=== PATIENT | female | born 1965 | race Caucasian/White ===

== ENCOUNTER 2019-08-25 13:45 | Outpatient (CLI) | payer MEDICARE, SELFPAY ==
[2019-08-25 13:56] LABS: Basophils Absolute Auto 0.1 K/mm3 (0.0-0.1); Basophils Percent Auto 1.3 % (0.2-1.2); Eosinophils Absolute Auto 0.2 K/mm3 (0-0.3); Eosinophils Percent Auto 3.9 % (0-4.4); Hematocrit 40.5 % (37.0-47.0); Hemoglobin 13.4 g/dL (12.0-15.0); Immature Granulocyte Absolute 0.01 K/mm3 (0.00-0.031); Immature Granulocyte Percent A 0.3 % (0-0.5); Lymphocytes Absolute Auto 1.09 K/mm3 (0.9-3.2); Lymphocytes Percent Auto 28.5 % (18.3-44.2); Mean Corpuscular HGB Conc 33.1 g/dl (32-36); Mean Corpuscular Hemoglobin 30.7 pg (26-34); Mean Corpuscular Volume 92.7 fl (80-100); Mean Platelet Volume 10.5 fl (7.4-10.4); Monocytes Absolute Auto 0.3 K/mm3 (0.1-0.6); Monocytes Percent Auto 8.1 % (2.6-8.5); Neutrophils Absolute Auto 2.2 K/mm3 (1.3-6.7); Neutrophils Percent Auto 57.9 % (45.5-73.1); Platelet Count Result 221 k/mm3 (150-375); Red Blood Count 4.37 M/mm3 (4.2-5.4); Red Cell Distribution Width 12.5 % (11.5-14.5); White Blood Count 3.8 K/mm3 (4.5-10.0)
[2019-08-25 14:06] LABS: Cholesterol 166 mg/dL (0-200); HDL Direct 70 mg/dL; Triglycerides 103 mg/dL (<150)
[2019-08-25 14:11] LABS: CRP < 0.5 mg/dL (<1.0)
[2019-08-25 14:17] LABS: LDL Cholesterol Direct 73 mg/dL
[2019-08-25 14:19] LABS: Erythrocyte Sedimentation Rate 7 mm/hr (0-20)
[2019-08-25 14:35] LABS: Free T4 Free Thyroxine 0.97 ng/mL (0.78-2.19)
[2019-08-28 01:59] LABS: Homocysteine 13.7 umol/L (<10.4)
[2019-08-30 15:55] LABS: Vitamin D 1,25 (OH)2 Total 49 pg/mL (18-72); Vitamin D2 1,25 (OH)2 38 pg/mL; Vitamin D3 1,25 (OH)2 11 pg/mL
== END 2019-08-25 13:46 | disposition home or self-care (01) ==
PROVIDERS: PCP Internal Medicine; Visit Provider Internal Medicine
DX: E78.2 Mixed hyperlipidemia (principal); Z79.899 Other long term (current) drug therapy; I10 Essential (primary) hypertension; E55.9 Vitamin D deficiency, unspecified; R79.89 Other specified abnormal findings of blood chemistry; H57.12 Ocular pain, left eye; R51 Headache
CPT/HCPCS: 36415; 80061; 82652; 83090; 84439; 84443; 85025; 85652; 86140

== ENCOUNTER 2019-10-10 14:19 | Outpatient (CLI) | payer MEDICARE, SELFPAY ==
--- NOTE | ~2019-10-10 | XR_ITS ---
EXAMINATION: XR chest 2V DATE: 10/10/2019 14:49 INDICATION: Cough, shortness of breath, fever TECHNIQUE: Frontal and lateral views of the chest are obtained COMPARISON: 06/18/2017 FINDINGS: The lungs are free of acute opacities. There is no pleural effusion or pneumothorax. The ca rdiomediastinal silhouette is normal. There is mild thoracic spondylosis. IMPRESSION: 1. No acute cardiopulmonary abnormality. Reviewed, dictated and finalized at location B.
[2019-10-10 15:05] LABS: Influenza Control Positive
== END 2019-10-10 14:20 | disposition home or self-care (01) ==
PROVIDERS: PCP Internal Medicine; Visit Provider Internal Medicine
DX: R05 Cough (principal); R09.89 Other specified symptoms and signs involving the circulatory and respiratory systems
CPT/HCPCS: 71046; 87804

== ENCOUNTER 2019-12-23 15:05 | Outpatient (CLI) | payer MEDICARE, SELFPAY ==
--- NOTE | ~2019-12-23 | MM_ITS ---
EXAMINATION: MM screening biju BI w lisandro HISTORY: Screening mammogram TECHNIQUE: Craniocaudal and mediolateral oblique 3-D tomosynthesis images were obtained and synthetic 2-D images were generated. CAD analysis was submitted and interpreted. COMPARISON: 08/07/2018, 07/01/2017, 01/08/2016 bilateral digital mammogram examinations 01/08/2016 complete right breast ultrasound BREAST PARENCHYMAL COMPOSITION: The breasts are heterogeneously dense, which may obscure small masses . FINDINGS: There is no evidence of suspicious mass, calcification, or architectural distortion to sugg est malignancy in either breast. There has been no suspicious interval change. IMPRESSION: 1. No mammographic evidence of malignancy. 2. Recommend routine screening mammography in one year. BI-RADS Category 1: Negative Reviewed, dictated and finalized at location A.
== END 2019-12-23 15:06 | disposition home or self-care (01) ==
PROVIDERS: PCP Internal Medicine; Visit Provider Obstetrics & Gynecology
DX: Z12.31 Encounter for screening mammogram for malignant neoplasm of breast (principal)
CPT/HCPCS: 77063; 77067

== ENCOUNTER 2020-06-05 10:05 | Outpatient (CLI) | payer MEDICARE, SELFPAY ==
[2020-06-05 11:24] LABS: Basophils Percent Auto 0.9 % (0.2-1.2); Eosinophils Absolute Auto 0.1 K/mm3 (0-0.3); Eosinophils Percent Auto 1.1 % (0-4.4); Hemoglobin 14.2 g/dL (12.0-15.0); Immature Granulocyte Absolute 0.02 K/mm3 (0.00-0.031); Immature Granulocyte Percent A 0.4 % (0-0.5); Lymphocytes Absolute Auto 0.88 K/mm3 (0.9-3.2); Lymphocytes Percent Auto 19.1 % (18.3-44.2); Mean Corpuscular Hemoglobin 31.2 pg (26-34); Mean Corpuscular Volume 94.5 fl (80-100); Mean Platelet Volume 9.3 fl (7.4-10.4); Monocytes Absolute Auto 0.4 K/mm3 (0.1-0.6); Monocytes Percent Auto 8.5 % (2.6-8.5); Neutrophils Absolute Auto 3.2 K/mm3 (1.3-6.7); Platelet Count Result 277 k/mm3 (150-375); Red Blood Count 4.55 M/mm3 (4.2-5.4); Red Cell Distribution Width 12.2 % (11.5-14.5); White Blood Count 4.6 K/mm3 (4.5-10.0)
[2020-06-05 11:39] LABS: Alanine Aminotransferase 13 U/L (4-35); Albumin Level 4.9 g/dL (3.5-5.1); Alkaline Phosphatase 108 U/L (38-126); Anion Gap 12 mmol/L (8-16); Aspartate Amino Transferase 22 U/L (14-36); Bilirubin,Total 0.3 mg/dL (0.2-1.3); Blood Urea Nitrogen 12 mg/dL (7-17); Calcium 9.2 mg/dL (8.4-10.2); Carbon Dioxide 24 mmol/L (22-30); Chloride 100 mmol/L (98-107); Cholesterol 193 mg/dL (0-200); Estimated Glomerular Filt Rate > 60; Glucose 103 mg/dL (65-105); HDL Direct 98 mg/dL; Magnesium 1.9 mg/dL (1.6-2.3); Potassium 4.6 mmol/L (3.4-5.0); Sodium 136 mmol/L (137-145); Triglycerides 129 mg/dL (<150)
[2020-06-05 11:50] LABS: LDL Cholesterol Direct 61 mg/dL
[2020-06-05 12:24] LABS: Free T4 Free Thyroxine 0.71 ng/mL (0.78-2.19)
[2020-06-05 12:46] LABS: Folic Acid > 20.0 ng/mL (2.76->20); Vitamin B12 > 1000.0 pg/mL (239-931)
--- NOTE | 2020-06-11 12:47 | WPDHOLTEREM ---
Holter/Event Monitor Holter/Event Monitor Date of procedure: 06/05/20 Procedure Type: 48 hour holter monitor Indications: Tachycardia Conclusion: 1. 48 hour holter monitor on 06/05/20. 2. Underlying rhythm is sinus rhythm. HR range 53-132 bpm; average HR 78 bpm. 3. There are 17 premature supraventricular complexes and 1 supraventricular couplet. No supraventricular tachycardia. 4. There are 342 premature ventricular complexes. No ventricular tachycardia. 5. No sinoatrial or atrioventricular blocks. No significant pauses greater than 2 seconds. 6. Patient reports symptoms of throbbing head pain, lightheadedeness, overbeating, chest throbbing which demonstrate sinus rhythm, HR range 59-120 bpm.
== END 2020-06-05 10:06 | disposition home or self-care (01) ==
PROVIDERS: PCP Internal Medicine; Visit Provider Internal Medicine
DX: R00.0 Tachycardia, unspecified (principal); K21.9 Gastro-esophageal reflux disease without esophagitis; Z79.899 Other long term (current) drug therapy; E78.2 Mixed hyperlipidemia; I10 Essential (primary) hypertension; M35.2 Behcet's disease
CPT/HCPCS: 36415; 80053; 80061; 82607; 82746; 83735; 84439; 84443; 85025; 93225; 93226

== ENCOUNTER 2020-06-11 09:58 | Outpatient (CLI) | payer MEDICARE, SELFPAY ==
--- NOTE | ~2020-06-11 | CT_ITS ---
EXAMINATION: CTA chest DATE: 06/11/2020 10:47 INDICATION: Subclavian steal syndrome. TECHNIQUE: Computed tomographic angiography (CTA) of the chest was performed with 100 mL Omnipaque-35 0 intravenous contrast. Automated exposure control and iterative reconstruction technique were employ ed. The dose-length product was 236.18 mGy-cm. Maximum intensity projection 3D-reconstructions of the aorta and other arteries were constructed by the technologist on a separate workstation. COMPARISON: Chest CT 06/09/2011, 05/08/2016 FINDINGS: The lungs demonstrate mild atelectasis. There is a 3 mm nodule in left lower lobe, likely b enign. A calcified left lung nodule and calcified left hilar and mediastinal lymph nodes are consiste nt with old granulomatous disease. No pleural effusion. The heart size is normal. There are coronary artery calcifications. No pericardial effusion. The heart size is normal. No pericardial effusion. Th ere is mild stenosis of proximal left subclavian artery. Left vertebral artery is dominant. Calcifica tions in the spleen are consistent with old granulomatous disease. There is mild thoracic spondylosis . IMPRESSION: 1. Mild stenosis of proximal left subclavian artery, likely not hemodynamically significant. Reviewed, dictated and finalized at location A. 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
== END 2020-06-11 09:59 | disposition home or self-care (01) ==
PROVIDERS: PCP Internal Medicine; Visit Provider Internal Medicine
DX: G45.8 Other transient cerebral ischemic attacks and related syndromes (principal); R00.0 Tachycardia, unspecified; I70.8 Atherosclerosis of other arteries
CPT/HCPCS: 71275; Q9967

== ENCOUNTER 2020-06-15 07:48 | Outpatient (CLI) | payer MEDICARE, SELFPAY ==
--- NOTE | 2020-06-15 07:58 | ECHO_ITS ---
Patient Info Name: Ruth Aguayo Age: 54 years : 1965 Gender: Female Ht: 67 in Wt: 150 lbs BSA: 1.80 m2 HR: 69 bpm BP: 132 / 81 mmHg Exam Date: 06/15/2020 8:15 AM Exam Location: [facility] Patient Status: Outpatient Admit Date: 06/15/2020 Staff Ordering Physician: Jacky Lee MD Auto Customize Painter: Chapin Bocanegra RDCS, RT Attending Provider: Jacky Lee MD Referring Physician: Rosa MONZON; Exam Type: CA echo doppler color flow Study Info Indications I10 - Essential (primary) hypertension Complete two-dimensional, color flow and Doppler transthoracic echocardiogram is performed. Strain analysis performed. Summary 1. Complete two-dimensional, color flow and Doppler transthoracic echocardiogram is performed. 2. Left ventricular chamber dimension is normal. 3. Left ventricular systolic function is normal, estimated at 60-65%. 4. The left ventricular diastolic function is normal. 5. E/e' 7 is not elevated. 6. Global longitudinal strain is normal at -20.1%. 7. No pulmonary hypertension, estimated pulmonary arterial systolic pressure is 28 mmHg. 8. Dilated inferior vena cava with >50% collapse upon inspiration consistent with elevated right atrial pressure, 10 mmHg. Left Ventricle E/e' 7 is not elevated. Global longitudinal strain is normal at -20.1%. Left ventricular chamber dimension is normal. Left ventricular systolic function is normal, estimated at 60-65%. The left ventricular diastolic function is normal. Right Ventricle Right ventricular chamber dimension is normal. Right ventricular systolic function is normal. Left Atria Left atrial chamber dimension is normal. Right Atria Right atrial chamber dimension is normal. Aortic Valve The aortic valve is trileaflet. There is no aortic valve stenosis. There is no aortic valve regurgitation. Pulmonic Valve There is no pulmonic regurgitation. Mitral Valve There is no mitral valve stenosis. There is no mitral valve regurgitation. Tricuspid Valve There is no tricuspid valve regurgitation. No pulmonary hypertension, estimated pulmonary arterial systolic pressure is 28 mmHg. Pericardium/Pleural There is no pericardial effusion. Inferior Vena Cava Dilated inferior vena cava with >50% collapse upon inspiration consistent with elevated right atrial pressure, 10 mmHg. Aorta The aortic root size at the sinus of Valsalva is normal. Left Ventricular Outflow Tract Name Value Normal LVOT 2D LVOT Diameter 2.0 cm LVOT Doppler LVOT Peak Gradient 4 mmHg LVOT Mean Gradient 2 mmHg LVOT VTI 18 cm LVOT VTI/AV VTI Ratio 0.6 LVOT Stroke Volume 54 ml LVOT CO 3.6 l/min LVOT CI 2.0 l/min/m2 Mitral Valve Name Value Normal
== END 2020-06-15 07:49 | disposition home or self-care (01) ==
PROVIDERS: PCP Internal Medicine; Visit Provider Internal Medicine
DX: I10 Essential (primary) hypertension (principal)
CPT/HCPCS: 93306

== ENCOUNTER 2020-10-09 10:02 | Outpatient (CLI) | payer MEDICARE, SELFPAY ==
--- NOTE | ~2020-10-09 | DEXA_ITS ---
Bone Density Report Name: Ruth Aguayo Age: 54 Sex: Female Ethnicity: White Date of : 1965 Indication: postmenopausal; parental hip fracture; height loss; inflammatory bowel disease; prior fracture; seizure disorder; hysterectomy; Referring Provider: VAMSI IRAHETA Study: Bone densitometry was performed. Exam Date: October 09, 2020 Accession number: [id number] Bone Density: Region BMD T-score Z-score Classification AP Spine (L1-L4) 0.937 -1.0 0.2 Normal Femoral Neck (Left) 0.704 -1.3 -0.2 Osteopenia Total Hip (Left) 0.800 -1.2 -0.4 Osteopenia Total Hip Bilateral Avg 0.799 -1.2 -0.4 Osteopenia Femoral Neck (Right) 0.700 -1.3 -0.2 Osteopenia Total Hip (Right) 0.796 -1.2 -0.4 Osteopenia World Health Organization criteria for BMD impression classify patients as: Normal (T-score at or above -1.0), Osteopenia (T-score between -1.0 and -2.5), or Osteoporosis (T-score at or below -2.5). 10-year Fracture Risk(1): Major Osteoporotic Fracture 23% Hip Fracture 0.9% Reported Risk Factors: [place] (), Neck BMD=0.700, BMI=24.0, previous fracture, parental fracture (1) FRAX(R) Version 3.08. Fracture probability calculated for an untreated patient. Fracture probability may be lower if the patient has received treatment. Previous Exams: Region Exam Age BMD T-score BMD Change BMD Change Date g/cm2 vs Baseline vs Previous AP Spine(L1-L4) 10/09/2020 54 0.937 -1.0 -0.251(-21.1%) -0.112(-10.7%) 01/14/2011 45 1.049 0.0 -0.138(-11.6%) -0.006(-0.5%) 12/14/2007 42 1.055 0.1 -0.133(-11.2%) -0.133(-11.2%) 11/19/2005 40 1.187 1.3 Total Hip(Left) 10/09/2020 54 0.800 -1.2 -0.258(-24.4%) -0.048(-5.7%)* 09/30/2018 52 0.848 -0.8 -0.210(-19.8%) -0.068(-7.4%)# 01/14/2011 45 0.916 -0.2 -0.142(-13.4%) -0.089(-8.8%)* 12/14/2007 42 1.005 0.5 -0.053(-5.0%)* -0.053(-5.0%)* 11/19/2005 40 1.058 1.0 Total Hip(Right) 10/09/2020 54 0.796 -1.2 -0.253(-24.1%) -0.044(-5.2%)* 09/30/2018 52 0.840 -0.8 -0.210(-20.0%) -0.046(-5.2%)# 01/14/2011 45 0.885 -0.5 -0.164(-15.6%) -0.114(-11.4%) 12/14/2007 42 0.999 0.5 -0.050(-4.8%)* -0.050(-4.8%)* 11/19/2005 40 1.049 0.9 *Denotes significance at 95% confidence level, LSC for AP Spine = 0.022 g/cm2, LSC for Total Hip = 0.027 g/cm2 Clinical Information Provided by Patient: Has had a low trauma fracture Parent has had a hip fracture Has used the following medications: Vitamin D, Calcium Has the follow
== END 2020-10-09 10:03 | disposition home or self-care (01) ==
LOC: ANHIMG 10:09
PROVIDERS: PCP Internal Medicine; Visit Provider Internal Medicine
DX: Z78.0 Asymptomatic menopausal state (principal); M85.852 Other specified disorders of bone density and structure, left thigh; M85.851 Other specified disorders of bone density and structure, right thigh
CPT/HCPCS: 77080

== ENCOUNTER → 2020-11-05 01:56 | Outpatient (CLI) | payer MEDICARE, SELFPAY ==
[2020-11-05 19:04] LABS: SARS-CoV-2 RNA PCR Negative
== END ==
PROVIDERS: PCP Internal Medicine; Visit Provider Internal Medicine Gastroenterology
DX: Z01.812 Encounter for preprocedural laboratory examination (principal); Z20.822 Contact with and (suspected) exposure to COVID-19
CPT/HCPCS: C9803; U0003; U0005

== ENCOUNTER 2020-11-08 01:53 | Day surgery (SDC) | payer MEDICARE, SELFPAY ==
[2020-11-02 13:10] VITALS: BMI 23.4
[2020-11-08 07:33] VITALS: BP 135/79; PULSE 90; RESP 16; TEMP 36.4; O2SAT 98; BMI 23.2
--- NOTE | 2020-11-08 07:45 | WPDANESEPPF ---
Anes - Initial Pre Proc Eval Procedure: Operation Date: 11/08/20 08:30 Proposed Procedures p Esophagogastroduodenoscopy & Screening Colonoscopy - Trevor Younger MD Date/Time: 11/08/20 07:45 Surgeon: Trevor Younger MD Pre Op Diagnosis: odynophagia, family hx of colon ca Patient Data Age: 55 Gender: F Height: 5 ft 7 in Weight: 67.2 kg Last Vital Signs Temp 36.4 C 11/08/20 07:33 Pulse 90 11/08/20 07:33 Resp 16 11/08/20 07:33 BP 135/79 11/08/20 07:33 Pulse Ox 98 11/08/20 07:33 Allergies Allergy/AdvReac Type Severity Reaction Status Date / Time sulfamethoxazole Allergy Intermediate Hives / Verified 11/08/20 07:31 Red Face trimethoprim Allergy Intermediate Hives / Verified 11/08/20 07:31 Red Face butorphanol Allergy Mild Other Verified 11/08/20 07:31 meperidine Allergy Mild Other Verified 11/08/20 07:31 adhesive tape Allergy Unknown Rash Verified 11/08/20 07:31 certolizumab pegol Allergy Unknown Other Verified 11/08/20 07:31 gentamicin Allergy Unknown RASH Verified 11/08/20 07:31 infliximab Allergy Unknown Other Verified 11/08/20 07:31 methocarbamol Allergy Unknown Other Verified 11/08/20 07:31 prochlorperazine Allergy Unknown DYSTONIA, Verified 11/08/20 07:31 UNCONTROLLABLE ACTIONS promethazine Allergy Unknown DYSTONIA, Verified 11/08/20 07:31 UNCONTROLLABLE ACTIONS Quinolones Allergy Unknown SEVERE Verified 11/08/20 07:31 VOMITING BUTORPHANOL TARTRATE Allergy Unknown Other Uncoded 11/08/20 07:31 MOXIFLOXACIN HCL Allergy Unknown Nausea and Uncoded 11/08/20 07:31 Vomiting PROCHLORPERAZINE EDISYLATE Allergy Unknown dystonia Uncoded 11/08/20 07:31 PROCHLORPERAZINE MALEATE Allergy Unknown dystonia Uncoded 11/08/20 07:31 SOLIFENACIN SUCCINATE Allergy Unknown Itching Uncoded 11/08/20 07:31 Tegaderm Allergy Rash Uncoded 11/08/20 07:31 Home Medications Medication Instructions Recorded Confirmed Type apremilast 30 mg tablet 30 mg PO BID 06/02/19 11/08/20 History aspirin 81 mg tablet,delayed 81 mg PO DAILY 06/02/19 11/08/20 History release colchicine 0.6 mg capsule 0.6 mg PO BID 06/02/19 11/08/20 History docusate sodium 100 mg capsule 200 mg PO DAILY cap 06/02/19 11/08/20 History meloxicam 15 mg tablet 15 mg PO DAILY 06/02/19 11/08/20 History topiramate 200 mg tablet 200 mg PO TID PRN 06/02/19 11/08/20 History magnesium chloride 71.5 mg 71.5 mg PO DAILY #90 tablet 01/23/20 11/08/20 Rx (magnesium chloride) tablet,delayed release omeprazole 40 mg capsule,delayed 40 mg PO BID #180 cap 02/28/20 11/08/20 Rx release pravastatin 80 mg tablet 80 mg PO DAILY #90 tablet 06/19/20 11/08/20 Rx Naltrexone 3 mg PO DAILY 07/18/20 11/08/20 History cyanocobalamin (vitamin B-12) 1,000 mcg PO DAILY tablet 07/18/20 11/08/20 History 1,000 mcg tablet sennosides 17.2 mg tablet 17.2 mg PO DAILY #1 tablet 07/24/20 11/08/20 Rx diltiazem HCl 360 mg 360 mg PO DAILY #180 cap 08/14/20 11/08/20 Rx capsule,extended release 24 hr folic acid 1 mg tablet 1 mg PO DAILY #90 tablet 08/22/20 11/08/20 Rx hydroxyzine HCl 25 mg tablet See Rx Instructions .ROUTE 09/17/20 11/08/20 Rx .COMPLEX #180 tablet alendronate 70 mg tablet 70 mg PO WEEKLY #12 tablet 10/10/20 11/08/20 Rx rizatriptan 10 mg disintegrating See Rx Instructions .ROUTE 10/16/20 11/08/20 Rx tablet .COMPLEX #30 tablet Docusate/Senokot 3 tablet PO DAILY 11/02/20 11/08/20 History carbamazepine 200 mg PO TID PRN 11/02/20 11/08/20 History dicyclomine 10 mg PO QID PRN 11/02/20 11/08/20 History ondansetron HCl See Rx Instructions .ROUTE 11/02/20 11/08/20 History .COMPLEX PRN tizanidine 2 mg PO QID PRN 11/02/20 11/08/20 History Patient hx anesthesia problems: none Family hx anesthesia problems: none PMFSH Past Medical History Medical History Anxiety Behcet's disease Benign essential hypertension BMI 24.0-24.9, adult Bronchopneumonia Chronic low back pain
[2020-11-08] MEDS: LACTATED RINGERS 1,000 ML 150 ML IV CONT (07:49)
--- NOTE | 2020-11-08 08:07 | PM.HPGS ---
History of Present Illness History of Present Illness Consent: Risks, benefits, and alternatives have been discussed and questions answered. Patient agrees to proceed with procedure. 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 She also has a family history of colon cancer and has had a polyp removed herself Review of Systems Review of Systems: All systems reviewed & are unremarkable except as noted in HPI and below PMFSH Past Medical History Medical History Anxiety Behcet's disease Benign essential hypertension BMI 24.0-24.9, adult Bronchopneumonia Chronic low back pain Chronic pain Colon cancer screening Cough Depression Diverticulitis Diverticulitis Dystonia Elevated homocysteine Encounter for preventive health examination Fibromyalgia Fibromyalgia affecting multiple sites Flu-like symptoms Follow up GERD (gastroesophageal reflux disease) Hyperlipidemia Interstitial cystitis Migraine headache On fdc drug therapy Palpitations Pancolitis Peripheral neuropathy Post menopausal syndrome Postmenopausal RLQ abdominal pain Seizures Shortness of breath Stenosis of left subclavian artery Tachycardia Vitamin D deficiency Family History Family History Mother Hypertension Family history of lupus erythematosus Grandparent Carcinoma of colon Family history of coronary artery disease Family history of rheumatoid arthritis Family history of primary malignant neoplasm of liver Other Family history of cardiovascular disease Family history of gastrointestinal disorder Social History Social History Smoking packs per day: 1 Smoking cigarettes per day: 20.0 Years smoked: 20 Smoking pack-years: 20.00 Smoking status: Former smoker Second hand tobacco smoke exposure: No Smoking end date: 07/20/11 Alcohol intake: current Living arrangements: alone Gender identity (if verbalized by the patient): Female Spiritual care concerns: No Meds Home Medications and Allergies Home Medications Medication Instructions Recorded Confirmed Type apremilast 30 mg tablet 30 mg PO BID 06/02/19 11/08/20 History aspirin 81 mg tablet,delayed 81 mg PO DAILY 06/02/19 11/08/20 History release colchicine 0.6 mg capsule 0.6 mg PO BID 06/02/19 11/08/20 History docusate sodium 100 mg capsule 200 mg PO DAILY cap 06/02/19 11/08/20 History meloxicam 15 mg tablet 15 mg PO DAILY 06/02/19 11/08/20 History topiramate 200 mg tablet 200 mg PO TID PRN 06/02/19 11/08/20 History magnesium chloride 71.5 mg 71.5 mg PO DAILY #90 tablet 01/23/20 11/08/20 Rx (magnesium chloride) tablet,delayed release omeprazole 40 mg capsule,delayed 40 mg PO BID #180 cap 02/28/20 11/08/20 Rx release pravastatin 80 mg tablet 80 mg PO DAILY #90 tablet 06/19/20 11/08/20 Rx Naltrexone 3 mg PO DAILY 07/18/20 11/08/20 History cyanocobalamin (vitamin B-12) 1,000 mcg PO DAILY tablet 07/18/20 11/08/20 History 1,000 mcg tablet sennosides 17.2 mg tablet 17.2 mg PO DAILY #1 tablet 07/24/20 11/08/20 Rx diltiazem HCl 360 mg 360 mg PO DAILY #180 cap 08/14/20 11/08/20 Rx capsule,extended release 24 hr folic acid 1 mg tablet 1 mg PO DAILY #90 tablet 08/22/20 11/08/20 Rx hydroxyzine HCl 25 mg tablet See Rx Instructions .ROUTE 09/17/20 11/08/20 Rx .COMPLEX #180 tablet alendronate 70 mg tablet 70 mg PO WEEKLY #12 tablet 10/10/20 11/08/20 Rx rizatriptan 10 mg disintegrating See Rx Instructions .ROUTE 10/16/20 11/08/20 Rx tablet .COMPLEX #30 tablet Docusate/Senokot 3 tablet PO DAILY 11/02/20 11/08/20 History carbamazepine 200 mg PO TID PRN 11/02/20 11/08/20 History dicyclomine 10 mg PO QID PRN 11/02/20 11/08/20 History ondansetron HCl See
--- NOTE | 2020-11-08 08:25 | SUR.OPER ---
08 EGD COMPLETED, 829 COLONOSCOPY STARTED
[2020-11-08 08:56] VITALS: BP 120/97; PULSE 76; RESP 14; O2SAT 99
[2020-11-08 09:06] VITALS: BP 134/87; PULSE 74; RESP 20; O2SAT 100
[2020-11-08 09:16] VITALS: BP 130/91; PULSE 78; RESP 18; O2SAT 100
== END 2020-11-08 09:32 | disposition home or self-care (01) ==
PROVIDERS: PCP Internal Medicine; Visit Provider Internal Medicine Gastroenterology
PROC: 0DJ08ZZ Inspection of Upper Intestinal Tract, Via Natural or Artificial Opening Endoscopic (ICD-10-PCS; CPT 43235; principal; 2020-11-08 08:30)
DX: Z12.11 Encounter for screening for malignant neoplasm of colon (principal); D12.2 Benign neoplasm of ascending colon; K22.70 Barrett's esophagus without dysplasia; K21.9 Gastro-esophageal reflux disease without esophagitis; Z80.0 Family history of malignant neoplasm of digestive organs; M35.2 Behcet's disease; E78.5 Hyperlipidemia, unspecified; E55.9 Vitamin D deficiency, unspecified; F41.8 Other specified anxiety disorders; I10 Essential (primary) hypertension; M79.7 Fibromyalgia; G24.9 Dystonia, unspecified; G62.9 Polyneuropathy, unspecified; G40.909 Epilepsy, unspecified, not intractable, without status epilepticus; Z79.82 Long term (current) use of aspirin; Z87.891 Personal history of nicotine dependence
CPT/HCPCS: 45381; 45388; 43239; 88305; 88313; J2704; J7120

== ENCOUNTER 2020-11-22 12:46 | Outpatient (CLI) | payer MEDICARE, SELFPAY ==
--- NOTE | ~2020-11-22 | US_ITS ---
EXAMINATION: US carotid duplex BI DATE: 11/22/2020 13:31 INDICATION: Carotid atherosclerosis presenting with other specified symptoms and signs involving the cervicothoracic/respiratory system. TECHNIQUE: Grayscale, color Doppler, and pulsed Doppler images of the cervical carotid arteries were obtained. The degree of vessel stenosis is placed in one of the following categories: normal, <50%, 5 0-69%, >=70% but less than near-occlusion, near-occlusion, or total occlusion. Note that percent sten osis relative to normal distal artery lumen diameter is indirectly measured from velocity measurement s as described by Bartolo, et al. Radiology 2003; 229:340-346. COMPARISON: None. FINDINGS: RIGHT: The right common carotid artery (CCA) peak systolic velocity (PSV) is 92 cm/s. The right internal car otid artery (ICA) PSV is 57 cm/s. The right ICA end-diastolic velocity (EDV) is 22 cm/s. The right IC A/CCA PSV ratio is 0.6. Grayscale and color Doppler images yield an estimate of <50% diameter reducti on from plaque in the ICA. The external carotid artery (ECA) PSV is 73 cm/s. There is antegrade flow in the right vertebral artery. LEFT: The left CCA PSV is 75 cm/s. The left ICA PSV is 87 cm/s. The left ICA EDV is 35 cm/s. The left ICA/C CA PSV ratio is 1.2. Grayscale and color Doppler images yield an estimate of <50% diameter reduction from plaque in the ICA. The ECA PSV is 77 cm/s. There is antegrade flow in the left vertebral artery. IMPRESSION: 1. <50% stenosis from minimal plaque in the right internal carotid artery. 2. <50% stenosis from minimal plaque in the left internal carotid artery. Reviewed, dictated and finalized at location A.
== END 2020-11-22 12:47 | disposition home or self-care (01) ==
PROVIDERS: PCP Internal Medicine; Visit Provider Internal Medicine Cardiovascular Disease
DX: I65.23 Occlusion and stenosis of bilateral carotid arteries (principal)
CPT/HCPCS: 93880

== ENCOUNTER 2020-12-06 15:55 | Outpatient (CLI) | payer MEDICARE, SELFPAY ==
--- NOTE | ~2020-12-06 | XR_ITS ---
XR knee RT min 4V DATE: 12/06/2020 16:26 INDICATION: Right knee pain, burning. No known injury. TECHNIQUE: 4 views COMPARISON: None FINDINGS: No fracture or dislocation or joint effusion. No periosteal reaction or bone destruction. N o radiopaque intra-articular loose body or chondrocalcinosis. There is mild loss of height of medial compartment joint space. IMPRESSION: Mild loss of height at medial compartment joint space Reviewed, dictated and finalized at location B.
== END 2020-12-06 15:56 | disposition home or self-care (01) ==
LOC: ANHIMG 16:02
PROVIDERS: PCP Internal Medicine; Visit Provider Internal Medicine
DX: M25.561 Pain in right knee (principal)
CPT/HCPCS: 73564

== ENCOUNTER 2021-02-25 15:43 | Outpatient (CLI) | payer MEDICARE, SELFPAY ==
--- NOTE | ~2021-02-25 | MM_ITS ---
EXAMINATION: MM screening biju BI w lisandro HISTORY: Screening TECHNIQUE: Craniocaudal and mediolateral oblique 3-D tomosynthesis images were obtained and synthetic 2-D images were generated. CAD analysis was submitted and interpreted. COMPARISON: Comparison to multiple prior studies sequentially, with oldest reviewed study dated 01/06. BREAST PARENCHYMAL COMPOSITION: The breasts are extremely dense, which lowers the sensitivity of mamm ography FINDINGS: There is no evidence of suspicious mass, calcification, or architectural distortion to sugg est malignancy in either breast. There has been no suspicious interval change. IMPRESSION: 1. No mammographic evidence of malignancy. 2. Recommend routine screening mammography in one year. BI-RADS Category 1: Negative Reviewed, dictated and finalized at location A.
== END 2021-02-25 15:44 | disposition home or self-care (01) ==
LOC: ANHIMG 15:46
PROVIDERS: PCP Internal Medicine; Visit Provider Obstetrics & Gynecology
DX: Z12.31 Encounter for screening mammogram for malignant neoplasm of breast (principal)
CPT/HCPCS: 77063; 77067

== ENCOUNTER 2021-06-24 16:09 | Outpatient (CLI) | payer MEDICARE, SELFPAY ==
[2021-06-24 16:40] LABS: Alanine Aminotransferase 16 U/L (4-35); Alkaline Phosphatase 113 U/L (38-126); Anion Gap 10 mmol/L (8-16); Aspartate Amino Transferase 24 U/L (14-36); Bilirubin,Total 0.4 mg/dL (0.2-1.3); Blood Urea Nitrogen 9 mg/dL (7-17); Calcium 9.6 mg/dL (8.4-10.2); Carbon Dioxide 21 mmol/L (22-30); Chloride 101 mmol/L (98-107); Cholesterol 186 mg/dL (0-200); Estimated Glomerular Filt Rate 57; Glucose 99 mg/dL (65-110); HDL Direct 109 mg/dL; Potassium 4.2 mmol/L (3.4-5.0); Sodium 132 mmol/L (137-145); Triglycerides 137 mg/dL (<150)
[2021-06-24 16:51] LABS: LDL Cholesterol Direct 51 mg/dL
[2021-06-24 17:41] LABS: Hemoglobin A1C 5.2 % (<5.7)
[2021-06-24 19:03] LABS: Vitamin D 25 Hydroxy 41.8 ng/mL
== END 2021-06-24 16:10 | disposition home or self-care (01) ==
PROVIDERS: PCP Internal Medicine; Visit Provider Internal Medicine
DX: Z79.899 Other long term (current) drug therapy (principal); I10 Essential (primary) hypertension; E78.2 Mixed hyperlipidemia; E55.9 Vitamin D deficiency, unspecified
CPT/HCPCS: 36415; 80053; 80061; 82306; 83036; 84439; 84443

== ENCOUNTER 2021-06-28 14:30 | Outpatient (CLI) | payer MEDICARE, BC, SELFPAY ==
--- NOTE | ~2021-06-28 | CT_ITS ---
EXAMINATION: CTA brain carotid DATE: 06/28/2021 15:09 INDICATION: Bruit of left carotid artery. TECHNIQUE: Computed tomographic angiography (CTA) of the head was performed without and with 100 mL O mnipaque-350 intravenous contrast. CTA of the neck was performed with intravenous contrast. Automated exposure control and iterative reconstruction technique were employed. The dose-length product was 1 728.29 mGy-cm. Maximum intensity projection and volume rendered 3D-reconstructions were created by ranjit jarrett technologist on a separate workstation. COMPARISON: Head CT 8 12/12/2015, brain MRI 02/10/2017 FINDINGS: HEAD CTA: There is no intracranial hemorrhage, acute infarction, or abnormal intracranial mass lesion . There is an old lacunar infarct in the right lentiform nucleus. The ventricles are normal in size. The paranasal sinuses are clear. The mastoid air cells are normal. The orbits are normal. Left verteb ral artery is dominant. There is no significant stenosis of basilar artery or the posterior cerebral arteries. The posterior communicating arteries are normal. There is no significant stenosis of the in tracranial internal carotid arteries or anterior or middle cerebral arteries. Anterior communicating artery is normal. There is no aneurysm. NECK CTA: There is mild scarring at the lung apices. There is no significant stenosis of the vertebra l arteries. There is minimal plaque in the proximal internal carotid arteries. There is 0% stenosis o f the proximal right internal carotid artery relative to normal distal artery lumen diameter (NASCET criteria). There is 0% stenosis of the proximal left internal carotid artery relative to normal dista l artery lumen diameter. There are nodules in the thyroid measuring up to 4 mm, likely not clinically significant. There is moderate cervical spondylosis. IMPRESSION: 1. Old lacunar infarct in the right lentiform nucleus. 2. No aneurysm or significant intracranial arterial stenosis. 3. 0% stenosis of the proximal internal carotid arteries relative to normal distal artery lumen diame ters (NASCET criteria). Reviewed, dictated and finalized at location A. 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 Old lacunar infarct in the right lentiform nucleus. 2. No aneurysm or significant intracranial arterial stenosis. 3. 0% stenosis of the proximal internal carotid arteries relative to normal dis madeleine artery lumen diameters (NASCET criteria).
== END 2021-06-28 14:31 | disposition home or self-care (01) ==
LOC: ANHIMG 14:32
PROVIDERS: PCP Internal Medicine; Visit Provider Internal Medicine Cardiovascular Disease
DX: Z86.73 Personal history of transient ischemic attack (TIA), and cerebral infarction without residual deficits (principal); R09.89 Other specified symptoms and signs involving the circulatory and respiratory systems
CPT/HCPCS: 70496; 70498; Q9967

== ENCOUNTER 2022-02-17 11:50 | Outpatient (CLI) | payer MEDICARE, SELFPAY ==
[2022-02-17 12:31] LABS: Add Urine Microscopic? NO; Appearance Urine Clear (Clear); Bilirubin Urine Negative (Negative); Blood Urine Negative (Negative); Color Urine Yellow (Yellow); Glucose Urine UA Negative (Negative); Ketones Urine Negative (Negative); Leukocyte Esterase Ur Negative LEU/UL (Negative); Nitrate Urine Negative (Negative); Protein Urine Negative (Negative); Urobilinogen Urine 0.2 mg/dL (<2.0)
== END 2022-02-17 11:51 | disposition home or self-care (01) ==
PROVIDERS: PCP Internal Medicine; Visit Provider Internal Medicine
DX: R39.9 Unspecified symptoms and signs involving the genitourinary system (principal)
CPT/HCPCS: 81003

== ENCOUNTER 2022-02-21 11:37 | Outpatient (CLI) | payer MEDICARE, SELFPAY ==
--- NOTE | ~2022-02-21 | XR_ITS ---
XR thoracic spine 3V DATE: 02/21/2022 12:08 INDICATION: Upper back pain. No trauma. TECHNIQUE: AP, lateral, swimmer views COMPARISON: None FINDINGS: Osteopenia. There is degenerative disc disease of the lower cervical spine. There is mild levoscoliosis of the thoracic spine. No fracture or dislocation or bone destruction is detected. The thoracic pedicles are intact. There is mild degenerative spurring of the thoracic spine . No paraspinal soft tissue thickening. IMPRESSION: Osteopenia. Mild levoscoliosis Mild degenerative spurring of the thoracic spine Degenerative disc disease of the lower cervical spine Reviewed, dictated and finalized at location B.
--- NOTE | ~2022-02-21 | XR_ITS ---
XR_CERV2-3V_CR DATE: 02/21/2022 12:08 INDICATION: Neck pain TECHNIQUE: AP, open-mouth, lateral views COMPARISON: None FINDINGS: C1 and C2 are normally aligned and the odontoid process is intact. No fracture or dislocati on or locked facet or prevertebral soft tissue swelling. There is moderate loss of height at the C4-5 interspace with mild posterior spurring. There is mild loss of height at C5-6 interspace.. Moderate degenerative disc disease at C6-7. IMPRESSION: Mild cervical spondylosis Reviewed, dictated and finalized at Location A. Reviewed, dictated and finalized at location B. IMPRESSION: Mild cervical spondylosis
--- NOTE | ~2022-02-21 | XR_ITS ---
EXAMINATION: XR shoulder LT min 2V DATE: 02/21/2022 12:08 INDICATION: Left scapula pain. Dorsalgia. TECHNIQUE: 4 views of left shoulder were obtained. COMPARISON: Left shoulder radiographs 02/12/2008 FINDINGS: Bone alignment is normal. No fracture. There is mild osteoarthritis of glenohumeral joint a nd severe osteoarthritis of acromioclavicular joint. IMPRESSION: 1. Polyarticular osteoarthritis. Reviewed, dictated and finalized at location A.
== END 2022-02-21 11:38 | disposition home or self-care (01) ==
PROVIDERS: PCP Internal Medicine; Visit Provider Internal Medicine
DX: M25.519 Pain in unspecified shoulder (principal); M54.9 Dorsalgia, unspecified; M85.88 Other specified disorders of bone density and structure, other site; M41.84 Other forms of scoliosis, thoracic region; M50.30 Other cervical disc degeneration, unspecified cervical region; M47.812 Spondylosis without myelopathy or radiculopathy, cervical region; M19.012 Primary osteoarthritis, left shoulder
CPT/HCPCS: 72040; 72072; 73030

== ENCOUNTER 2022-03-18 11:51 | Outpatient (CLI) | payer MEDICARE, SELFPAY ==
--- NOTE | ~2022-03-18 | XR_ITS ---
EXAMINATION: XR chest 2V DATE: 03/18/2022 12:57 INDICATION: Cough, unspecified. TECHNIQUE: Frontal and lateral views of the chest were obtained. COMPARISON: Chest 2 views 10/10/2019 FINDINGS: There is no pneumonia, pleural effusion, or pneumothorax. A calcified left lung nodule and calcified mediastinal lymph nodes are consistent with old granulomas disc disease. The heart size is normal. IMPRESSION: 1. No acute cardiopulmonary disease. Reviewed, dictated and finalized at location A.
[2022-03-18 13:28] LABS: Anion Gap 16 mmol/L (8-16); Blood Urea Nitrogen 11 mg/dL (7-17); Calcium 9.5 mg/dL (8.4-10.2); Carbon Dioxide 20 mmol/L (22-30); Chloride 105 mmol/L (98-107); Estimated Glomerular Filt Rate > 60; Glucose 99 mg/dL (65-110); Potassium 4.4 mmol/L (3.4-5.0); Sodium 141 mmol/L (137-145)
== END 2022-03-18 11:52 | disposition home or self-care (01) ==
PROVIDERS: PCP Internal Medicine; Visit Provider Internal Medicine
DX: R06.89 Other abnormalities of breathing (principal); R05.9 Cough, unspecified
CPT/HCPCS: 36415; 71046; 80048

== ENCOUNTER 2022-03-27 08:54 | Outpatient (CLI) | payer MEDICARE, SELFPAY ==
--- NOTE | ~2022-03-27 | MM_ITS ---
EXAMINATION: MM screening biju BI w lisandro HISTORY: Screening mammogram TECHNIQUE: Craniocaudal and mediolateral oblique 3-D tomosynthesis images were obtained and synthetic 2-D images were generated. CAD analysis was submitted and interpreted. COMPARISON: 03/07/2021, 12/23/2019, 08/07/2018, 07/01/2017 bilateral screening mammogram examinations BREAST PARENCHYMAL COMPOSITION: The breasts are heterogeneously dense, which may obscure small masses . FINDINGS: There is suggestion of asymmetry/architectural distortion anteriorly in the lower inner lef t breast; diagnostic left mammogram and left breast ultrasound examination are recommended. Otherwise there is no evidence of suspicious mass, calcification, or architectural distortion to sugg est malignancy in either breast. There has been no other suspicious interval change. IMPRESSION: 1. Suggestion of asymmetry/architectural distortion in the lower anterior inner left breast 2. Diagnostic left mammogram and left breast ultrasound examination are recommended BI-RADS Category 0: Incomplete: Needs additional imaging evaluation. Reviewed, dictated and finalized at location A. IMPRESSION: 1. Suggestion of asymmetry/architectural distortion in the lower anterior inner left breast 2. Diagnostic left mammogram and left breast ultrasound examination are recomme nded BI-RADS Category 0: Incomplete: Needs additional imaging evaluation.
== END 2022-03-27 08:55 | disposition home or self-care (01) ==
PROVIDERS: PCP Internal Medicine; Visit Provider Obstetrics & Gynecology
DX: Z12.31 Encounter for screening mammogram for malignant neoplasm of breast (principal); R92.8 Other abnormal and inconclusive findings on diagnostic imaging of breast
CPT/HCPCS: 77063; 77067

== ENCOUNTER 2022-04-02 11:25 | Outpatient (CLI) | payer MEDICARE, SELFPAY ==
[2022-04-02 12:05] LABS: Appearance Urine Clear (Clear); Bilirubin Urine Negative (Negative); Color Urine Yellow (Yellow); Glucose Urine UA Negative (Negative); Ketones Urine Negative (Negative); Leukocyte Esterase Ur Trace LEU/UL (Negative); Nitrate Urine Negative (Negative); Protein Urine Negative (Negative); Specific Grav Ur 1.015 (1.001-1.035); Urobilinogen Urine 0.2 mg/dL (<2.0); pH Urine 6.5 (5.0-9.0)
[2022-04-02 12:14] LABS: Mucus Urine Rare /lpf; RBC Urine 0-2 /hpf (0-2); WBC Urine 0-3 /hpf
[2022-04-02 12:15] LABS: Alanine Aminotransferase 16 U/L (6-35); Albumin Level 4.3 g/dL (3.5-5.1); Alkaline Phosphatase 110 U/L (38-126); Anion Gap 11 mmol/L (8-16); Aspartate Amino Transferase 17 U/L (14-36); Bilirubin,Total 0.4 mg/dL (0.2-1.3); Blood Urea Nitrogen 13 mg/dL (7-17); Carbon Dioxide 22 mmol/L (22-30); Chloride 105 mmol/L (98-107); Cholesterol 155 mg/dL (0-200); Estimated Glomerular Filt Rate 57; Glucose 105 mg/dL (65-110); HDL Direct 78 mg/dL; Potassium 4.3 mmol/L (3.4-5.0); Sodium 138 mmol/L (137-145); Triglycerides 81 mg/dL (<150)
[2022-04-02 12:26] LABS: LDL Cholesterol Direct 49 mg/dL
[2022-04-02 12:33] LABS: Add Urine Microscopic? YES; Blood Urine Trace-Intact (Negative)
[2022-04-02 12:54] LABS: Vitamin D 25 Hydroxy 43.5 ng/mL
[2022-04-02 13:03] LABS: Bacteria Urine Trace /hpf
[2022-04-02 13:28] LABS: Folic Acid > 20.0 ng/mL (2.76->20); Vitamin B12 > 1000.0 pg/mL (239-931)
== END 2022-04-02 11:26 | disposition home or self-care (01) ==
LOC: ANHLAB 11:28
PROVIDERS: PCP Internal Medicine; Visit Provider Internal Medicine
DX: E78.2 Mixed hyperlipidemia (principal); E55.9 Vitamin D deficiency, unspecified; I10 Essential (primary) hypertension; Z51.81 Encounter for therapeutic drug level monitoring; Z79.899 Other long term (current) drug therapy
CPT/HCPCS: 36415; 80053; 80061; 81001; 82306; 82607; 82746

== ENCOUNTER 2022-04-11 11:04 | Outpatient (CLI) | payer MEDICARE, SELFPAY ==
--- NOTE | ~2022-04-11 | MMUS_ITS ---
EXAMINATION: MM diagnostic biju LT w lisandro, US breast LT limited HISTORY: Left breast asymmetry on screening mammogram TECHNIQUE: Additional 3-D tomosynthesis images of the left breast were performed and synthetic 2-D im ages were generated. CAD analysis was submitted and interpreted. High resolution limited left breast ultrasound was performed. COMPARISON: 03/27/2022, 02/25/2021, 12/23/2019, 07/28/2018 FINDINGS: MAMMOGRAPHIC FINDINGS: There is a return to baseline fibroglandular appearance with spot compression of the left breast in t he area questioned on screening mammogram. ULTRASOUND: There is no evidence of focal abnormal solid or cystic mass in the vicinity of the mammographic findi ng in question. IMPRESSION: 1. No mammographic or sonographic evidence of malignancy. 2. Recommend routine screening mammography in one year. BI-RADS Category 1: Negative Reviewed, dictated and finalized at location A. IMPRESSION: 1. No mammographic or sonographic evidence of malignancy. 2. Recommend routine screening mammography in one year. BI-RADS Category 1: Negative
== END 2022-04-11 11:05 | disposition home or self-care (01) ==
LOC: ANHIMG 11:05
PROVIDERS: PCP Internal Medicine; Visit Provider Obstetrics & Gynecology
DX: R92.8 Other abnormal and inconclusive findings on diagnostic imaging of breast (principal)
CPT/HCPCS: 76642; 77061; 77065; G0279

== ENCOUNTER 2022-08-12 07:39 | Outpatient (CLI) | payer MEDICARE, SELFPAY ==
--- NOTE | ~2022-08-12 | XR_ITS ---
EXAMINATION: XR sinus min 3V DATE: 08/12/2022 08:07 INDICATION: Runny nose and congestion. Vertigo. TECHNIQUE: 5 views of the paranasal sinuses were obtained. COMPARISON: Head CT 06/28/2021 FINDINGS: Bone alignment is normal. No fracture. There is mild mucosal thickening in right maxillary sinus. IMPRESSION: 1. Mild mucosal thickening in right maxillary sinus. Reviewed, dictated and finalized at location A. 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
== END 2022-08-12 07:40 | disposition home or self-care (01) ==
LOC: ANHIMG 07:43
PROVIDERS: PCP Internal Medicine; Visit Provider Internal Medicine
DX: J34.89 Other specified disorders of nose and nasal sinuses (principal); R51.9 Headache, unspecified
CPT/HCPCS: 70220

== ENCOUNTER 2022-09-10 14:15 | Outpatient (CLI) | payer MEDICARE, SELFPAY ==
[2022-09-10 15:12] LABS: Basophils Percent Auto 0.7 % (0.2-1.2); Eosinophils Percent Auto 0.7 % (0-4.4); Hematocrit 41.8 % (37.0-47.0); Hemoglobin 13.5 g/dL (12.0-15.0); Immature Granulocyte Absolute 0.01 K/mm3 (0.00-0.031); Immature Granulocyte Percent A 0.2 % (0-0.5); Lymphocytes Absolute Auto 0.98 K/mm3 (0.9-3.2); Mean Corpuscular HGB Conc 32.3 g/dl (32-36); Mean Corpuscular Hemoglobin 29.6 pg (26-34); Mean Corpuscular Volume 91.7 fl (80-100); Monocytes Absolute Auto 0.4 K/mm3 (0.1-0.6); Monocytes Percent Auto 8.6 % (2.6-8.5); Neutrophils Absolute Auto 2.7 K/mm3 (1.3-6.7); Neutrophils Percent Auto 65.8 % (45.5-73.1); Platelet Count Result 241 k/mm3 (150-375); Red Blood Count 4.56 M/mm3 (4.2-5.4); Red Cell Distribution Width 13.3 % (11.5-14.5); White Blood Count 4.1 K/mm3 (4.5-10.0)
[2022-09-10 15:27] LABS: Alanine Aminotransferase 18 U/L (6-35); Alkaline Phosphatase 86 U/L (38-126); Anion Gap 7 mmol/L (8-16); Aspartate Amino Transferase 22 U/L (14-36); Bilirubin,Total 0.5 mg/dL (0.2-1.3); Blood Urea Nitrogen 13 mg/dL (7-17); Calcium 8.8 mg/dL (8.4-10.2); Carbon Dioxide 22 mmol/L (22-30); Chloride 104 mmol/L (98-107); Cholesterol 189 mg/dL (0-200); Estimated Glomerular Filt Rate > 60; Glucose 88 mg/dL (65-110); HDL Direct 108 mg/dL; Potassium 4.5 mmol/L (3.4-5.0); Sodium 133 mmol/L (137-145); Triglycerides 122 mg/dL (<150)
[2022-09-10 15:38] LABS: LDL Cholesterol Direct 46 mg/dL
[2022-09-10 16:21] LABS: Hemoglobin A1C 5.3 % (<5.7)
[2022-09-10 16:32] LABS: Free T4 Free Thyroxine 0.77 ng/mL (0.78-2.19)
[2022-09-14 15:00] LABS: Triiodothyronine T3 Free 2.2 pg/mL (2.3-4.2)
== END 2022-09-10 14:16 | disposition home or self-care (01) ==
LOC: ANHLAB 14:17
PROVIDERS: PCP Internal Medicine; Visit Provider Internal Medicine
DX: E78.2 Mixed hyperlipidemia (principal); Z13.29 Encounter for screening for other suspected endocrine disorder; Z79.899 Other long term (current) drug therapy; Z13.1 Encounter for screening for diabetes mellitus; I10 Essential (primary) hypertension; R79.89 Other specified abnormal findings of blood chemistry
CPT/HCPCS: 36415; 80053; 80061; 83036; 84439; 84443; 84481; 85025

== ENCOUNTER 2023-01-26 13:09 | Outpatient (CLI) | payer MEDICARE, SELFPAY ==
[2023-01-26 13:25] LABS: Eosinophils Absolute Auto 0.1 K/mm3 (0-0.3); Eosinophils Percent Auto 1.9 % (0-4.4); Hematocrit 40.3 % (37.0-47.0); Hemoglobin 12.5 g/dL (12.0-15.0); Immature Granulocyte Absolute 0.01 K/mm3 (0.00-0.031); Immature Granulocyte Percent A 0.2 % (0-0.5); Lymphocytes Absolute Auto 1.05 K/mm3 (0.9-3.2); Lymphocytes Percent Auto 25.1 % (18.3-44.2); Mean Corpuscular Hemoglobin 28.5 pg (26-34); Mean Corpuscular Volume 91.8 fl (80-100); Mean Platelet Volume 9.7 fl (7.4-10.4); Monocytes Absolute Auto 0.4 K/mm3 (0.1-0.6); Monocytes Percent Auto 9.6 % (2.6-8.5); Neutrophils Absolute Auto 2.6 K/mm3 (1.3-6.7); Neutrophils Percent Auto 62.2 % (45.5-73.1); Platelet Count Result 245 k/mm3 (150-375); Red Blood Count 4.39 M/mm3 (4.2-5.4); Red Cell Distribution Width 13.4 % (11.5-14.5); White Blood Count 4.2 K/mm3 (4.5-10.0)
[2023-01-26 13:36] LABS: Alanine Aminotransferase 19 U/L (6-35); Albumin Level 4.4 g/dL (3.5-5.1); Alkaline Phosphatase 93 U/L (38-126); Anion Gap 4 mmol/L (8-16); Aspartate Amino Transferase 22 U/L (14-36); Bilirubin,Total 0.4 mg/dL (0.2-1.3); Blood Urea Nitrogen 11 mg/dL (7-17); Calcium 8.7 mg/dL (8.4-10.2); Carbon Dioxide 25 mmol/L (22-30); Chloride 102 mmol/L (98-107); Cholesterol 159 mg/dL (0-200); Estimated Glomerular Filt Rate 57; Glucose 97 mg/dL (65-110); HDL Direct 93 mg/dL; Potassium 4.2 mmol/L (3.4-5.0); Sodium 131 mmol/L (137-145); Triglycerides 87 mg/dL (<150)
[2023-01-26 13:41] LABS: Hemoglobin A1C 5.5 % (<5.7)
[2023-01-26 13:47] LABS: LDL Cholesterol Direct 38 mg/dL
[2023-01-26 14:53] LABS: Vitamin D 25 Hydroxy 53.7 ng/mL
[2023-01-29 05:29] LABS: Triiodothyronine T3 Free 2.6 pg/mL (2.3-4.2)
== END 2023-01-26 13:10 | disposition home or self-care (01) ==
PROVIDERS: PCP Internal Medicine; Visit Provider Internal Medicine
DX: I10 Essential (primary) hypertension (principal); R79.89 Other specified abnormal findings of blood chemistry; Z79.899 Other long term (current) drug therapy; E55.9 Vitamin D deficiency, unspecified; E78.2 Mixed hyperlipidemia
CPT/HCPCS: 36415; 80053; 80061; 82306; 83036; 84439; 84443; 84481; 85025

== ENCOUNTER 2023-03-04 13:02 | Outpatient (CLI) | payer MEDICARE, SELFPAY ==
--- NOTE | ~2023-03-04 | CT_ITS ---
EXAMINATION: CT lung screening DATE: 03/04/2023 13:25 INDICATION: Z87.891 - Personal history of nicotine dependence TECHNIQUE: Computed tomography (CT) of the chest was performed without intravenous contrast. Addition al 3D reconstructions utilizing coronal maximum intensity projection (MIP) were performed. Automated exposure control and iterative reconstruction technique were employed. The dose-length product was 57 .66 mGy-cm. COMPARISON: Chest CT dated 06/11/2020 FINDINGS: Calcified left lower lobe nodule along with calcite left hilar and mediastinal lymph nodes and a few hepatic and splenic calcifications, all consistent with old granulomatous disease. A few unchanged ti ny pulmonary nodules, the largest measuring 3 mm in the left upper lobe which given the elapsed inter rubina is also most consistent with old granulomatous disease. No new or enlarging pulmonary nodules. Th ere is a new 2-3 mm endobronchial lesion within a subsegmental bronchus in subsegmental proximal of t he posterior segment of the right upper lobe. No pneumonia, pulmonary edema, pleural effusion or pneu mothorax. Heart size is normal. Atherosclerotic coronary artery calcific location. No pericardial eff usion. Thoracic aorta is normal in caliber. Mild thoracic levocurvature with moderate spondylosis. IMPRESSION: 1. Lung-RADS category 2: Benign appearance or behavior. Continue annual screening with noncontrast lo w-dose chest CT in 12 months. Reviewed, dictated and finalized at location A. IMPRESSION: 1. Lung-RADS category 2: Benign appearance or behavior. Continue annual screeni ng with noncontrast low-dose chest CT in 12 months.
== END 2023-03-04 13:03 | disposition home or self-care (01) ==
PROVIDERS: PCP Internal Medicine; Visit Provider Internal Medicine
DX: Z12.2 Encounter for screening for malignant neoplasm of respiratory organs (principal); R91.8 Other nonspecific abnormal finding of lung field; Z87.891 Personal history of nicotine dependence; Z80.1 Family history of malignant neoplasm of trachea, bronchus and lung
CPT/HCPCS: 71271

== ENCOUNTER 2023-03-25 15:43 | Outpatient (CLI) | payer MEDICARE, SELFPAY ==
--- NOTE | ~2023-03-25 | US_ITS ---
EXAMINATION: US carotid duplex BI DATE: 03/25/2023 16:48 INDICATION: Transient ischemic attack TECHNIQUE: Grayscale, color Doppler, and pulsed Doppler images of the cervical carotid arteries were obtained. The degree of vessel stenosis is placed in one of the following categories: normal, <50%, 5 0-69%, >=70% but less than near-occlusion, near-occlusion, or total occlusion. Note that percent sten osis relative to normal distal artery lumen diameter is indirectly measured from velocity measurement s as described by Bartolo, et al. Radiology 2003; 229:340-346. COMPARISON: 11/22/2020 FINDINGS: RIGHT: The right common carotid artery (CCA) peak systolic velocity (PSV) is 116 cm/s. The right internal ca rotid artery (ICA) PSV is 67 cm/s. The right ICA end-diastolic velocity (EDV) is 20 cm/s. The right I CA/CCA PSV ratio is 0.6. Grayscale and color Doppler images yield an estimate of <50% diameter reduct ion from plaque in the ICA. The external carotid artery (ECA) PSV is 100 cm/s. There is antegrade reginaldo w in the right vertebral artery. LEFT: The left CCA PSV is 103 cm/s. The left ICA PSV is 64 cm/s. The left ICA EDV is 20 cm/s. The left ICA/ CCA PSV ratio is 0.6. Grayscale and color Doppler images yield an estimate of <50% diameter reduction from plaque in the ICA. The ECA PSV is 66 cm/s. There is antegrade flow in the left vertebral artery . IMPRESSION: 1. <50% stenosis in the right internal carotid artery. 2. <50% stenosis in the left internal carotid artery. Reviewed, dictated and finalized at location A.
== END 2023-03-25 15:44 | disposition home or self-care (01) ==
LOC: ANHIMG 15:44
PROVIDERS: PCP Internal Medicine; Visit Provider Internal Medicine
DX: I65.23 Occlusion and stenosis of bilateral carotid arteries (principal); Z86.73 Personal history of transient ischemic attack (TIA), and cerebral infarction without residual deficits
CPT/HCPCS: 93880

== ENCOUNTER 2023-04-17 00:40 | Day surgery (SDC) | payer MEDICARE, SELFPAY ==
[2023-04-10 14:17] VITALS: BMI 21.4
--- NOTE | 2023-04-16 12:23 | PM.HPGS ---
History of Present Illness History of Present Illness Consent: Risks, benefits, and alternatives have been discussed and questions answered. Patient agrees to proceed with procedure. Chief complaint: Dysphagia, unspecified Narrative: Ruth Lee is a 57 year old female Who was been having difficulty with swallowing. 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 Review of Systems Review of Systems: All systems reviewed & are unremarkable except as noted in HPI and below PMFSH Past Medical History Medical History Anxiety Behcet's disease Benign essential hypertension BMI 21.0-21.9, adult BMI 22.0-22.9, adult BMI 23.0-23.9, adult BMI 24.0-24.9, adult BPPV (benign paroxysmal positional vertigo) Breast cancer screening Breast pain Broken foot Bronchopneumonia Bruit Cervicalgia Chondromalacia Chronic low back pain Chronic pain Colon cancer screening Cough Depression Diverticulitis Diverticulitis DJD (degenerative joint disease) of knee CALDERON (dyspnea on exertion) Dystonia Elevated homocysteine Encounter for preventive health examination Encounter for routine adult health examination with abnormal findings Encounter for routine adult health examination without abnormal findings Fibromyalgia Fibromyalgia affecting multiple sites Flu-like symptoms Follow up GERD (gastroesophageal reflux disease) History of lacunar cerebrovascular accident Hyperlipidemia Insomnia Interstitial cystitis Macular degeneration Mental confusion Migraine headache Non-intractable vomiting On jail drug therapy Oral ulceration Osteopenia Osteoporosis Palpitations Pancolitis Peripheral neuropathy Postmenopausal Prepatellar bursitis Right knee pain RLQ abdominal pain Screening for osteoporosis Seizures Shortness of breath Sinus drainage Skin lesions Stenosis of left subclavian artery Stomach pain Tachycardia UTI symptoms Vaginal discharge Vaginal itching Vertigo Vitamin D deficiency Vulvar pain Surgical History Surgical History H/O laparoscopy x2 H/O left knee surgery H/O: hysterectomy History of carpal tunnel surgery History of dilatation and curettage History of endometrial ablation History of rectal surgery History of tonsillectomy Hx of cone biopsy of cervix S/P shoulder surgery Family History Family History Mother Hypertension Family history of lupus erythematosus Grandparent Carcinoma of colon Family history of coronary artery disease Family history of rheumatoid arthritis Family history of primary malignant neoplasm of liver Other Family history of cardiovascular disease Family history of gastrointestinal disorder Social History Social History Smoking packs per day: 1 Smoking cigarettes per day: 20.0 Years smoked: 20 Smoking pack-years: 20.00 Smoking status: Former smoker Tobacco type: cigarettes Second hand tobacco smoke exposure: No Smoking end date: 07/20/11 Alcohol intake: never Substance use type: does not use Lack of Transportation: No Lack of Food: Never True Current Housing: I Have Housing Concerned About Future Housing: No Difficulty Paying Gas/Electric Bills: No Difficulty Paying for Meds: No Currently Unemployed: No Education: Bachelor's Degree Difficulty w/ Childcare or Family Care: No Living arrangements: with family Additional occupation/education comments: disabled Gender identity (if verbalized by the patient): Female Spiritual care concerns: No Meds Home Medications and Allergies Home Medications Medication Instructions Recorded Confirmed Type apremilast 30 mg tablet (Otezla) 30 mg PO BID 06/02/19 04/17/23 History aspirin 81 mg tablet,delayed 81 mg PO DAILY 06/02/19 04/17/23 H
[2023-04-17 09:12] VITALS: BP 132/87; PULSE 91; RESP 18; TEMP 36.2; O2SAT 100; BMI 21.4
[2023-04-17] MEDS: LACTATED RINGERS 1,000 ML 150 ML IV CONT (09:53)
--- NOTE | 2023-04-17 10:08 | WPDANESEPPF ---
Anes - Initial Pre Proc Eval Procedure: Operation Date: 04/17/23 10:30 Proposed Procedures p Esophagogastroduodenoscopy - Trevor Younger MD Date/Time: 04/17/23 10:08 Surgeon: Trevor Younger MD Pre Op Diagnosis: Dysphagia, unspecified Patient Data Age: 57 Gender: F Height: 1.7 m Weight: 62.2 kg Last Vital Signs Temp 97.1 F L 04/17/23 09:12 Pulse 91 04/17/23 09:12 Resp 18 04/17/23 09:12 BP 132/87 04/17/23 09:12 Pulse Ox 100 04/17/23 09:12 O2 Del Method Room Air 04/17/23 09:12 Allergies Allergy/AdvReac Type Severity Reaction Status Date / Time moxifloxacin Allergy Severe Nausea and Verified 04/17/23 09:21 Vomiting silver Allergy Severe itching Verified 04/17/23 09:21 [From Tegaderm AG Mesh] solifenacin Allergy Intermediate itching Verified 04/17/23 09:21 sulfamethoxazole Allergy Intermediate Hives / Verified 04/17/23 09:21 Red Face trimethoprim Allergy Intermediate Hives / Verified 04/17/23 09:21 Red Face butorphanol Allergy Mild Other Verified 04/17/23 09:21 meperidine Allergy Mild Other Verified 04/17/23 09:21 adhesive tape Allergy Unknown Rash Verified 04/17/23 09:21 certolizumab pegol Allergy Unknown Other Verified 04/17/23 09:21 gentamicin Allergy Unknown RASH Verified 04/17/23 09:21 infliximab Allergy Unknown Other Verified 04/17/23 09:21 methocarbamol Allergy Unknown Other Verified 04/17/23 09:21 prochlorperazine Allergy Unknown DYSTONIA, Verified 04/17/23 09:21 UNCONTROLLABLE ACTIONS promethazine Allergy Unknown DYSTONIA, Verified 04/17/23 09:21 UNCONTROLLABLE ACTIONS Quinolones Allergy Unknown SEVERE Verified 04/17/23 09:21 VOMITING fesoterodine [From Toviaz] Allergy Unknown Verified 04/17/23 09:21 nitrofurantoin Allergy Unknown Verified 04/17/23 09:21 [From Macrobid] alendronate sodium AdvReac Intermediate Nausea and Verified 04/17/23 09:21 [From Fosamax] Vomiting antiemtics Allergy Severe Other Uncoded 04/17/23 09:21 Home Medications Medication Instructions Recorded Confirmed Type apremilast 30 mg tablet (Otezla) 30 mg PO BID 06/02/19 04/17/23 History aspirin 81 mg tablet,delayed 81 mg PO DAILY 06/02/19 04/17/23 History release (Adult Low Dose Aspirin) colchicine (gout) 0.6 mg capsule 0.6 mg PO BID 06/02/19 04/17/23 History meloxicam 15 mg tablet 15 mg PO DAILY 06/02/19 04/17/23 History cyanocobalamin (vitamin B-12) 1,000 mcg PO DAILY 12/06/20 04/17/23 History 1,000 mcg tablet (Vitamin B-12) topiramate 200 mg tablet 200 mg PO BID Seizures #120 tabs 02/12/22 04/17/23 Rx carbamazepine 200 mg tablet 200 mg PO BID 04/30/22 04/17/23 History cholecalciferol (vitamin D3) 50 50 mcg PO DAILY 04/30/22 04/17/23 History mcg (2,000 unit) capsule diphenhydramine HCl 25 mg capsule 50 mg PO QHS PRN Itching 11/11/22 04/17/23 History (Benadryl) tizanidine 4 mg capsule 4 mg PO TID PRN Pain 11/11/22 04/17/23 History diltiazem HCl 360 mg See Rx Instructions .Route 02/02/23 04/17/23 Rx capsule,extended release 24 hr .COMPLEX #180 caps folic acid 1 mg tablet See Rx Instructions .Route 02/27/23 04/17/23 Rx .COMPLEX #90 tabs omeprazole 40 mg capsule,delayed See Rx Instructions .Route 03/02/23 04/17/23 Rx release .COMPLEX #180 caps pravastatin 80 mg tablet See Rx Instructions .Route 04/02/23 04/17/23 Rx .COMPLEX #90 tabs rizatriptan 10 mg disintegrating See Rx Instructions .Route 04/02/23 04/17/23 Rx tablet .COMPLEX #30 tabs dicyclomine 10 mg capsule See Rx Instructions .Route 04/10/23 04/17/23 History .COMPLEX PRN Irritable Bowel docusate sodium 100 mg capsule 100 mg PO DAILY 04/10/23 04/17/23 History magnesium chloride 71.5 mg 71.5 mg PO DAILY 04/10/23 04/17/23 History (magnesium chloride) tablet,delayed release (Nu-Mag) naltrexone 1.5 mg capsule 3 mg PO DAILY 04/10/23 04/17/23 History sennosides 8.6 mg tablet (senna) 8.6 mg PO DAILY 04/10/23 04/17/23 History ondansetron HCl 8 mg tablet See Rx Instr
[2023-04-17 10:30] VITALS: BP 137/72; PULSE 77; RESP 20; O2SAT 100
[2023-04-17 10:40] VITALS: BP 124/76; PULSE 75; RESP 20; O2SAT 100
[2023-04-17 10:50] VITALS: BP 142/87; PULSE 75; RESP 20; O2SAT 100
== END 2023-04-17 10:59 | disposition home or self-care (01) ==
PROVIDERS: PCP Internal Medicine; Visit Provider Internal Medicine Gastroenterology
PROC: 0DJ08ZZ Inspection of Upper Intestinal Tract, Via Natural or Artificial Opening Endoscopic (ICD-10-PCS; CPT 43235; principal; 2023-04-17 10:30)
DX: K21.9 Gastro-esophageal reflux disease without esophagitis (principal); R13.19 Other dysphagia; F41.9 Anxiety disorder, unspecified; F32.A Depression, unspecified; M35.2 Behcet's disease; I10 Essential (primary) hypertension; E55.9 Vitamin D deficiency, unspecified; M81.0 Age-related osteoporosis without current pathological fracture; E78.5 Hyperlipidemia, unspecified; G47.00 Insomnia, unspecified; G62.9 Polyneuropathy, unspecified; M85.80 Other specified disorders of bone density and structure, unspecified site; Z86.73 Personal history of transient ischemic attack (TIA), and cerebral infarction without residual deficits; Z87.891 Personal history of nicotine dependence; Z79.82 Long term (current) use of aspirin; Z79.69 Long term (current) use of other immunomodulators and immunosuppressants
CPT/HCPCS: 43239; 88305; J2704; J7120

== ENCOUNTER 2023-04-20 09:49 | Outpatient (CLI) | payer MEDICARE, SELFPAY ==
--- NOTE | ~2023-04-20 | DEXA_ITS ---
Bone Density Report Name: BELKYS FRANKLIN Age: 57 Sex: Female Ethnicity: White Date of : 1965 Indication: postmenopausal; screening for osteoporosis; height loss; seizure disorder; hysterectomy; Referring Provider: RASHEL MALAVE Study: Bone densitometry was performed. Exam Date: April 20, 2023 Accession number: [id number] Bone Density: Region BMD T-score Z-score Classification AP Spine(L1-L4) 0.857 -1.7 -0.4 Osteopenia Femoral Neck (Left) 0.679 -1.5 -0.3 Osteopenia Total Hip (Left) 0.762 -1.5 -0.6 Osteopenia Femoral Neck (Right) 0.634 -1.9 -0.7 Osteopenia Total Hip (Right) 0.721 -1.8 -0.9 Osteopenia Total Hip Mean 0.741 -1.7 -0.8 Osteopenia World Health Organization criteria for BMD impression classify patients as: Normal (T-score at or above -1.0), Osteopenia (T-score between -1.0 and -2.5), or Osteoporosis (T-score at or below -2.5). 10-year Fracture Risk(1): Major Osteoporotic Fracture 8.6% Hip Fracture 1.1% Reported Risk Factors: [place] (), Neck BMD=0.634, BMI=22.3 (1) FRAX(R) Version 3.08. Fracture probability calculated for an untreated patient. Fracture probability may be lower if the patient has received treatment. Clinical Information Provided by Patient: Has used the following medications: Vitamin D, Calcium Has the following medical conditions: Any Seizure Disorders, Hysterectomy Patient maximum height was 67 No regular weight bearing exercise Does not regularly consume dairy products Drinks caffeinated beverages Onset of menses at age 13 Number of children 0 Impression: The patient has low bone mass, based on the Right Femoral Neck T-score. The patient has an estimated ten-year risk of hip fracture of 1.1% and an estimated ten-year risk of major fracture of 8.6%, based on the WHO FRAX algorithm. Discussion: BONE DENSITY IS LOW AT ONE OR MORE SKELETAL SITES. This patient's lowest T-score is low at one or more skeletal sites. It meets the World Health Organization's (WHO) criteria for ?low bone mass? (T-score between -1.0 and -2.5). The patient's 10-year risk of fracture as calculated by FRAX is less than the threshold where pharmacological therapy is recommended by the National Osteoporosis Foundation (NOF). However, all treatment decisions require clinical judgment and consideration of individual patient factors, including patient preferences, comorbidities, previous drug use, risk factors not captured in the FRAX model (e.g., frailty, falls, vitamin D deficiency, increased bone turnover, interval significant decline in bone density) and possible under or overestimation of fracture risk by FRAX. The patient should follow a healthful lifestyle (good nutrition with adequate calcium and vitamin D, and appropriate weight-bearing exercise). Follow-
== END 2023-04-20 09:50 | disposition home or self-care (01) ==
LOC: ANHIMG 09:51
PROVIDERS: PCP Internal Medicine; Visit Provider Obstetrics & Gynecology
DX: Z78.0 Asymptomatic menopausal state (principal); M85.89 Other specified disorders of bone density and structure, multiple sites; Z79.899 Other long term (current) drug therapy
CPT/HCPCS: 77080

== ENCOUNTER 2023-06-30 13:50 | Outpatient (CLI) | payer MEDICARE, SELFPAY ==
[2023-06-30 15:34] LABS: Anion Gap 8 mmol/L (8-16); Blood Urea Nitrogen 11 mg/dL (7-17); Calcium 8.9 mg/dL (8.4-10.2); Carbon Dioxide 22 mmol/L (22-30); Chloride 100 mmol/L (98-107); Cholesterol 169 mg/dL (0-200); Estimated Glomerular Filt Rate > 60; Glucose 91 mg/dL (65-110); HDL Direct 110 mg/dL; Potassium 4.5 mmol/L (3.4-5.0); Sodium 130 mmol/L (137-145); Triglycerides 120 mg/dL (<150)
[2023-06-30 15:44] LABS: LDL Cholesterol Direct 45 mg/dL
[2023-06-30 16:03] LABS: Thyroid Stimulating Hormone 0.997 uIU/mL (0.465-4.680)
[2023-06-30 16:19] LABS: Free T4 Free Thyroxine 0.99 ng/mL (0.78-2.19)
[2023-07-05 16:52] LABS: Triiodothyronine T3 Free 2.6 pg/mL (2.3-4.2)
== END 2023-06-30 13:51 | disposition home or self-care (01) ==
LOC: ANHLAB 13:54
PROVIDERS: PCP Internal Medicine; Visit Provider Internal Medicine
DX: E78.2 Mixed hyperlipidemia (principal); I10 Essential (primary) hypertension; R79.89 Other specified abnormal findings of blood chemistry; Z79.899 Other long term (current) drug therapy
CPT/HCPCS: 36415; 80048; 80061; 84439; 84443; 84481

== ENCOUNTER 2023-07-24 12:02 | Outpatient (CLI) | payer MEDICARE, SELFPAY ==
--- NOTE | ~2023-07-24 | XR_ITS ---
Right Knee Technique: AP, lateral, and sunrise views were obtained. Clinical History: Pain Findings: No fracture or dislocation is seen. Osseous alignment is anatomic. There is mild medial com partment narrowing on standing views. Soft tissues are unremarkable. No joint effusion is seen. Impression: Medial compartment narrowing on standing views. Reviewed, dictated and finalized at [facility]. LEDGE MANAGEMENT ADVISOR Impression: Medial compartment narrowing on standing views.
== END 2023-07-24 12:03 | disposition home or self-care (01) ==
PROVIDERS: PCP Internal Medicine; Visit Provider Internal Medicine
DX: M25.861 Other specified joint disorders, right knee (principal)
CPT/HCPCS: 73564

== ENCOUNTER 2023-07-28 15:20 | Outpatient (CLI) | payer MEDICARE, SELFPAY ==
--- NOTE | ~2023-07-28 | MM_ITS ---
EXAMINATION: MM screening biju BI w lisandro HISTORY: Screening mammogram TECHNIQUE: Craniocaudal and mediolateral oblique 3-D tomosynthesis images were obtained and synthetic 2-D images were generated. CAD analysis was submitted and interpreted. COMPARISON: 04/11/2022, 03/27/2022, 02/25/2021, 12/23/2019 BREAST PARENCHYMAL COMPOSITION:Dense: The breasts are extremely dense, which lowers the sensitivity o f mammography. FINDINGS: There is more conspicuous asymmetry in the central left breast on CC view only, lesion tim ed on the tomographic images, along the posterior margin of the fibroglandular tissue. No parenchymal abnormality the right breast seen. No suspicious metabolic calcification either breast. IMPRESSION: More conspicuous asymmetry in the central left breast on CC view, as detailed above. Spot compression views, and possibly ultrasound, recommended for further evaluation. BI-RADS Category 0: Incomplete: Needs additional imaging evaluation. Reviewed, dictated and finalized at location . EY OPERATOR SLAG IMPRESSION: More conspicuous asymmetry in the central left breast on CC view, as detailed a ming. Spot compression views, and possibly ultrasound, recommended for further evaluation. BI-RADS Category 0: Incomplete: Needs additional imaging evaluation.
== END 2023-07-28 15:21 | disposition home or self-care (01) ==
PROVIDERS: PCP Internal Medicine; Visit Provider Obstetrics & Gynecology
DX: Z12.31 Encounter for screening mammogram for malignant neoplasm of breast (principal); R92.8 Other abnormal and inconclusive findings on diagnostic imaging of breast
CPT/HCPCS: 77063; 77067

== ENCOUNTER 2023-08-06 12:50 | Outpatient (CLI) | payer MEDICARE, SELFPAY ==
--- NOTE | ~2023-08-06 | MMUS_ITS ---
EXAMINATION: MM diagnostic biju LT w lisandro, US breast LT complete HISTORY: Follow-up left breast asymmetry TECHNIQUE: Additional 3-D tomosynthesis images of the left breast were performed and synthetic 2-D im ages were generated. CAD analysis was submitted and interpreted. High resolution complete left breast ultrasound was performed. COMPARISON: 07/28/2023 BREAST PARENCHYMAL COMPOSITION: The breasts are extremely dense, which lowers the sensitivity of mamm ography FINDINGS: MAMMOGRAPHIC FINDINGS: There are no suspicious masses, calcifications or architectural distortion in the left breast to sugg est malignancy. ULTRASOUND: Complete US of all 4 quadrants of the left breast and retroareolar region was reviewed. Normal hetero geneous echotexture without focal solid or cystic mass. IMPRESSION: 1. No evidence for malignancy in the left breast. 2. Routine yearly screening mammogram and regular clinical breast examination are recommended. BI-RADS Category 1: Negative Reviewed, dictated and finalized at location A. MAKING MACHINE OPERATOR IMPRESSION: 1. No evidence for malignancy in the left breast. 2. Routine yearly screening mammogram and regular clinical breast examination a re recommended. BI-RADS Category 1: Negative
== END 2023-08-06 12:51 | disposition home or self-care (01) ==
PROVIDERS: PCP Internal Medicine; Visit Provider Obstetrics & Gynecology
DX: R92.8 Other abnormal and inconclusive findings on diagnostic imaging of breast (principal)
CPT/HCPCS: 76641; 77061; 77065; G0279

== ENCOUNTER 2023-08-31 00:10 | Day surgery (SDC) | payer MEDICARE, SELFPAY ==
[2023-08-25 09:29] VITALS: BMI 20.7
--- NOTE | 2023-08-28 10:23 | SUR.PREOP ---
Patient called regarding upcoming procedure. Reviewed preop instructions, appointment times, and procedure prep.
--- NOTE | 2023-08-28 13:57 | PM.HPGS ---
History of Present Illness History of Present Illness Consent: Risks, benefits, and alternatives have been discussed and questions answered. Patient agrees to proceed with procedure. Chief complaint: fam hx of malignant neoplasm of digestive organs Narrative: Ruth Lee is a 57 year old female Referred for colon cancer screening. Three years ago she had piecemeal removal of a flat tubular adenoma. Review of Systems Review of Systems: All systems reviewed & are unremarkable except as noted in HPI and below PMFSH Past Medical History Medical History Anxiety Behcet's disease Benign essential hypertension Bilateral knee pain BMI 20.0-20.9, adult BMI 21.0-21.9, adult BMI 22.0-22.9, adult BMI 23.0-23.9, adult BMI 24.0-24.9, adult BPPV (benign paroxysmal positional vertigo) Breast cancer screening Breast pain Broken foot Bronchopneumonia Bruit Cervicalgia Chondromalacia Chronic low back pain Chronic pain Colon cancer screening Cough Depression Diverticulitis Diverticulitis DJD (degenerative joint disease) of knee CALDERON (dyspnea on exertion) Dystonia Dysuria Elevated homocysteine Encounter for preventive health examination Encounter for routine adult health examination with abnormal findings Encounter for routine adult health examination without abnormal findings Fibromyalgia Fibromyalgia affecting multiple sites Flu-like symptoms Follow up GERD (gastroesophageal reflux disease) Hematuria History of lacunar cerebrovascular accident Hyperlipidemia Idiopathic neuropathy Insomnia Interstitial cystitis Macular degeneration Mental confusion Migraine headache Non-intractable vomiting On intermediate drug therapy Oral ulceration Osteopenia Osteoporosis Palpitations Pancolitis Peripheral neuropathy Postmenopausal Prepatellar bursitis Raynauds disease Right knee pain RLQ abdominal pain Screening for osteoporosis Seizures Shortness of breath Sinus drainage Skin lesions Stenosis of left subclavian artery Stomach pain Tachycardia UTI symptoms Vaginal discharge Vaginal itching Vertigo Vitamin D deficiency Vulvar pain Surgical History Surgical History H/O laparoscopy x2 H/O left knee surgery H/O: hysterectomy History of carpal tunnel surgery History of dilatation and curettage History of endometrial ablation History of rectal surgery History of tonsillectomy Hx of cone biopsy of cervix S/P shoulder surgery Family History Family History Mother Hypertension Family history of lupus erythematosus Grandparent Carcinoma of colon Family history of coronary artery disease Family history of rheumatoid arthritis Family history of primary malignant neoplasm of liver Other Family history of cardiovascular disease Family history of gastrointestinal disorder Social History Social History Smoking packs per day: 1 Smoking cigarettes per day: 20.0 Years smoked: 20 Smoking pack-years: 20.00 Smoking status: Former smoker Tobacco type: cigarettes Second hand tobacco smoke exposure: No Smoking end date: 07/20/11 Alcohol intake: never Substance use type: does not use Lack of Transportation: No Lack of Food: Never True Current Housing: I Have Housing Concerned About Future Housing: No Difficulty Paying Gas/Electric Bills: No Difficulty Paying for Meds: No Currently Unemployed: No Education: Bachelor's Degree Difficulty w/ Childcare or Family Care: No Living arrangements: with family Additional occupation/education comments: disabled Gender identity (if verbalized by the patient): Female Spiritual care concerns: No Meds Home Medications and Allergies Home Medications Medication Instructions Recorded Confirmed Type apremilast 30 mg ta
[2023-08-31 08:22] VITALS: BP 134/83; PULSE 86; RESP 18; TEMP 36.7; O2SAT 100
[2023-08-31] MEDS: LACTATED RINGERS 1,000 ML 150 ML IV CONT (08:40)
--- NOTE | 2023-08-31 09:04 | WPDANESEPPF ---
Anes - Initial Pre Proc Eval Procedure: Operation Date: 08/31/23 09:30 Proposed Procedures p Colonoscopy - Trevor Younger MD Date/Time: 08/31/23 09:04 Surgeon: Trevor Younger MD Pre Op Diagnosis: fam hx of malignant neoplasm of digestive organs Patient Data Age: 57 Gender: F Height: 1.7 m Weight: 60.2 kg Last Vital Signs Temp 98.1 F 08/31/23 08:22 Pulse 86 08/31/23 08:22 Resp 18 08/31/23 08:22 BP 134/83 08/31/23 08:22 Pulse Ox 100 08/31/23 08:22 O2 Del Method Room Air 08/31/23 08:22 Allergies Allergy/AdvReac Type Severity Reaction Status Date / Time moxifloxacin Allergy Severe Nausea and Verified 07/21/23 14:53 Vomiting silver Allergy Severe itching Verified 07/21/23 14:53 [From Tegaderm AG Mesh] solifenacin Allergy Intermediate itching Verified 07/21/23 14:53 sulfamethoxazole Allergy Intermediate Hives / Verified 07/21/23 14:53 Red Face trimethoprim Allergy Intermediate Hives / Verified 07/21/23 14:53 Red Face butorphanol Allergy Mild Other Verified 07/21/23 14:53 meperidine Allergy Mild Other Verified 07/21/23 14:53 adhesive tape Allergy Unknown Rash Verified 07/21/23 14:53 certolizumab pegol Allergy Unknown Other Verified 07/21/23 14:53 gentamicin Allergy Unknown RASH Verified 07/21/23 14:53 infliximab Allergy Unknown Other Verified 07/21/23 14:53 methocarbamol Allergy Unknown Other Verified 07/21/23 14:53 prochlorperazine Allergy Unknown DYSTONIA, Verified 07/21/23 14:53 UNCONTROLLABLE ACTIONS promethazine Allergy Unknown DYSTONIA, Verified 07/21/23 14:53 UNCONTROLLABLE ACTIONS Quinolones Allergy Unknown SEVERE Verified 07/21/23 14:53 VOMITING fesoterodine [From Toviaz] Allergy Unknown Verified 07/21/23 14:53 nitrofurantoin Allergy Unknown Verified 07/21/23 14:53 [From Macrobid] alendronate sodium AdvReac Intermediate Nausea and Verified 07/21/23 14:53 [From Fosamax] Vomiting antiemtics Allergy Severe Other Uncoded 07/21/23 14:53 Home Medications Medication Instructions Recorded Confirmed Type apremilast 30 mg tablet (Otezla) 30 mg PO BID 06/02/19 08/25/23 History aspirin 81 mg tablet,delayed 81 mg PO DAILY 06/02/19 08/25/23 History release (Adult Low Dose Aspirin) colchicine 0.6 mg capsule 0.6 mg PO BID 06/02/19 08/25/23 History meloxicam 15 mg tablet 15 mg PO DAILY 06/02/19 08/25/23 History cyanocobalamin (vitamin B-12) 1,000 mcg PO DAILY 12/06/20 08/25/23 History 1,000 mcg tablet (Vitamin B-12) topiramate 200 mg tablet 200 mg PO BID Seizures #120 tabs 02/12/22 08/25/23 Rx carbamazepine 200 mg tablet 200 mg PO BID 04/30/22 08/25/23 History cholecalciferol (vitamin D3) 50 50 mcg PO DAILY 04/30/22 08/25/23 History mcg (2,000 unit) capsule diphenhydramine HCl 25 mg capsule 50 mg PO QHS PRN Itching 11/11/22 08/25/23 History (Benadryl) tizanidine 4 mg capsule 4 mg PO TID PRN Pain 11/11/22 08/25/23 History docusate sodium 100 mg capsule 300 mg PO HS 04/10/23 08/25/23 History naltrexone 1.5 mg capsule 3 mg PO DAILY 04/10/23 08/25/23 History sennosides 8.6 mg tablet (senna) 17.2 mg PO DAILY 04/10/23 08/25/23 History pravastatin 80 mg tablet See Rx Instructions .Route 06/24/23 08/25/23 Rx .COMPLEX #90 tabs folic acid 1 mg tablet See Rx Instructions .Route 07/14/23 08/25/23 Rx .COMPLEX #90 tabs diltiazem HCl 360 mg See Rx Instructions .Route 07/28/23 08/25/23 Rx capsule,extended release 24 hr .COMPLEX #180 caps ondansetron HCl 8 mg tablet See Rx Instructions .Route 07/28/23 08/25/23 Rx .COMPLEX #90 tabs dicyclomine 10 mg capsule See Rx Instructions .Route 08/24/23 08/25/23 Rx .COMPLEX #360 caps magnesium chloride 71.5 mg 71.5 mg PO DAILY #30 tabs 08/24/23 08/25/23 Rx (magnesium chloride) tablet,delayed release (Nu-Mag) omeprazole 40 mg capsule,delayed See Rx Instructions .Route 08/24/23 08/25/23 Rx release .COMPLEX #180 caps rizatriptan 10 mg disintegrating See Rx Instructions .Route 0
[2023-08-31 09:35] VITALS: BP 119/66; PULSE 74; RESP 22; O2SAT 100
[2023-08-31 09:45] VITALS: BP 126/72; PULSE 74; RESP 20; O2SAT 100
[2023-08-31 09:55] VITALS: BP 138/89; PULSE 75; RESP 20; O2SAT 100
== END 2023-08-31 10:04 | disposition home or self-care (01) ==
PROVIDERS: PCP Internal Medicine; Visit Provider Internal Medicine Gastroenterology
PROC: 0DJD8ZZ Inspection of Lower Intestinal Tract, Via Natural or Artificial Opening Endoscopic (ICD-10-PCS; CPT 45378; principal; 2023-08-31 09:30)
DX: Z12.11 Encounter for screening for malignant neoplasm of colon (principal); I10 Essential (primary) hypertension; E78.5 Hyperlipidemia, unspecified; E55.9 Vitamin D deficiency, unspecified; F41.9 Anxiety disorder, unspecified; F32.A Depression, unspecified; K21.9 Gastro-esophageal reflux disease without esophagitis; G89.29 Other chronic pain; M54.50 Low back pain, unspecified; K57.32 Diverticulitis of large intestine without perforation or abscess without bleeding; G47.00 Insomnia, unspecified; H35.30 Unspecified macular degeneration; M81.0 Age-related osteoporosis without current pathological fracture; I73.00 Raynaud's syndrome without gangrene; M35.2 Behcet's disease; F44.89 Other dissociative and conversion disorders; M85.80 Other specified disorders of bone density and structure, unspecified site; Z79.82 Long term (current) use of aspirin; Z98.890 Other specified postprocedural states; Z87.891 Personal history of nicotine dependence; Z86.010 Personal history of colon polyps; Z86.79 Personal history of other diseases of the circulatory system; Z80.0 Family history of malignant neoplasm of digestive organs; Z82.49 Family history of ischemic heart disease and other diseases of the circulatory system
CPT/HCPCS: G0105; J2001; J2704; J7120

== ENCOUNTER 2023-10-28 13:39 | Outpatient (CLI) | payer MEDICARE, SELFPAY ==
--- NOTE | ~2023-10-28 | MR_ITS ---
EXAMINATION: MR brain/brain stem wo/w con DATE: 10/28/2023 14:43 INDICATION: Dystonia, unspecified. TECHNIQUE: Magnetic resonance imaging (MRI) of the brain and brainstem was performed without and with 12 mL MultiHance intravenous contrast. COMPARISON: None. FINDINGS: There are scattered areas of nonspecific increased T2-weighted signal intensity in the cere bral white matter, which is within normal limits for the patient's age. There is no intracranial hemo rrhage, acute infarction, or abnormal intracranial mass lesion. The ventricles are normal in size. Th e paranasal sinuses are clear. The mastoid air cells are normal. The orbits are normal. IMPRESSION: 1. Normal aging brain. Reviewed, dictated and finalized at location A. IMPRESSION: 1. Normal aging brain.
--- NOTE | ~2023-10-28 | MR_ITS ---
EXAMINATION: MR cervical spine wo/w con DATE: 10/28/2023 14:43 INDICATION: Dystonia, unspecified. Left arm weakness and shaking. TECHNIQUE: Magnetic resonance imaging (MRI) of the cervical spine was performed without and with 12 m L MultiHance intravenous contrast. COMPARISON: None FINDINGS: Bone alignment is normal. Vertebral body heights are normal. There is moderately decreased disc height at C4-C5 and C5-C6 and mildly decreased disc height at C6-C7. The spinal cord signal inte nsity is normal. The following disc levels are specifically discussed: C2-C3: The disc does not extend beyond the endplate margin. There is no uncovertebral joint osteoarth ritis. There is moderate right and severe left facet joint osteoarthritis. There is no neural foramin al stenosis. There is no central canal stenosis. C3-C4: There is a central protrusion. There is mild bilateral uncovertebral joint osteoarthritis. The re is severe bilateral facet joint osteoarthritis. There is no neural foraminal stenosis. There is no central canal stenosis. C4-C5: The disc is bulging. There is severe bilateral uncovertebral joint osteoarthritis. There is mi ld bilateral facet joint osteoarthritis. There is mild bilateral neural foraminal stenosis. There is mild central canal stenosis. C5-C6: The disc is bulging. There is severe bilateral uncovertebral joint osteoarthritis. There is mo derate bilateral facet joint osteoarthritis. There is mild bilateral neural foraminal stenosis. There is mild central canal stenosis. C6-C7: There is a central extrusion. There is moderate bilateral uncovertebral joint osteoarthritis. There is moderate right and mild left facet joint osteoarthritis. There is mild right neural foramina l stenosis. There is mild central canal stenosis. C7-T1: The disc does not extend beyond the endplate margin. There is no uncovertebral joint osteoarth ritis. There is mild right and severe left facet joint osteoarthritis. There is mild left neural fora lan stenosis. There is no central canal stenosis. IMPRESSION: 1. Severe cervical spondylosis. Reviewed, dictated and finalized at location A.
== END 2023-10-28 13:40 | disposition home or self-care (01) ==
LOC: ANHIMG 13:39
PROVIDERS: PCP Internal Medicine; Visit Provider Internal Medicine
DX: M43.02 Spondylolysis, cervical region (principal); R25.1 Tremor, unspecified; R56.9 Unspecified convulsions
CPT/HCPCS: 70553; 72156; A9577

== ENCOUNTER 2023-11-19 08:35 | Outpatient (CLI) | payer MEDICARE, SELFPAY ==
--- NOTE | 2023-11-24 11:15 | WPDNEUROLOGY ---
Neurology EEG Report General Information Date of Study: 11/19/23 TEST eeg DIAGNOSIS epilepsy, Nonepileptic. CONDITION OF RECORDING awake and drowsy EEG NUMBER 97 - 69 CLINICAL HISTORY patient reports she was diagnosed with nonepileptic seizure disorder years ago. Now having episodes of not being able to lift her left arm up over the shoulder. The arm will fall back down and start shaking. EEG DESCRIPTION Whole record consist of medium voltage 5 to 7 hertz per 2nd theta activity admixed with intermittent low-voltage 15 to 18 hertz per 2nd beta activity and superimposed by multiple muscle artifacts ,hyperventilation not done. Photic stimulation produced normal and symmetrical drive. Non paroxysmal. Nonfocal. Nonlateralizing. IMPRESSION No abnormalities noted in this tracing which is mainly done during drowsiness and without any abnormalities with the photic drive as well. Clinical correlation recommended this particular tracing neither confirms or rule rule out the possibility of seizures.
== END 2023-11-19 08:36 | disposition home or self-care (01) ==
LOC: ANHNEURO 08:36
PROVIDERS: PCP Internal Medicine; Visit Provider Internal Medicine
DX: R51.9 Headache, unspecified (principal); G89.29 Other chronic pain; G40.909 Epilepsy, unspecified, not intractable, without status epilepticus; Z86.73 Personal history of transient ischemic attack (TIA), and cerebral infarction without residual deficits
CPT/HCPCS: 95816

== ENCOUNTER 2024-01-05 12:26 | Outpatient (CLI) | payer MEDICARE, SELFPAY ==
[2024-01-05 13:18] LABS: Basophils Percent Auto 1.1 % (0.2-1.2); Eosinophils Absolute Auto 0.1 K/mm3 (0-0.3); Eosinophils Percent Auto 1.9 % (0-4.4); Hematocrit 38.2 % (37.0-47.0); Hemoglobin 11.7 g/dL (12.0-15.0); Immature Granulocyte Absolute 0.01 K/mm3 (0.00-0.031); Immature Granulocyte Percent A 0.3 % (0-0.5); Lymphocytes Percent Auto 24.5 % (18.3-44.2); Mean Corpuscular HGB Conc 30.6 g/dl (32-36); Mean Corpuscular Hemoglobin 27.6 pg (26-34); Mean Corpuscular Volume 90.1 fl (80-100); Mean Platelet Volume 10.2 fl (7.4-10.4); Monocytes Absolute Auto 0.4 K/mm3 (0.1-0.6); Monocytes Percent Auto 9.8 % (2.6-8.5); Neutrophils Absolute Auto 2.3 K/mm3 (1.3-6.7); Neutrophils Percent Auto 62.4 % (45.5-73.1); Platelet Count Result 238 k/mm3 (150-375); Red Blood Count 4.24 M/mm3 (4.2-5.4); Red Cell Distribution Width 13.9 % (11.5-14.5); White Blood Count 3.7 K/mm3 (4.5-10.0)
[2024-01-05 13:26] LABS: Appearance Urine Cloudy (Clear); Bacteria Urine None Seen /hpf; Bilirubin Urine Negative (Negative); Blood Urine Negative (Negative); Color Urine Yellow (Yellow); Glucose Urine UA Negative (Negative); Ketones Urine Negative (Negative); Leukocyte Esterase Ur Negative LEU/UL (Negative); Nitrate Urine Negative (Negative); Non Pathogenic Casts 0-2; Protein Urine Negative (Negative); RBC Urine 0-2 /hpf (0-2); Specific Grav Ur 1.015 (1.001-1.035); Squamous Epithelial Cell Urine None Seen /hpf (Few); Urobilinogen Urine 0.2 mg/dL (<2.0); WBC Urine 0-5 /hpf (0-3)
[2024-01-05 13:28] LABS: Alanine Aminotransferase 16 U/L (6-35); Albumin Level 4.7 g/dL (3.5-5.1); Alkaline Phosphatase 125 U/L (38-126); Anion Gap 11 mmol/L (4-12); Aspartate Amino Transferase 21 U/L (14-36); Bilirubin,Total 0.4 mg/dL (0.2-1.3); Blood Urea Nitrogen 12 mg/dL (7-17); Calcium 8.6 mg/dL (8.4-10.2); Carbon Dioxide 21 mmol/L (22-30); Chloride 104 mmol/L (98-107); Cholesterol 162 mg/dL (0-200); Estimated Glomerular Filt Rate > 60; Glucose 94 mg/dL (65-110); HDL Direct 109 mg/dL; Potassium 3.9 mmol/L (3.4-5.0); Sodium 136 mmol/L (137-145); Triglycerides 88 mg/dL (<150)
[2024-01-05 13:42] LABS: LDL Cholesterol Direct 48 mg/dL
[2024-01-05 13:43] LABS: Add Urine Microscopic? YES
[2024-01-05 14:00] LABS: Free T4 Free Thyroxine 0.69 ng/mL (0.78-2.19); Vitamin D 25 Hydroxy 51.8 ng/mL
[2024-01-05 19:33] LABS: Hemoglobin A1C 5.4 % (<5.7)
== END 2024-01-05 12:27 | disposition home or self-care (01) ==
PROVIDERS: PCP Internal Medicine; Visit Provider Internal Medicine
DX: E78.2 Mixed hyperlipidemia (principal); E55.9 Vitamin D deficiency, unspecified; I10 Essential (primary) hypertension; R79.89 Other specified abnormal findings of blood chemistry; Z79.899 Other long term (current) drug therapy; Z13.1 Encounter for screening for diabetes mellitus
CPT/HCPCS: 36415; 80053; 80061; 81001; 82306; 83036; 84439; 84443; 85025

== ENCOUNTER 2024-03-29 14:03 | Outpatient (CLI) | payer MEDICARE, SELFPAY ==
--- NOTE | ~2024-03-29 | CT_ITS ---
EXAMINATION: CT lung screening DATE: 03/29/2024 14:29 INDICATION: Z87.891 - Personal history of nicotine dependence TECHNIQUE: Computed tomography (CT) of the chest was performed without intravenous contrast. Addition al 3D reconstructions utilizing coronal maximum intensity projection (MIP) were performed. Automated exposure control and iterative reconstruction technique were employed. The dose-length product was 52 .87 mGy-cm. COMPARISON: 03/04/2023 FINDINGS: Calcified nodule left lung base along with calcified left hilar and mediastinal lymph nodes and scatt ered hepatic and splenic calcifications, all consistent with old granulomatous disease. Unchanged 3 m m nodule at the superior segment of the left lower lobe. There are multiple <3 mm scattered pulmonary nodules a few of which appear to represent filling defects within subsegmental bronchi. Mild atelect asis at the lingula. No pneumonia, pulmonary edema or pleural effusion. Heart size is normal. Small a mount of atherosclerotic coronary artery calcification. No pericardial effusion. No pathologically en larged thoracic lymphadenopathy. Moderate thoracic spondylosis. IMPRESSION: 1. Lung-RADS category 2: Benign appearance or behavior. Continue annual screening with noncontrast lo w-dose chest CT in 12 months. Reviewed, dictated and finalized at location B. IMPRESSION: 1. Lung-RADS category 2: Benign appearance or behavior. Continue annual screeni ng with noncontrast low-dose chest CT in 12 months.
== END 2024-03-29 14:04 | disposition home or self-care (01) ==
LOC: ANHIMG 14:09
PROVIDERS: PCP Internal Medicine; Visit Provider Internal Medicine
DX: Z12.2 Encounter for screening for malignant neoplasm of respiratory organs (principal); Z87.891 Personal history of nicotine dependence
CPT/HCPCS: 71271

== ENCOUNTER 2024-05-03 11:13 | Outpatient (CLI) | payer MEDICARE, SELFPAY ==
[2024-05-03 11:43] LABS: Basophils Percent Auto 1.1 % (0.2-1.2); Eosinophils Absolute Auto 0.1 K/mm3 (0-0.3); Eosinophils Percent Auto 3.2 % (0-4.4); Hematocrit 38.1 % (37.0-47.0); Hemoglobin 12.3 g/dL (12.0-15.0); Immature Granulocyte Absolute 0.01 K/mm3 (0.00-0.031); Immature Granulocyte Percent A 0.3 % (0-0.5); Lymphocytes Absolute Auto 0.78 K/mm3 (0.9-3.2); Lymphocytes Percent Auto 20.6 % (18.3-44.2); Mean Corpuscular HGB Conc 32.3 g/dl (32-36); Mean Corpuscular Hemoglobin 28.3 pg (26-34); Mean Corpuscular Volume 87.8 fl (80-100); Mean Platelet Volume 9.7 fl (7.4-10.4); Monocytes Absolute Auto 0.4 K/mm3 (0.1-0.6); Monocytes Percent Auto 10.6 % (2.6-8.5); Neutrophils Absolute Auto 2.4 K/mm3 (1.3-6.7); Neutrophils Percent Auto 64.2 % (45.5-73.1); Platelet Count Result 229 k/mm3 (150-375); Red Blood Count 4.34 M/mm3 (4.2-5.4); Red Cell Distribution Width 14.5 % (11.5-14.5); White Blood Count 3.8 K/mm3 (4.5-10.0)
[2024-05-03 12:03] LABS: LDL Cholesterol Direct 40 mg/dL
[2024-05-03 12:06] LABS: Alanine Aminotransferase 16 U/L (6-35); Albumin Level 4.7 g/dL (3.5-5.1); Alkaline Phosphatase 91 U/L (38-126); Anion Gap 9 mmol/L (4-12); Aspartate Amino Transferase 25 U/L (14-36); Bilirubin,Total 0.4 mg/dL (0.2-1.3); Blood Urea Nitrogen 14 mg/dL (7-17); Calcium 9.2 mg/dL (8.4-10.2); Carbon Dioxide 23 mmol/L (22-30); Chloride 103 mmol/L (98-107); Cholesterol 178 mg/dL (0-200); Estimated Glomerular Filt Rate 57; Glucose 98 mg/dL (65-110); Potassium 4.5 mmol/L (3.4-5.0); Sodium 135 mmol/L (137-145); Triglycerides 59 mg/dL (<150)
[2024-05-03 12:07] LABS: HDL Direct 114 mg/dL
[2024-05-03 12:46] LABS: Free T4 Free Thyroxine 0.82 ng/mL (0.78-2.19)
[2024-05-03 13:39] LABS: Hemoglobin A1C 5.7 % (<5.7)
== END 2024-05-03 11:14 | disposition home or self-care (01) ==
LOC: ANHLAB 11:18
PROVIDERS: PCP Internal Medicine; Visit Provider Internal Medicine
DX: E78.5 Hyperlipidemia, unspecified (principal); I10 Essential (primary) hypertension; Z13.29 Encounter for screening for other suspected endocrine disorder; Z13.1 Encounter for screening for diabetes mellitus; Z79.899 Other long term (current) drug therapy
CPT/HCPCS: 36415; 80053; 80061; 83036; 84439; 84443; 85025

== ENCOUNTER 2024-07-07 16:00 | Outpatient (CLI) | payer MEDICARE, SELFPAY ==
--- NOTE | ~2024-07-07 | CT_ITS ---
EXAMINATION: CT sinus wo con DATE: 07/07/2024 16:25 INDICATION: Chronic sinusitis, unspecified. TECHNIQUE: Computed tomography (CT) of the paranasal sinuses was performed without intravenous contra st. Iterative reconstruction technique was employed. The dose-length product was 320.10 mGy-cm. COMPARISON: Head CT 06/28/2021 FINDINGS: The frontal, ethmoid, and sphenoid sinuses are clear. There is mild mucosal thickening in t he maxillary sinuses. The ostiomeatal units are patent. There is leftward deviation of the nasal sept um. IMPRESSION: 1. Mild mucosal thickening in the maxillary sinuses. 2. Leftward deviation of the nasal septum. Reviewed, dictated and finalized at location A. EL [employer]DINARY SEAMAN
== END 2024-07-07 16:01 | disposition home or self-care (01) ==
LOC: ANHIMG 16:03
PROVIDERS: PCP Internal Medicine; Visit Provider Internal Medicine
DX: J32.0 Chronic maxillary sinusitis (principal); J34.2 Deviated nasal septum; H92.09 Otalgia, unspecified ear
CPT/HCPCS: 70486

== ENCOUNTER 2024-09-19 13:43 | Outpatient (CLI) | payer MEDICARE, SELFPAY | END 2024-09-19 13:44 | disposition home or self-care (01) | LOC: GOSHIMG 13:45 | PROVIDERS: PCP Internal Medicine; Visit Provider Internal Medicine | DX: R91.1 Solitary pulmonary nodule (principal) | CPT/HCPCS: 71250 ==

== ENCOUNTER 2024-10-11 11:35 | Outpatient (CLI) | payer MEDICARE, SELFPAY ==
[2024-10-11 12:23] LABS: Eosinophils Absolute Auto 0.1 K/mm3 (0-0.3); Eosinophils Percent Auto 4.2 % (0-4.4); Hematocrit 37.3 % (37.0-47.0); Hemoglobin 11.6 g/dL (12.0-15.0); Immature Granulocyte Absolute 0.01 K/mm3 (0.00-0.031); Immature Granulocyte Percent A 0.3 % (0-0.5); Lymphocytes Absolute Auto 0.81 K/mm3 (0.9-3.2); Lymphocytes Percent Auto 28.3 % (18.3-44.2); Mean Corpuscular HGB Conc 31.1 g/dl (32-36); Mean Corpuscular Hemoglobin 27.6 pg (26-34); Mean Corpuscular Volume 88.6 fl (80-100); Mean Platelet Volume 9.8 fl (7.4-10.4); Monocytes Absolute Auto 0.4 K/mm3 (0.1-0.6); Monocytes Percent Auto 12.6 % (2.6-8.5); Neutrophils Absolute Auto 1.5 K/mm3 (1.3-6.7); Neutrophils Percent Auto 53.6 % (45.5-73.1); Platelet Count Result 250 k/mm3 (150-375); Red Blood Count 4.21 M/mm3 (4.2-5.4); Red Cell Distribution Width 14.2 % (11.5-14.5); White Blood Count 2.9 K/mm3 (4.5-10.0)
[2024-10-11 12:30] LABS: Add Urine Microscopic? YES; Appearance Urine Turbid (Clear); Bacteria Urine 4+ /hpf; Bilirubin Urine Negative (Negative); Blood Urine Negative (Negative); Color Urine Yellow (Yellow); Glucose Urine UA Negative (Negative); Ketones Urine Negative (Negative); Leukocyte Esterase Ur 1+ LEU/UL (Negative); Nitrate Urine Negative (Negative); Non Pathogenic Casts 0-2; Protein Urine Negative (Negative); RBC Urine 0-2 /hpf (0-2); Specific Grav Ur 1.018 (1.001-1.035); Squamous Epithelial Cell Urine None Seen /hpf (Few); Urobilinogen Urine 0.2 mg/dL (<2.0)
[2024-10-11 12:34] LABS: Alanine Aminotransferase 17 U/L (6-35); Albumin Level 4.8 g/dL (3.5-5.1); Alkaline Phosphatase 94 U/L (38-126); Anion Gap 9 mmol/L (4-12); Aspartate Amino Transferase 20 U/L (14-36); Bilirubin,Total 0.4 mg/dL (0.2-1.3); Blood Urea Nitrogen 17 mg/dL (7-17); Carbon Dioxide 22 mmol/L (22-30); Chloride 104 mmol/L (98-107); Cholesterol 167 mg/dL (0-200); Estimated Glomerular Filt Rate 55; Glucose 88 mg/dL (65-110); Potassium 4.3 mmol/L (3.4-5.0); Sodium 135 mmol/L (137-145); Triglycerides 47 mg/dL (<150)
[2024-10-11 12:37] LABS: CRP < 0.5 mg/dL (<1.0)
[2024-10-11 12:58] LABS: HDL Direct 118 mg/dL
[2024-10-11 13:17] LABS: Free T4 Free Thyroxine 0.73 ng/dL (0.78-2.19)
[2024-10-11 13:22] LABS: LDL Cholesterol Direct 32 mg/dL
[2024-10-11 13:33] LABS: Hepatitis B Surface Antigen Negative (Negative)
[2024-10-11 13:44] LABS: Hemoglobin A1C 5.5 % (<5.7)
[2024-10-11 13:50] LABS: Hepatitis C Virus Antibody Negative (Negative)
--- OUTSIDE RECORDS SUMMARY | 2024-10-11 13:53 | XMS_ITS | Clinical Summary ---
Author Organization [facility] Address [address] [place] [address] Care Team Providers Care Human Resource Adviser Name Role Phone Jacky Lee MD Primary Care Provider [phone] Allergies Active Allergy Reactions Criticality Noted Date Comments Adhesive Rash Medium 07/31/2010 Butorphanol Anaphylaxis High Certolizumab Pegol Urticaria Medium 08/23/2015 Gentamicin Infliximab Fever Medium Nitrofurantoin Monohyd/M-Cryst Urticaria Medium 02/15/2021 Meperidine Nausea & Vomiting Low Methocarbamol Urticaria,Nausea & Vomiting Medium Moxifloxacin Vomiting Low Nitrofurantoin Other (See comments),Urticaria Medium 10/11/2018 Welts Other Dystonia High 02/15/2021 Antiemetics Penicillins Promethazine Dystonia High 02/15/2021 Prochlorperazine Dystonia High Solifenacin Other (See comments),Palpitation s Low 02/19/2011 Palpations Palpations Palpations Also reacted to Toviaz Sulfamethoxazole-Trimetho prim Urticaria Medium 10/11/2018 Fesoterodine Palpitations Low 02/15/2021 Triamcinolone Medications tiZANidine (ZANAFLEX) 2 mg tablet TK 1 T PO QID PRN 06/19/20 20 Active pravastatin (PRAVACHOL) 80 mg tablet Take 1 tablet (80 mg total) by mouth daily 06/25/20 20 Active ondansetron (ZOFRAN) 8 mg tablet 07/02/20 20 Active omeprazole (PriLOSEC) 40 mg capsule TK 1 C PO BID 05/22/20 20 Active meloxicam (MOBIC) 15 mg tablet TK 1 T PO QD 05/24/20 20 Active folic acid (FOLVITE) 1 mg tablet TK 1 T PO DAILY 05/24/20 20 Active ergocalciferol (VITAMIN D) 50,000 unit capsule TK 1 C PO WEEKLY 05/24/20 20 Active dicyclomine (BENTYL) 10 mg capsule TK ONE C PO QID 05/21/20 20 Active colchicine (COLCRYS) 0.6 mg tablet TK 1 T PO BID 06/19/20 20 Active apremilast 30 mg tablet Take 1 tablet (30 mg total) by mouth 2 (two) times a day 04/04/20 20 Active diltiaZEM CD (CARDIZEM CD) 360 mg 24 hr capsule Take 1 capsule (360 mg total) by mouth daily 02/08/20 21 Active docusate sodium 100 mg/5 mL enema Ac tive Slow-Mag 71.5 mg tablet,delayed release (DR/EC) Take 1 tablet by mouth daily 12/14/19 21 Active senna-docusate (PERICOLACE) 8.6-50 mg Active aspirin 81 mg enteric coated tablet Take 1 tablet (81 mg total) by mouth daily Active diphenhydrAMINE (BENADRYL) 25 mg capsule Take 1 tablet/capsule (25 mg total) by mouth every 6 (six) hours as needed for itching Active naltrexone HCl (NALTREXONE ORAL) Take by mouth Active cyanocobalamin, vitamin B-12, (VITAMIN B-12 ORAL) Take by mouth Active tiZANidine (ZANAFLEX) 4 mg tablet 09/21/19 24 Active azelastine (ASTELIN) 137 mcg (0.1 %) nasal spray INHALE 1 SPRAY INTRANASALLY TO BOTH NOSTRILS EVERY 12 HOURS 10/20/19 24 Active rizatriptan FORKLIFT OPERATOR (MAXALT-FORKLIFT OPERATOR) 10 mg disintegrating tabletIndications: Migraine without aura and without status migrainosus, not intractable Take 1 tablet (10 mg total) by mouth as needed for migraine May repeat in 2 hours if unresolved. Do not exceed 30 mg in 24 hours. 9 tablet 11 11/16/19 24 025 Active carBAMazepine (TEGretol) 200 mg tabletIndications: Partial symptomatic epilepsy with complex partial seizures, intractable, without status epilepticus (HCC) TAKE 1 TABLET(200 MG) BY MOUTH TWICE DAILY 180 tablet 07/01/20 24 Active topiramate (TOPAMAX) 200 mg tabletIndications: Migraine without aura and without status migrainosus, not intractable TAKE 1 TABLET(200 MG) BY MOUTH TWICE DAILY 180 tablet 3 08/11/19 25 Active cholecalciferol, vitamin D3, 1,000 unit tablet,chewable Take by mouth Active Active Problems Problem Noted Date Diagnosed Date Sensation of fullness in both ears 08/22/2024 Assessment & Plan (08/22/2024 7:22 PM SULFONATOR OPERATOR): Both ears have a normal exam. She also has a normal hearing test. I talked with her about this. I would like to get her off of the decongestant nasal spray before doing any further assessment. 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 She is edentulous posteriorly and this seems to be partially due to her dry mouth an autoimmune disorder. She could consider seeing her dentist about getting a partial and that might help. She understands. Tinnitus of left ear 08/22/2024 Assessment & Plan (08/22/2024 7:23 PM SULFONATOR OPERATOR): She does have normal hearing test and I reviewed that with her. The tinnitus could be secondary to TMJ disorder and I explained that also. She also has a significant history of cervical spondylitis and that can cause some of the symptoms. If she continues with symptoms would consider further evaluation or possibly an otology referral. Nasal congestion 08/22/2024 Assessment & Plan (08/22/2024 7:24 PM SULFONATOR OPERATOR): She has been using Afrin nasal spray pretty regularly. I recommended that she discontinue that as it is likely causing a lot of nasal congestion. I discussed possibly taking a steroid pack which can help with the weaning process but she really did not want to pursue that. She will discontinue the Afrin spray. It is also possible that her deviated nasal septum could be causing some of the symptoms. If she continues to have issues with this I have asked her to follow up with me. Partial symptomatic epilepsy with complex partial seizures, intractable, without status epilepticus 02/15/2021 Migraine without aura and wi thout status migrainosus, not intractable 02/15/2021 Assessment & Plan (08/22/2024 7:33 PM SULFONATOR OPERATOR): This could be responsible for the periods of tinnitus vertigo that she suffers. I am recommending observation from my standpoint. Assessment & Plan (02/15/2021 2:59 PM CDT): Patient's history of migraine without aura treated with topiramate for migraine prophylaxis and rizatriptan for abortive breakthrough. This regimen seems to work well and is well tolerated. She is not in need of renewal of rizatriptan but is in need of per topiramate renewal. I have renewed her topiramate 200 mg b.i.d.. She will follow-up in neurology clinic in a year. Psychogenic nonepileptic seizure 02/15/2021 Assessment & Plan (02/15/2021 2:57 PM CDT): Patient's former patient of Dr. Bull. Patient reports a history of nonepileptic seizures. Prior medical records from Dr. Bull have been requested for review. Subclavian artery stenosis 07/05/2020 Assessment & Plan (07/05/2020 10:02 AM SULFONATOR OPERATOR): Patient has very mild non flow-limiting stenosis left subclavian artery. Noninvasive arterial studies and CT a are essentially normal. Her symptoms do not correlate with left subclavian stenosis and or subclavian steal. From my standpoint no need for further vascular workup. Follow-up with me on a p.r.n. basis. Tachycardia 07/05/2020 Assessment & Plan (07/05/2020 10:04 AM SULFONATOR OPERATOR): Patient has intermittent tachycardia. Recent Holter monitor and echocardiogram per patient were normal. I feel comfortable that her mild asymptomatic stenosis of the left subclavian artery is not related. 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 Arthralgia of shoulder 01/09/2012 Dystonia Assessment & Plan (02/15/2021 2:58 PM CDT): Patient has self-reported history of dystonia of the limbs occurring episodically. Apparently there is a family history of dystonia as well. She has been using carbamazepine to control the dystonia successfully at 200 mg t.i.d.. Her carbamazepine has been renewed in addition to obtaining carbamazepine level, CBC, and electrolytes for screening of medication level, and surveillance of potential neutropenia and hyponatremia associated with continued carbamazepine dosing. Patient will follow-up in neurology clinic in a year. Encounters Date Type Department Care Team Description 08/17/2024 3:30 PM SULFONATOR OPERATOR Office Visit [facility] Otolaryngology [address] [place] [address] [phone] Juancarlos White MD Sensation of fullness in both ears (Primary Dx); Tinnitus of left ear; Nasal congestion; Migraine without aura and without status migrainosus, not intractable 08/17/2024 3:00 PM SULFONATOR OPERATOR Procedure visit [facility] Otolaryngology [address] [place] [address] [phone] Silva Keenan Tinnitus of left ear (Primary Dx); Dysfunction of both eustachian tubes from Last 3 Months Immunizations Immunization Administration Dates Next Due Flucelvax Influenza Quad 05/06/2020,05/06/2018 Influenza, Quadrivalent, Split, Intramuscular Influenza, Unspecified 08/05/2013,04/05/2012 Pneumococcal, Unspecified 04/05/2012 Surgical History Surgery Date Site/Laterality Comments KNEE SURGERY Knee surgery HYSTERECTOMY Hysterectomy TONSILLECTOMY CARPAL TUNNEL RELEASE ENDOMETRIAL ABLATION SHOULDER SURGERY CERVICAL CONE BIOPSY Medical History Medical History Date Comments Hx Other Medical Behcet Syndrome Hx Other Medical paroxysmal dysk inesia Hx Other Medical Headache, migra ine Hx Other Medical recurrent UTI Hx Other Medical iritis Hx Other Medical uveitis Hx Other Medical frequent UTI Hx Other Medical multiple nerve entrapments in left arm Hx Other Medical GI tract ulcers Hx Other Medical concussion HTN (hypertension) Depression Diverticulitis GERD (gastroesophageal reflux disease) Hyperlipidemia Pancolitis (HCC) Seizures (HCC) Vitamin D deficiency Peripheral neuropathy TIA (transient ischemic attack) Tachycardia Dystonia Autoimmune disease Stroke (HCC) Ear problems Sinusitis Family History Medical History Relation Name Comments Gout Brother COPD Father Heart failure Father Other Father restless leg sy ndrome; Parkinsonism Father Rheum arthritis Father Heart disease Maternal Grandfather Cancer Mother Hypertension Mother Kidney disease Mother Lung cancer Mother Heart disease Paternal Grandfather Cancer Paternal Grandmother Relation Name Status Comments Brother Alive Father Alive Maternal Grandfather Mother Paternal Grandfather Paternal Grandmother Social History Tobacco Use Types Packs/Day Years Used Date Smoking Tobacco: Former Cigarettes Smokeless Tobacco: Never Tobacco Cessation:Counseling Given: Not Answered Comments Unknown Sex and Gender Information Value Date Recorded Sex Assigned at Not on file Legal Sex Female 2:46 PM SULFONATOR OPERATOR Gender Identity Not on file Sexual Orientation Not on file Obstetrics History Last Filed Vital Signs Vital Sign Reading Time Taken Comments Blood Pressure 140/62 09/24/2023 1:13 PM SULFONATOR OPERATOR Pulse 85 09/24/2023 1:13 PM SULFONATOR OPERATOR Temperature 36 C (96.8 F) 10/17/2022 1:19 PM CDT Respiratory Rate 18 08/17/2024 3:45 PM SULFONATOR OPERATOR Oxygen Saturation 99% 10/17/2022 1:19 PM CDT Inhaled Oxygen Concentration - - Weight 63.5 kg (140 lb) 08/17/2024 3:45 PM SULFONATOR OPERATOR Height 170.2 cm (5' 7 ) 08/17/2024 3:45 PM SULFONATOR OPERATOR Body Mass Index 21.93 08/17/2024 3:45 PM SULFONATOR OPERATOR Plan of Treatment Health Maintenance Due Date Last Done Comments Breast Cancer Screening-Mammogram 1965 Colon Cancer Screening-Colonoscopy 1965 Depression Screening 1965 Hepatitis C Screening 1965 DTaP/Tdap/Td Vaccine (1 - Tdap) 10/24/1974 Hepatitis B Screening 10/24/1981 Regular Well Visit/Exam 18-64 10/24/1981 Zoster Vaccine (1 of 2) 10/24/2013 Influenza Vaccine (#1) 2024 0, 04/12/2019, 05/06/2018, Additional history exists Pneumococcal vaccine <65 Aged Out 04/05/2012 No longer eligible based on patient's age to complete this topic Insurance MEDICARE [facility] MEDICARE [facility]ICARE [facility] Care Teams Human Resource Adviser Relationship Specialty Start Date End Date Jacky Lee MD [address] [place] [address] PCP - General 06/20/13
--- OUTSIDE RECORDS SUMMARY | 2024-10-11 13:53 | XMS_ITS | Encounter Summary ---
Author Organization [facility] Address [address] [facility] [place] [address] Care Team Providers Care Curtain Stretcher Name Role Phone Jacky Lee MD Primary Care Provider [phone] Reason for Visit * Reason Comments Follow-up BECHETS Encounter Details Date Type Department Care Team (Late st Contact Info) Description 10/10/2024 1:20 PM CDT Office Visit [facility] - Rheumatology [address] [place] [address], [facility] [place] [address] Ahsan Hdz MD [address] [place] [address] [place] [address] Behcet's disease (Primary Dx); Encounter for long-term (current) use of medications; Need for hepatitis B screening test Social History Tobacco Use Types Packs/Day Years Used Date Smoking Tobacco: Former Cigarettes 0.3 20 Smokeless Tobacco: Never Tobacco Cessation:Counseling Given: Not Answered Alcohol Use Standard Drinks/Week Comments No 0 (1 standard drink = 0.6 oz pur e alcohol) PHQ-2 Answer Date Recorded PHQ2 TOTAL SCORE 0 10/15/2021 Sex and Gender Information Value Date Recorded Sex Assigned at Not on file Gender Identity Not on file Sexual Orientation Not on file documented as of this encounter Last Filed Vital Signs Vital Sign Reading Time Taken Comments Blood Pressure 116/68 10/10/2024 1:08 PM CDT Pulse 69 10/10/2024 1:08 PM CDT Temperature 36 C (96.8 F) 10/10/2024 1:08 PM CDT Respiratory Rate - - Oxygen Saturation - - Inhaled Oxygen Concentration - - Weight 64.5 kg (142 lb 4.8 oz) 10/10/2024 1:08 P M CDT Height 170.2 cm (5' 7 ) 10/10/2024 1:08 PM CDT Body Mass Index 22.29 10/10/2024 1:08 PM CDT documented in this encounter Progress Notes * Ahsan Hdz MD - 10/10/2024 1:40 PM CDT (Prob #1) Behcet's (HLAB51 +/HLAB27 -) (Prob #2) OAhands/Knees/Feet (Prob #3) Migraine HAs/Post 2 CVAs/Multiple Comorbidities (Labs) Recent Labs Component Name 09/28/23 1607 10/31/22 1041 06/02/22 1329 09/23/21 1434 11/26/20 1530 05/17/20 1229 11/03/18 1448 03/23/18 1551 11/25/17 1310 06/22/17 1424 WBC 4.9 3.6* 5.5 4.8 4.5 4.5 - 4.3 - 3.3* RBC 4.38 4.37 4.66 4.64 4.29 4.38 - 4.41 - 4.61 HGB 12.4 12.9 13.7 13.5 12.4 13.8 - 14.2 - 14.8 HCT 38.7 39.1 41.8 40.9 39.3 41.0 - 41.1 - 42.9 MCV 88.4 89.5 89.7 88.1 91.6 93.6 - 93.2 - 93.1 MCHC 32.0 33.0 32.8 33.0 31.6* 33.7 - 34.5 - 34.5 PLTCOUNT 270 244 271 261 281 314 - 243 - - NEUTPCT - - - - 65.2 - - 63.5 - 53.9 LYMPHPCT - 25.8 - 26.5 - 29.2 - - - - EOSINPCT - 2.0 - 1.5 - 2.0 - - - - BASOPHILPCT - 1.1 - 0.8 - 1.1 - - - - NEUTABS - - - - 2.9 - - 2.8 - 1,779 - = values in this interval not displayed. ESR 1; CRP <0.5 UA WNL; Recent Labs Component Name 09/28/23 1607 10/31/22 1041 06/02/22 1329 09/23/21 1434 11/26/20 1530 05/17/20 1229 06/23/19 1543 11/03/18 1448 03/23/18 1551 SODIUM - 136 134* 135 - 133* 136 - - NA 137 - - - 138 - - - 135* POTASSIUM 4.9* 4.3 4.0 4.9 4.2 4.4 4.3 - 4.0 CHLORIDE - 105 103 103 - 101 105 - - CO2 24 21 22 27 20* 25 23 - 23 BUN 13 15 12 11 14 10 13 - 13 CREATININE 0.80 0.97 0.86 0.92 0.9 0.80 0.95 - 1.0 GLUCOSE 98 85 83 93 90 96 87 - 89 CALCIUM 9.3 9.3 9.1 9.1 8.5 9.2 9.3 - 9.3 ALT 12 13 13 13 15 9 10 - 13 ALKPHOS 128 93 115 102 115 97 96 - 111 AST 14 14 15 15 17 12 15 - 16 TBIL - 0.4 0.4 0.3 - 0.3 0.4 - - TPROT - 6.5 6.6 6.8 - 6.6 6.6 - - EGFR 85* - - 69 >60 82 67 - 58* EGFRAFR - - - 80 - 96 78 - - ALBUMIN - 4.6 4.8 4.8 - 4.6 4.7 - - - = values in this interval not displayed. CK 72/Aldolase 2.6 ANCAS negative (Subj) Patient has not been seen for over one year. Cancelled last 2 appointments. Patient remains on 30 mg Apremilast bid, 0.6 mg Colchicine/15 mg Meloxicam/d+ other meds. One oral ulcer large in nature, but resolved. No nasal/vaginal ulcers. Mild bladder irritation.Will FU with Urology. Labs sam cleaning for Dr. Lee. Had temps in July. Occasional red patches on face, but resolved. No systemiccomplaints except pain in abdomen and LE after urinate. Some LBP. Will FU with ENT/Neurologist. Some tinnitus and ear fullness. No nose bleeds. Some treatment for congestion not working. Sinus scan showed deviated septum. Ophthalmology monitoring for macular and retinal problems with Dr. Peters. Neuology following HAS and seizures. Past/Social/Family History reviewed, (Obj) BP 116/68 (BP Location: Left arm, Patient Position: Sitting, BP Cuff Size: Adult) Pulse 69 Temp 96.8 ??F (36 ??C) (Skin) Ht 1.702 m (5' 7 ) Wt 64.5 kg (142 lb 4.8 oz) (Skin) No rashes or eruptions (HEENT) No mucosal ulcers today. No friable mucosa. Moist membranes. No sinus tenderness. Mild tenderness ears/ (Nec/Back) No tracheal tenderness. No adenopathy/thyromegaly (Chest) NBS with no r.r,w, or etoa changes. (Heart) RR with no m,r, or g; (Extrem) HNs DIPs/BNs PIps/CARE HOME prominence. No taurus synovitis. T1 ankles. MS= bilat (Assess) Behcet's clinically stable (Plan) Continue same meds with labs now and q 6 months and yearly TB/Hep screening. Close FU wuith Dr. Lee/Ophthalmology/ENT/Neurology. Discussed with patient. RTO in 6 months. Ahsan Hdz MD, FACP, FAAP, MACR Metal Products Fabricator Assembler and Pediatric Rheumatology Professor of Internal Medicine,Pediatrics, and Molecular Immunology [facility] documented in this encounter Plan of Treatment Upcoming Encounters Date Type Department Care Team (Late st Contact Info) Description 10/17/2024 1:00 PM CDT Office Visit [facility] - Ophthalmology [address] [place] [phone] Ese Peters MD [address] [place] [address] DEPT [place] [address] 12/29/2024 11:00 AM CDT Office Visit [facility] - Ophthalmology [address] [place] [address], [place] [address] Pravin Bates MD [address] [place] [address] DEPT [place] [address] 04/10/2025 1:20 PM CDT [facility] [address] [place] [address], [place] [address] Ahsan Hdz MD [address] [place] [address] [place] [address] Scheduled Orders Name Type Priority Associated Diagnoses Orde r Schedule CBC WITH DIFFERENTIAL Lab Routine Behcet's disease Encounter for long-term (current) use of medications Ordered: 10/10/2024 COMPREHENSIVE METABOLIC PANEL Lab Routine Behcet's disease Encounter for long-term (current) use of medications Ordered: 10/10/2024 C-REACTIVE PROTEIN Lab Routine Behcet's disease Encounter for long-term (current) use of medications Ordered: 10/10/2024 ERYTHROCYTE SEDIMENTATION RATE Lab Routine Behcet's disease Encounter for long-term (current) use of medications Ordered: 10/10/2024 URINALYSIS W/MICROSCOPIC REFLEX TO CULTURE Lab Routine Behcet's disease Encounter for long-term (current) use of medications Ordered: 10/10/2024 HEPATITIS B CORE ANTIBODY TOTAL Lab Routine Behcet's disease Encounter for long-term (current) use of medications Need for hepatitis B screening test Ordered: 10/10/2024 HEPATITIS B SURFACE ANTIGEN W RFLX CONFIRMATION Lab Routine Behcet's disease Encounter for long-term (current) use of medications Need for hepatitis B screening test Ordered: 10/10/2024 HEPATITIS C ANTIBODY Lab Routine Behcet's disease Encounter for long-term (current) use of medications Ordered: 10/10/2024 QUANTIFERON TB-GOLD Lab Routine Behcet's disease Encounter for long-term (current) use of medications Ordered: 10/10/2024 documented as of this encounter Visit Diagnoses Diagnosis Behcet's disease (HCC)- Primary Behcet's syndrome Encounter for long-term (current) use of medications Encounter for long-term (current) use of other medications Need for hepatitis B screening test documented in this encounter Care Teams Curtain Stretcher Relationship Specialty Start Date End Date Jacky Lee MD [address] [facility] [address] [facility] [address] [place] [address] PCP - General Internal Medicine 06/10/19 documented as of this encounter
--- OUTSIDE RECORDS SUMMARY | 2024-10-11 13:53 | XMS_ITS | Encounter Summary ---
Author Organization [facility] Address [address] [facility] [place] [address] Care Team Providers Care Biofuels Production Technician Name Role Phone Jacky Lee MD Primary Care Provider [phone] Reason for Visit * Reason Onset Date Comments MEDICATION REFILL 08/22/2020 Encounter Details Date Type Department Care Team (Late st Contact Info) Description 08/22/2020 Refill [facility] [address] [place] [address], [place] [address] Ahsan Hdz MD [address] [place] [address] [place] [address] MEDICATION REFILL Social History Tobacco Use Types Packs/Day Years Used Date Smoking Tobacco: Former Cigarettes 0.3 20 Smokeless Tobacco: Never Alcohol Use Standard Drinks/Week Comments No 0 (1 standard drink = 0.6 oz pur e alcohol) Sex and Gender Information Value Date Recorded Sex Assigned at Not on file Gender Identity Not on file Sexual Orientation Not on file documented as of this encounter Miscellaneous Notes * Telephone Encounter - Jarad [place] - 08/22/2020 9:15 AM CST Refill Request Ruth Aguayo JESSENIA:05/15/20 NOV scheduled: 09/18/2020 LRF:08/05/18 Qty Disp:4 # of refills:0 Allergies: Allergies Allergen Reactions ??? Butorphanol Anaphylaxis ??? Promethazine Other sever dystonia ??? Macrobid [Nitrofurantoin] Urticaria and Other Welts ??? Gentamicin Urticaria ??? Meperidine Nausea and/or Vomiting ??? Moxifloxacin Nausea and/or Vomiting ??? Prochlorperazine SERVICE OPERATOR Dysfunction Nothing for nausea except zofran ??? Bactrim [Sulfamethoxazole W-Trimethoprim] Urticaria ??? Methocarbamol Other ??? Cimzia [Certolizumab Pegol] Urticaria ??? Quinolones Urticaria ??? Remicade [Infliximab] Other and Fever Contraindicated ??? Robaxin [Methocarbamol] Urticaria ??? Solifenacin Succinate Palpitations Also reacted to Toviaz ??? Adhesive Sensitivity Rash ??? Tegaderm Hydrogel Wound Other Redness/ itching ??? Vesicare [Solifenacin] Other Palpations Palpations Palpations Pended Medication Order: Requested Prescriptions Pending Prescriptions Disp Refills ??? vitamin D, ergocalciferol, (DRISDOL) 1.25 MG (00230 UT) capsule 4 capsule 0 Sig: TAKE 1 CAPSULE BY MOUTH ONCE WEEKLY DIRECTED TELEPHONIC documented in this encounter Plan of Treatment Upcoming Encounters Date Type Department Care Team (Late st Contact Info) Description 10/17/2024 1:00 PM CDT Office Visit [facility] - Ophthalmology [address] [place] [phone] Ese Peters MD [address] [place] [address] DEPT [place] [phone] 12/29/2024 11:00 AM CDT Office Visit [facility] - Ophthalmology [address] [place] [phone] Pravin Bates MD [address] [place] [address] DEPT [place] [phone] 04/10/2025 1:20 PM CDT Office Visit [facility] - Rheumatology [address] [place] [address], [place] [phone] Ahsan Hdz MD [address] [place] [address] [place] [address] documented as of this encounter Visit Diagnoses Not on filedocumented in this encounter Care Teams Biofuels Production Technician Relationship Specialty Start Date End Date Jacky Lee MD [address] [facility] [address] [place] [phone] PCP - General Internal Medicine 06/10/19 documented as of this encounter
--- OUTSIDE RECORDS SUMMARY | 2024-10-11 13:53 | XMS_ITS | Encounter Summary ---
Author Organization [facility] Address [address] [place] [address] Care Team Providers Care Director Ehs Name Role Phone Jacky Lee MD Primary Care Provider [phone] Jacky Lee MD Primary Care Provider [phone] Reason for Visit * Reason Onset Date Comments MEDICATION REFILL 09/21/2018 Encounter Details Date Type Department Care Team (Late Contact Info) Description 09/21/2018 Refill [facility] - Rheumatology [address] [place] [address] Ahsan Hdz MD [address] [place] [address] [place] [address] MEDICATION REFILL Social History Tobacco [...] on file documented as of this encounter Plan of Treatment Upcoming Encounters Date Type Department Care Team (Late Contact Info) Description 10/17/2024 1:00 PM CDT Office Visit [facility] - Ophthalmology [address] [place] [phone] Ese Peters MD [facility] [facility] [place]PT [place] [phone] 12/29/2024 11:00 AM CDT Office Visit [facility] - Ophthalmology [address] [place] [address], [place] [phone] Pravin Bates MD [facility] [facility] [place]PT [place] [phone] 04/10/2025 1:20 PM CDT Office Visit [facility] - Rheumatology [address] [place] [phone] Ahsan Hdz MD [address] [place] [address] [place] [phone] documented as of this encounter Visit Diagnoses Not on filedocumented in this encounter Care Teams Director Ehs Relationship Specialty Start Date End Date Jacky Lee MD [address] [place] [phone] PCP - General 11/11/07 06/09/19 Jacky Lee MD [address] [facility] [address] [facility] [address] [place] [phone] PCP - General Internal Medicine 06/10/19 documented as of this encounter
--- OUTSIDE RECORDS SUMMARY | 2024-10-11 13:53 | XMS_ITS | Encounter Summary ---
Author Organization [facility] Address [address] [facility] [place] [address] Care Team Providers Care It Auditor Name Role Phone Jacky Lee MD Primary Care Provider [phone] Encounter Details Date Type Department Care Team (Latest Contact Info) Description 10/10/2024 Travel Social History Tobacco Use Types Packs/Day Years [...] Office Visit [facility] - Ophthalmology [address] [place] [phone] Ese Peters MD [address] [place] [address] [place] [phone] 12/29/2024 11:00 AM CDT [facility] [address] [place] [phone] Pravin Bates MD [address] [place] [address] [place] [address] 04/10/2025 1:20 PM CDT Office Visit [facility] - Rheumatology [address] [place] [address], [place] [address] Ahsan Hdz MD [address] [place] [address] [address] [place] [address] documented as of this encounter Visit Diagnoses Not on filedocumented in this encounter Care Teams It Auditor Relationship Specialty Start Date End Date Jacky Lee MD [address] [place] [address] PCP - General Internal Medicine 06/10/19 documented as of this encounter
--- OUTSIDE RECORDS SUMMARY | 2024-10-11 13:53 | XMS_ITS | Clinical Summary ---
Author Organization [facility] [place] Address [address] [place] [address] Care Team Providers Care Extrusion Die Repair Manager Name Role Phone Jacky Lee MD Primary Care Provider [phone] Source Comments [facility],non-owned Affiliates and Associated Physician Practices is amultiple site organization consisting of ambulatory clinics and hospital sitesin [place], [place], [place] and [place]. This disclosure is being madepursuant to the Care Everywhere program and may not contain all information available regarding this patient. Last updated 18.[facility] [place] Allergies Active Allergy Reactions Criticality Noted Date Comments Adhesive Sensitivity Rash Low 07/31/2010 Sulfamethoxazole W-Trimethoprim Urticaria Medium 10/11/2018 Butorphanol Anaphylaxis High 07/30/2010 Certolizumab Pegol Urticaria 08/23/2015 Gentamicin Urticaria 07/30/2010 Nitrofurantoin Urticaria,Other Medium 10/11/2018 Welts Meperidine Nausea and/or Vomiting 07/30/2010 Methocarbamol Other Medium 06/16/2016 Moxifloxacin Nausea and/or Vomiting 07/30/2010 Prochlorperazine JUDGE'S CLERK Dysfunction 07/30/2010 Nothing for nausea except zofran Promethazine Other High 11/17/2013 sever dystonia Quinolones Urticaria 08/23/2015 Infliximab Other,Fever 08/23/2015 Contraindicated Methocarbamol Urticaria 08/23/2015 Solifenacin Succinate Palpitations 02/19/2011 Also reacted to Toviaz Tegaderm Hydrogel Wound Other Low 12/04/2016 Redness/ itching Solifenacin Other Low 08/23/2015 Palpations Palpations Palpations Medications * Be aware that medications may not be up to date on this document. Alwaysverify current medications with the patient. Medication Sig Dispensed Refills Start Date End Date Status ondansetron (ZOFRAN) 8 MG tablet Take 1 (one) tablet by mouth every 8 hours as needed Active aspirin EC (ECOTRIN) 81 MG tablet Take 1 (one) tablet by mouth once daily Active diphenhydrAMINE (BENADRYL) 50 MG capsuleIndications: Pruritus Take 1 (one) capsule by mouth at bedtime Reasons: Itching Active omeprazole (PRILOSEC) 40 MG capsule Take 1 (one) capsule by mouth 2 times daily, before breakfast and supper Active folic acid (FOLVITE) 1 MG tablet Take 1 (one) tablet by mouth once daily 05/12/2019 Active dicyclomine (BENTYL) 10 MG capsule Take 1 (one) capsule by mouth 3 times daily as needed 06/02/2019 Active carBAMazepine (TEGRETOL) 200 MG tablet Take 1 (one) tablet by mouth 3 times daily 04/01/2019 Active magnesium Cl-Calcium Carbonate (Slow-Mag) 71.5 mg9 MG tablet Take 1 (one) tablet by mouth once daily Active Apremilast (OTEZLA) 30 MGIndications:Behce t's disease (HCC) Take 1 tablet by mouth 2 times daily 180 tablet 3 04/04/2020 Active topiramate (TOPAMAX) 200 MG tablet TK 1 T PO TID 12/20/2019 Active naltrexone 3 mg/ml compd solution Take 1 mL by mouth once daily Active dilTIAZem coated beads 24hr (CARDIZEM CD) 360 MG capsule Take 1 (one) capsule by mouth once daily 11/12/2020 Active tiZANidine (Zanaflex) 4 MG tablet Take 1 (one) tablet by mouth every 8 hours as needed 12/04/2021 Active rizatriptan, disintegrating, (Maxalt ALPINE GUIDE) 10 MG tablet Take 1 (one) tablet by mouth as directed 12/23/2021 Active pravastatin (Pravachol) 80 MG tablet Take 1 (one) tablet by mouth once daily 09/21/2023 Active polyethylene glycol 3350 (Miralax) 17 GM/SCOOP powder Take 17 (seventeen) g by mouth once daily Active azelastine (Astelin) 0.1 % nasal spray [place] 1 (one) spray into each nostril once daily Active colchicine 0.6 MG tabletIndications:B ehcet's disease (HCC) TAKE 1 TABLET BY MOUTH TWICE DAILY 180 tablet 1 05/30/2024 Active meloxicam (Mobic) 15 MG tabletIndications:N emily pain TAKE 1 TABLET BY MOUTH EVERY DAY 30 tablet 3 08/05/2024 Active cefdinir (Omnicef) 300 MG capsule Take 1 (one) capsule by mouth every 12 hours 08/03/2024 Active Cholecalciferol 25 MCG (1000 UT) Take by mouth Active Active Problems Problem Noted Date Diagnosed Date Vitamin deficiency 10/12/2018 Vitamin D deficiency 10/12/2018 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 Spasm of muscle Bladder pain Encounters Date Type Department Care Team Description 10/10/2024 1:20 PM CDT Office Visit [facility] - Rheumatology [address] [place] [phone] Ahsan Hdz MD Behcet's disease (Primary Dx); Encounter for long-term (current) use of medications; Need for hepatitis B screening test 10/10/2024 Travel 08/05/2024 Refill [facility] - Rheumatology [address] [place] [phone] Ahsan Hdz MD Refill Request from Last 3 Months Immunizations Name Administration Dates Next Due INFLUENZA VACCINE 04/19/2012 Family History Medical History Relation Name Comments Asthma Father CAD (Coronary Artery Disease) Maternal Grandfather Cancer Mother skin Hypertension Mother Cancer - Colon Paternal Grandmother Relation Name Status Comments Father Maternal Grandfather Mother Paternal Grandmother Social History Tobacco Use Types [...] on file Sexual Orientation Not on file Last Filed Vital Signs Vital Sign Reading Time Taken Comments Blood Pressure 116/68 10/10/2024 1:08 PM CDT Pulse 69 10/10/2024 1:08 PM CDT Temperature 36 C (96.8 F) 10/10/2024 1:08 PM CDT Respiratory Rate 18 07/23/2017 2:23 PM SUPPORT SERVICES COORDINATOR Oxygen Saturation 97% 09/28/2023 2:08 PM CDT Inhaled Oxygen Concentration - - Weight 64.5 kg (142 lb 4.8 oz) 10/10/2024 1:08 P M CDT Height 170.2 cm (5' 7 ) 10/10/2024 1:08 PM CDT Body Mass Index 22.29 10/10/2024 1:08 PM CDT Plan of Treatment Upcoming Encounters Date Type Department Care Team (Late st Contact Info) Description 10/17/2024 1:00 PM CDT Office Visit [facility] - Ophthalmology [address] [place] [phone] Ese Peters MD [address] [place] [address] [place] [phone] 12/29/2024 11:00 AM CDT [facility] - Ophthalmology [address] [place] [phone] Pravin Bates MD [address] [place] [address] [place] [phone] 04/10/2025 1:20 PM CDT Office Visit [facility] - Rheumatology [address] [place] [phone] Ahsan Hdz MD [address] [place] [address] [place] [phone] Health Maintenance Due Date Last Done Comments COLOGUARD (AGES 45-75) - COLON CA SCREENING 1963 COLON MONITORING 1963 COLONOSCOPY - COLON CA SCREENING 1963 CT COLONOGRAPHY - COLON CA SCREENING 1963 Colorectal Cancer Screening 1963 FIT - COLON CA SCREENING 1963 FLEX SIG - COLON CA SCREENING 1963 MAMMOGRAM 1963 MEDICARE AWV 12 MONTHS 1963 Opioid Medication Agreement - Annual 1963 HIV SCREENING 10/24/1978 DTAP/TDAP/TD VACCINES (1 - Tdap) 10/24/1982 PNEUMOCOCCAL VACCINE 50+ (1 of 1 - PCV) 10/24/2013 ZOSTER VACCINE (1 of 2) 10/24/2013 COVID-19 VACCINE (4 - 2023- season) 2024 03/09/2021, 10/11/2020, 09/20/2020 INFLUENZA VACCINE (#1) 2024 3, 04/10/2021, 05/06/2020, Additional history exists DEPRESSION SCREENING 07/20/2024 Respiratory Syncytial Virus (RSV) Vaccine Pt: or over 60 yrs (1 - 1-dose 75+ series) 10/24/2038 HEPATITIS C SCREENING Completed 03/16/2017, 017 HEPATITIS B VACCINE Aged Out No longe r eligible based on patient's age to complete this topic HIB VACCINE Aged Out No longer eligi ble based on patient's age to complete this topic HPV VACCINE Aged Out No longer eligi ble based on patient's age to complete this topic MENINGOCOCCAL (Group B) VACCINE SHARED DECISION-MAKING Aged Out No longer eligible based on patient's age to complete this topic MENINGOCOCCAL GROUPS A/C/Y/W VACCINE Aged Out No longer eligible based on patient's age to complete this topic Procedures Procedure Name Priority Date/Time Associated Diagnosis Comments HEPATITIS C AB W/RFLX TO HCV RNA QN PCR Routine 03/16/2017 11:07 AM CDT from Last 3 Months or Most Recently Relevant to Health Maintenance Results * HEPATITIS C AB W/RFLX TO HCV RNA QN PCR (03/16/2017 11:07 AM CDT) Hepatitis C Antibody NON-REACTI VE NON-REACT SRINI [facility]) Signal/Cutoff 0.01 <1.00 [facility]) Comment: REPORT COMMENT: FASTING:NO Test Performed at: [facility] [address] [address] [place] [address] JAVIER VIZCARRA DO,MPH 03/16/2017 11:0 7 AM CDT 03/16/2017 11:08 AM CDT Pat Amaya MD LAB - CHEMISTRY OR DERABLES [facility] ([facility]) from Last 3 Months or Most Recently Relevant to Health Maintenance Advance Directives * FULL RESUSCITATION (Latest Code Status on File) Date Activated Date Inactivated Comments 09/21/2012 11:48 PM 09/23/2012 1:49 PM Care Teams Extrusion Die Repair Manager Relationship Specialty Start Date End Date Jacky Lee MD [address] [place] [phone] PCP - General Internal Medicine 06/10/19
--- OUTSIDE RECORDS SUMMARY | 2024-10-11 13:53 | XMS_ITS | Referral Summary ---
Author Organization [facility] Address [address] [place] [address] Care Team Providers Care Crab Butcher Name Role Phone Jacky Lee MD Primary Care Provider [phone] Encounters Date Type Department Care Team Description 08/17/2024 3:00 PM POLICE LIAISON OFFICER Procedure visit [facility] Otolaryngology [address] [place] [phone] Silva Keenan Tinnitus of left ear (Primary Dx); Dysfunction of both eustachian tubes 08/17/2024 3:30 PM POLICE LIAISON OFFICER Office Visit [facility] Otolaryngology [address] [place] [phone] Juancarlos White MD Sensation of fullness in both ears (Primary Dx); Tinnitus of left ear; Nasal congestion; Migraine without aura and without status migrainosus, not intractable from Last 3 Months Allergies Active Allergy Reactions Criticality Noted Date [...] EVERY 12 HOURS 10/20/19 24 Active rizatriptan PEGGER (MAXALT-PEGGER) 10 mg disintegrating tabletIndications: Migraine without aura [...] 08/22/2024 Assessment & Plan (08/22/2024 7:22 PM POLICE LIAISON OFFICER): Both ears have a normal exam. She [...] 08/22/2024 Assessment & Plan (08/22/2024 7:23 PM POLICE LIAISON OFFICER): She does have normal hearing test and [...] 08/22/2024 Assessment & Plan (08/22/2024 7:24 PM POLICE LIAISON OFFICER): She has been using Afrin nasal spray [...] 02/15/2021 Assessment & Plan (08/22/2024 7:33 PM POLICE LIAISON OFFICER): This could be responsible for the periods [...] 07/05/2020 Assessment & Plan (07/05/2020 10:02 AM POLICE LIAISON OFFICER): Patient has very mild non flow-limiting stenosis left subclavian artery. Noninvasive arterial studies and CT a are essentially normal. Her symptoms do not correlate with left subclavian stenosis and or subclavian steal. From my standpoint no need for further vascular workup. Follow-up with me on a p.r.n. basis. Tachycardia 07/05/2020 Assessment & Plan (07/05/2020 10:04 AM POLICE LIAISON OFFICER): Patient has intermittent tachycardia. Recent Holter monitor [...] syndrome Assessment & Plan (07/05/2020 10:03 AM POLICE LIAISON OFFICER): Currently controlled medical therapy. Arthralgia of shoulder [...] follow-up in neurology clinic in a year. Immunizations Immunization Administration Dates Next Due Flucelvax Influenza Quad 05/06/2020,05/06/2018 Influenza, Quadrivalent, Split, Intramuscular Influenza, Unspecified 08/05/2013,04/05/2012 Pneumococcal, Unspecified 04/05/2012 Social History Tobacco Use Types Packs/Day Years Used Date Smoking Tobacco: Former Cigarettes Smokeless Tobacco: Never Tobacco Cessation:Counseling Given: Not Answered Comments Unknown Sex and Gender Information Value Date Recorded Sex Assigned at Not on file Legal Sex Female 2:46 PM POLICE LIAISON OFFICER Gender Identity Not on file Sexual Orientation Not on file Last Filed Vital Signs Vital Sign Reading Time Taken Comments Blood Pressure 140/62 09/24/2023 1:13 PM POLICE LIAISON OFFICER Pulse 85 09/24/2023 1:13 PM POLICE LIAISON OFFICER Temperature 36 C (96.8 F) 10/17/2022 1:19 PM CDT Respiratory Rate 18 08/17/2024 3:45 PM POLICE LIAISON OFFICER Oxygen Saturation 99% 10/17/2022 1:19 PM CDT Inhaled Oxygen Concentration - - Weight 63.5 kg (140 lb) 08/17/2024 3:45 PM POLICE LIAISON OFFICER Height 170.2 cm (5' 7 ) 08/17/2024 3:45 PM POLICE LIAISON OFFICER Body Mass Index 21.93 08/17/2024 3:45 PM POLICE LIAISON OFFICER Plan of Treatment Not on file Insurance MEDICARE [facility] [address] [place] [id number] MEDICARE FORMERLY [facility] MEDICARE [facility] Care Teams Crab Butcher Relationship Specialty Start Date End Date Jacky Lee MD [address] [facility] [place] [phone] PCP - General 06/20/13
--- OUTSIDE RECORDS SUMMARY | 2024-10-11 13:53 | XMS_ITS | Encounter Summary ---
Author Organization [facility] Address [address] [facility] [place] [address] Care Team Providers Care Shingle Sawyer Name Role Phone Jacky Lee MD Primary Care Provider [phone] Reason for Visit * Reason Onset Date Comments Reschedule Appointment 03/23/2024 Encounter Details Date Type Department Care Team (Late st Contact Info) Description 03/23/2024 Telephone [facility] - Ophthalmology [address] [place] [phone] Ese Peters MD [address] [place] [address] [place] [phone] Reschedule Appointment Social History Tobacco Use Types Packs/Day Years [...] encounter Miscellaneous Notes * Telephone Encounter - Tricia Rubio - 03/23/2024 11:20 AM CDT Pt called stating she needs to reschedule her appt from today. documented in this encounter Plan of Treatment Upcoming Encounters Date Type Department Care Team (Late st Contact Info) Description 10/17/2024 1:00 PM CDT Office Visit [facility] - Ophthalmology [address] [place] [phone] Ese Peters MD [address] [place] [address] [place] [phone] 12/29/2024 11:00 AM CDT Office Visit [facility] - Ophthalmology [address] [place] [phone] Pravin Bates MD [address] [place] [address] [place] [phone] 04/10/2025 1:20 PM CDT Office Visit [facility] - Rheumatology [address] [place] [phone] Ahsan Hdz MD [address] [place] [address] [place] [phone] documented as of this encounter Visit Diagnoses Not on filedocumented in this encounter Care Teams Shingle Sawyer Relationship Specialty Start Date End Date Jacky Lee MD [address] [facility] [address] [facility] [address] [place] [phone] PCP - General Internal Medicine 06/10/19 documented as of this encounter
--- OUTSIDE RECORDS SUMMARY | 2024-10-11 13:53 | XMS_ITS | Encounter Summary ---
Author Organization [facility] Address [address] [facility] [place] [address] Care Team Providers Care Strip Cleaner Name Role Phone Jacky Lee MD Primary Care Provider [phone] Reason for Visit * Reason Onset Date Comments MEDICATION REFILL 04/07/2023 Encounter Details Date Type Department Care Team (Late Contact Info) Description 04/07/2023 Refill [facility] - Rheumatology [address] [place] [phone] Ahsan Hdz MD [address] [place] [address] [place] [phone] MEDICATION REFILL Social History Tobacco Use Types [...] Office Visit [facility] - Ophthalmology [address] [place] [phone] Ese Peters MD [facility] [facility] [place]PT [place] [phone] 12/29/2024 11:00 AM CDT Office Visit [facility] - Ophthalmology [address] [place] [address], [place] [phone] Pravin Bates MD [facility] [facility] [place]PT [place] [phone] 04/10/2025 1:20 PM CDT Office Visit [facility] - Rheumatology [address] [place] [phone] Ahsan Hdz MD [address] [place] [address] [place] [phone] documented as of this encounter Visit Diagnoses Diagnosis Behcet's disease (HCC) Behcet's syndrome documented in this encounter Care Teams Strip Cleaner Relationship Specialty Start Date End Date Jacky Lee MD [address] [phone] PCP - General Internal Medicine 06/10/19 documented as of this encounter
[2024-10-11 14:52] LABS: Erythrocyte Sedimentation Rate 6 mm/hr (0-20)
[2024-10-12 09:57] LABS: Hepatitis B Core Ab Total NON-REACTIVE (NON-REACTIVE)
[2024-10-13 18:38] LABS: NIL 0.01 IU/mL; Quantiferon TB Plus, 1T NEGATIVE (NEGATIVE); TB1-NIL 0.01 IU/mL
== END 2024-10-11 11:36 | disposition home or self-care (01) ==
PROVIDERS: PCP Internal Medicine; Referring Provider Internal Medicine Rheumatology; Visit Provider Internal Medicine
DX: M35.2 Behcet's disease (principal); I10 Essential (primary) hypertension; E78.2 Mixed hyperlipidemia; R79.89 Other specified abnormal findings of blood chemistry; Z13.29 Encounter for screening for other suspected endocrine disorder; Z13.1 Encounter for screening for diabetes mellitus; Z79.899 Other long term (current) drug therapy
CPT/HCPCS: 36415; 80053; 80061; 81001; 83036; 84439; 84443; 85025; 85652; 86140; 86480; 86704; 86803; 87086; 87340

== ENCOUNTER 2024-12-08 15:30 | Outpatient (CLI) | payer MEDICARE, SELFPAY ==
--- NOTE | ~2024-12-08 | MM_ITS ---
EXAMINATION: MM screening biju BI w lisandro HISTORY: Screening TECHNIQUE: Craniocaudal and mediolateral oblique 3-D tomosynthesis images were obtained and synthetic 2-D images were generated. CAD analysis was submitted and interpreted. COMPARISON: Comparison to multiple prior studies sequentially, with oldest reviewed study dated 11/2019. BREAST PARENCHYMAL COMPOSITION: Not dense: There are scattered areas of fibroglandular density. FINDINGS: There is no evidence of suspicious mass, calcification, or architectural distortion to sugg est malignancy in either breast. There has been no suspicious interval change. IMPRESSION: 1. No mammographic evidence of malignancy. 2. Recommend routine screening mammography in one year. BI-RADS Category 1: Negative Reviewed, dictated and finalized at location B.
--- OUTSIDE RECORDS SUMMARY | 2024-12-08 15:34 | XMS_ITS | Encounter Summary ---
Author Organization [facility] Address [address] [facility] [place] [address] Care Team Providers Care Cost Control Analyst Name Role Phone Jacky Lee MD Primary Care Provider [phone] Reason for Visit * Reason Onset Date Comments MEDICATION REFILL 04/07/2023 Encounter Details Date Type Department Care Team (Late st Contact Info) Description 04/07/2023 Refill [facility] - Rheumatology [address] [place] [address], [facility] [place] [phone] Ahsan Hdz MD [address] [place] [address] [place] [phone] MEDICATION REFILL Social History Tobacco Use Types Packs/Day Years Used Date Smoking Tobacco: Former Cigarettes 0.3 20 Smokeless Tobacco: Never Alcohol Use Standard Drinks/Week Comments No 0 (1 standard drink = 0.6 oz pur e alcohol) PHQ-2 Answer Date Recorded PHQ2 TOTAL SCORE 0 10/15/2021 Comments No Sex and Gender Information Value Date Recorded Sex Assigned at Not on file Legal Sex Female 6:14 AM 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 Gender Identity Not on file Sexual Orientation Not on file Occupation Industry Job Start Date Job End Date disabled Not on file Not on file Not on file documented as of this encounter Plan of Treatment Upcoming Encounters Date Type Department Care Team (Late st Contact Info) Description 12/29/2024 11:00 AM CDT Office Visit [facility] - Ophthalmology [address] [place] [address], [place] [phone] Praivn Bates MD [facility] [facility] [place] [phone] 04/10/2025 1:20 PM CDT Office Visit [facility] Rheumatology [address] [place] [address], [place] [phone] Ahsan Hdz MD [facility] [place] [phone] documented as of this encounter Visit Diagnoses Diagnosis Behcet's disease (HCC) Behcet's syndrome documented in this encounter Care Teams Cost Control Analyst Relationship Specialty Start Date End Date Jacky Lee MD [address] [facility] [address] [facility] [address] [place] [phone] PCP - General Internal Medicine 06/10/19 documented as of this encounter
--- OUTSIDE RECORDS SUMMARY | 2024-12-08 15:34 | XMS_ITS | Encounter Summary ---
Author Organization [facility] Address [address] [facility] [place] [address] Care Team Providers Care Umbrella Tipper Machine Name Role Phone Jacky Lee MD Primary Care Provider [phone] Reason for Visit * Reason Onset Date Comments Appointment 10/17/2024 Encounter Details Date Type Department Care Team (Late st Contact Info) Description 10/17/2024 Telephone [facility] - Centralized Scheduling [address] [place] [phone] Ese Peters MD [address] [facility] [place] [address] Appointment Social History Tobacco Use Types Packs/Day [...] on file Legal Sex Female 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 She would toreschedule, please Patient Call Back Number: [phone] documented in this encounter Plan of Treatment Upcoming Encounters Date Type Department Care Team (Late st Contact Info) Description 12/29/2024 11:00 AM CDT Office Visit [facility] - Ophthalmology [address] [place] [address], [place] [phone] Pravin Bates MD [address] [place] [address] [place] [phone] 04/10/2025 1:20 PM CDT Office Visit [facility] - Rheumatology [address] [place] [phone] Ahsan Hdz MD [address] [place] [address] [place] [phone] documented as of this encounter Visit Diagnoses Not on filedocumented in this encounter Care Teams Umbrella Tipper Machine Relationship Specialty Start Date End Date Jacky Lee MD [address] [facility] [address] [facility] [address] [place] [phone] PCP - General Internal Medicine 06/10/19 documented as of this encounter
--- OUTSIDE RECORDS SUMMARY | 2024-12-08 15:34 | XMS_ITS | Clinical Summary ---
Author Organization [facility] [employer] Address [address] [place] [address] Care Team Providers Care Manager Grant Name Role Phone Jacky Lee MD Primary Care Provider [phone] Source Comments [facility],non-owned Affiliates and Associated Physician Practices is amultiple site organization consisting of ambulatory clinics and hospital sitesin [place], [place], [place] and [place]. This disclosure is being madepursuant to the Care Everywhere program and may not contain all information available regarding this patient. Last updated 18.[facility] [employer] Allergies Active Allergy Reactions Criticality Noted Date Comments Adhesive Sensitivity Rash Low 07/31/2010 Sulfamethoxazole W-Trimethoprim Urticaria Medium 10/11/2018 Butorphanol Anaphylaxis High 07/30/2010 Certolizumab Pegol Urticaria 08/23/2015 Gentamicin Urticaria 07/30/2010 Nitrofurantoin Urticaria,Other Medium 10/11/2018 Welts Meperidine Nausea and/or Vomiting 07/30/2010 Methocarbamol Other Medium 06/16/2016 Moxifloxacin Nausea and/or Vomiting 07/30/2010 Prochlorperazine MISDRAW HAND Dysfunction 07/30/2010 Nothing for nausea except zofran [...] document. Alwaysverify current medications with the patient. ondansetron (ZOFRAN) 8 MG tablet Take 1 (one) tablet by mouth every 8 hours as needed Active aspirin EC (ECOTRIN) 81 MG tablet Take 1 (one) tablet by mouth once daily Active diphenhydrAMIN E (BENADRYL) 50 MG capsuleIndicat ions:Pruritus Take 1 (one) capsule by mouth at bedtime Reasons: Itching Active omeprazole (PRILOSEC) 40 MG capsule Take 1 (one) capsule by mouth 2 times daily, before breakfast and supper Active folic acid (FOLVITE) 1 MG tablet Take 1 (one) tablet by mouth once daily 05/12/20 19 Active dicyclomine (BENTYL) 10 MG capsule Take 1 (one) capsule by mouth 3 times daily as needed 06/02/20 19 Active carBAMazepine (TEGRETOL) 200 MG tablet Take 1 (one) tablet by mouth 3 times daily 04/01/20 19 Active magnesium Cl-Calcium Carbonate (Slow-Mag) 71.5 mg9 MG tablet Take 1 (one) tablet by mouth once daily Active Apremilast (OTEZLA) 30 MGIndications: Behcet's disease (HCC) Take 1 tablet by mouth 2 times daily 180 tablet 3 04/04/20 20 Active topiramate (TOPAMAX) 200 MG tablet TK 1 T PO TID 12/20/19 20 Active naltrexone 3 mg/ml compd solution Take 1 mL by mouth once daily Active dilTIAZem coated beads 24hr (CARDIZEM CD) 360 MG capsule Take 1 (one) capsule by mouth once daily 11/13/19 21 Active tiZANidine (Zanaflex) 4 MG tablet Take 1 (one) tablet by mouth every 8 hours as needed 12/05/19 22 Active rizatriptan, disintegrating , (Maxalt THERAPIST PHYS) 10 MG tablet Take 1 (one) tablet by mouth as directed 12/24/19 22 Active pravastatin (Pravachol) 80 MG tablet Take 1 (one) tablet by mouth once daily 09/21/19 24 Active polyethylene glycol 3350 (Miralax) 17 GM/SCOOP powder Take 17 (seventeen) g by mouth once daily Active azelastine (Astelin) 0.1 % nasal spray [place] 1 (one) spray into each nostril once daily Active meloxicam (Mobic) 15 MG tabletIndicati ons:Neck pain TAKE 1 TABLET BY MOUTH EVERY DAY 30 tablet 3 08/05/19 25 Active cefdinir (Omnicef) 300 MG capsule Take 1 (one) capsule by mouth every 12 hours 08/03/19 25 Active Cholecalcifero l 25 MCG (1000 UT) Take by mouth Active colchicine 0.6 MG tabletIndicati ons:Behcet's disease (HCC) TAKE 1 TABLET BY MOUTH TWICE DAILY 180 tablet 1 12/08/19 25 Active colchicine 0.6 MG tabletIndicati ons:Behcet's disease (HCC) TAKE 1 TABLET BY MOUTH TWICE DAILY 180 tablet 1 05/30/20 24 025 Discontinued Active Problems Problem Noted Date Diagnosed Date Vitamin deficiency 10/12/2018 Vitamin D deficiency 10/12/2018 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 Spasm of muscle Bladder pain Encounters Date Type Department Care Team Description 12/06/2024 Refill [facility] - Rheumatology [address] [place] [phone] Ahsan Hdz MD Refill Request 11/24/2024 Telephone [facility] - Ophthalmology [address] [place] [phone] Ese Peters MD [facility]; Appointment 11/21/2024 Telephone [facility] - Ophthalmology [address] [place] [phone] Ese Peters MD Appointment 11/14/2024 Telephone [facility] - Ophthalmology [address] [place] [phone] Ese Peters MD Appointment 10/20/2024 Orders Only [facility] - Rheumatology [address] [place] [phone] Ahsan Hdz MD Encounter for long-term (current) use of medications 10/17/2024 Telephone [facility] - Centralized Scheduling [address] [place] [phone] Ese Peters MD Appointment 10/11/2024 Orders Only [facility] - Rheumatology [address] [place] [phone] Ahsan Hdz MD Encounter for long-term (current) use of medications 10/10/2024 1:20 PM CDT Office Visit [facility] Rheumatology [address] [place] [phone] Ahsan Hdz MD Behcet's disease (Primary Dx); Encounter for long-term (current) use of medications; Need for hepatitis B screening test 10/10/2024 Travel from Last 3 Months Immunizations Immunization Administration Dates Next Due INFLUENZA VACCINE 04/19/2012 [...] on file Legal Sex Female 6:14 AM ARGON TESTER Gender Identity Not on file Sexual Orientation Not on file Occupation Industry Job Start Date Job End Date disabled Not on file Not on file Not on file Last Filed Vital Signs Vital Sign Reading Time Taken Comments Blood Pressure 116/68 10/10/2024 1:08 PM CDT Pulse 69 10/10/2024 1:08 PM CDT Temperature 36 C (96.8 F) 10/10/2024 1:08 PM CDT Respiratory Rate 18 07/23/2017 2:23 PM ARGON TESTER Oxygen Saturation 97% 09/28/2023 2:08 PM CDT Inhaled Oxygen Concentration - - Weight 64.5 kg (142 lb 4.8 oz) 10/10/2024 1:08 P M CDT Height 170.2 cm (5' 7 ) 10/10/2024 1:08 PM CDT Body Mass Index 22.29 10/10/2024 1:08 PM CDT Plan of Treatment Upcoming Encounters Date Type Department Care Team (Late st Contact Info) Description 12/29/2024 11:00 AM CDT Office Visit [facility] - Ophthalmology [address] [place] [address], [place] [phone] Pravin Bates MD [address] [place] [address] [place] [phone] 04/10/2025 1:20 PM CDT Office Visit [facility] - Rheumatology [address] [place] [address], [place] [phone] Ahsan Hdz MD [address] [place] [address] [place] [phone] Health Maintenance Due Date Last Done Comments [...] VACCINE (1 of 2) 10/24/2013 COVID-19 VACCINE ( - season) 2024 03/09/2021, 10/11/2020, 09/20/2020 DEPRESSION SCREENING 07/20/2024 INFLUENZA VACCINE (Season Ended) 2025 04/20/2023, 04/10/2021, 05/06/2020, Additional history exists Respiratory Syncytial Virus (RSV) Vaccine Pt: or [...] C Antibody NON-REACTI VE NON-REACT SRINI [facility] Signal/Cutoff 0.01 <1.00 [facility] Comment: REPORT COMMENT: FASTING:NO Test Performed at: [facility] [address] [place] [address] JAVIER VIZCARRA DO,MPH 03/16/2017 11:0 7 AM CDT 03/16/2017 11:08 AM CDT us Pat Amaya MD LAB - CHEMISTRY ORDERABLES Final Result [facility] [id number] from Last 3 Months or Most Recently Relevant to Health Maintenance Insurance [facility] MEDICARE Member Subscriber Plan / Payer (Ef fective 2009-Present) Name:Belkys Lee R Member ID:[id number] Relation to Subscriber:Self Name:Belkys Lee Subscriber ID:[id number] Payer ID:Not on file Group ID:Not on file Type:Medicare Address: [address] MEDICARE Member Subscriber Plan / Payer (Ef fective 2009-Present) Name:Belkys Lee Member ID:[id number] Relation to Subscriber:Self Name:Belkys Lee Subscriber ID:[id number] Payer ID:Not on file Group ID:Not on file Type:Medicare Address: [address] Advance Directives * FULL RESUSCITATION (Latest Code Status on File) Date Activated Date Inactivated Comments 09/21/2012 11:48 PM 09/23/2012 1:49 PM Care Teams Manager Grant Relationship Specialty Start Date End Date Jacky Lee MD [address] [facility] [address] [place] [phone] PCP - General Internal Medicine 06/10/19
--- OUTSIDE RECORDS SUMMARY | 2024-12-08 15:34 | XMS_ITS | Encounter Summary ---
Author Organization [facility] Address [address] [facility] [place] [address] Care Team Providers Care Import Customs Clearing Agent Name Role Phone Jacky Lee MD Primary Care Provider [phone] Reason for Visit * Reason Onset Date Comments Reschedule Appointment 03/23/2024 Encounter Details Date Type Department Care Team (Late st Contact Info) Description 03/23/2024 Telephone [facility] - Ophthalmology [address] [place] [phone] Ese Peters MD [address] [place] [address] [place] [phone] Reschedule Appointment Social History Tobacco [...] on file 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 Gender Identity Not on file Sexual Orientation [...] Description 12/29/2024 11:00 AM CDT [facility] [address] [place] [address], [place] [phone] Pravin Bates MD [address] [place] [address] [place] [phone] 04/10/2025 1:20 PM CDT Office Visit [facility] - Rheumatology [address] [place] [phone] Ahsan Hdz MD [address] [place] [address] [place] [phone] documented as of this encounter Visit Diagnoses Not on filedocumented in this encounter Care Teams Import Customs Clearing Agent Relationship Specialty Start Date End Date Jacky Lee MD [address] [facility] [address] [place] [phone] PCP - General Internal Medicine 06/10/19 documented as of this encounter
--- OUTSIDE RECORDS SUMMARY | 2024-12-08 15:34 | XMS_ITS | Encounter Summary ---
Author Organization [facility] Address [address] [facility] [place] [address] Care Team Providers Care Ophthalmic Dispenser Name Role Phone Jacky Lee MD Primary Care Provider [phone] Reason for Visit * Reason Comments Refill Request Encounter Details Date Type Department Care Team (Late st Contact Info) Description 12/06/2024 Refill [facility] - Rheumatology [address] [place] [address], [place] [phone] Ahsan Hdz MD [address] [place] [address] [place] [phone] Refill Request Social History Tobacco Use Types Packs/Day Years Used Date Smoking Tobacco: Former Cigarettes 0.3 20 Smokeless Tobacco: Never Alcohol Use Standard Drinks/Week Comments No 0 (1 standard drink = 0.6 oz pur e alcohol) PHQ-2 Answer Date Recorded PHQ2 TOTAL SCORE 0 10/15/2021 Comments No Sex and Gender Information Value Date Recorded Sex Assigned at Not on file 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 Sex 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 Gender Identity Not on file Sexual Orientation Not on file Occupation Industry Job Start Date Job End Date disabled Not on file Not on file Not on file documented as of this encounter Miscellaneous Notes * Telephone Encounter - Malathi Cruz - 12/07/2024 10:33 AM CDT Refill Request Ruth Lee JESSENIA: 10/11/19-May scheduled: 04/10/2025 LRF: 05/30/2024 Qty Disp: 180 # of refills: 1 Allergies: Allergies[1] Pended Medication Order: Requested Prescriptions Pending Prescriptions Disp Refills colchicine 0.6 MG tablet [Pharmacy Med Name: COLCHICINE 0.6MG TABLETS] 180 tablet 1 Sig: TAKE 1 TABLET BY MOUTH TWICE DAILY [1] Allergies Allergen Reactions Butorphanol Anaphylaxis Promethazine Other sever dystonia Macrobid [Nitrofurantoin] Urticaria and Other Welts Gentamicin Urticaria Meperidine Nausea and/or Vomiting Moxifloxacin Nausea and/or Vomiting Prochlorperazine PULP PLANT SUPERVISOR Dysfunction Nothing for nausea except zofran Bactrim [Sulfamethoxazole W-Trimethoprim] Urticaria Methocarbamol Other Cimzia [Certolizumab Pegol] Urticaria Quinolones Urticaria Remicade [Infliximab] Other and Fever Contraindicated Robaxin [Methocarbamol] Urticaria Solifenacin Succinate Palpitations Also reacted to Toviaz Adhesive Sensitivity Rash Tegaderm Hydrogel Wound Other Redness/ itching Vesicare [Solifenacin] Other Palpations Palpations Palpations documented in this encounter Plan of Treatment Upcoming Encounters Date Type Department Care Team (Late st Contact Info) Description 12/29/2024 11:00 AM CDT Office Visit [facility] - Ophthalmology [address] [place] [phone] Pravin Bates MD [address] [place] [address] [place] [phone] 04/10/2025 1:20 PM CDT Office Visit [facility] - Rheumatology [address] [place] [phone] Ahsan Hdz MD [address] [place] [address] [place] [address] documented as of this encounter Visit Diagnoses Diagnosis Behcet's disease (HCC) Behcet's syndrome documented in this encounter Care Teams Ophthalmic Dispenser Relationship Specialty Start Date End Date Jacky Lee MD [address] [facility] [address] [facility] [address] [place] [phone] PCP - General Internal Medicine 06/10/19 documented as of this encounter
--- OUTSIDE RECORDS SUMMARY | 2024-12-08 15:34 | XMS_ITS | Encounter Summary ---
Author Organization [facility] Address [address] [facility] [place] [address] Care Team Providers Care Curtain Mender Name Role Phone Jacky Lee MD Primary Care Provider [phone] Reason for Visit * Reason Onset Date Comments MEDICATION REFILL 08/22/2020 Encounter Details Date Type Department Care Team (Late st Contact Info) Description 08/22/2020 Refill [facility] [address] [place] [address], [place] [phone] Ahsan Hdz MD [address] [place] [address] [place] [phone] MEDICATION REFILL Social History Tobacco Use Types Packs/Day Years Used Date Smoking Tobacco: Former Cigarettes 0.3 20 Smokeless Tobacco: Never Alcohol Use Standard Drinks/Week Comments No 0 (1 standard drink = 0.6 oz pur e alcohol) Comments No Sex and Gender Information Value Date Recorded Sex Assigned at Not on file 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 Moxifloxacin Nausea and/or Vomiting ??? Prochlorperazine INTELLIGENCE CLERK Dysfunction Nothing for nausea except zofran ??? [...] ??? vitamin D, ergocalciferol, (DRISDOL) 1.25 MG (73006 UT) capsule 4 capsule 0 Sig: TAKE 1 CAPSULE BY MOUTH ONCE WEEKLY DIRECTED LAUNCH WEAPONS TECHNICIAN documented in this encounter Plan of Treatment Upcoming Encounters Date Type Department Care Team (Late st Contact Info) Description 12/29/2024 11:00 AM CDT Office Visit [facility] - Ophthalmology [address] [place] [address], [place] [phone] Pravin Bates MD [address] [place] [address] [place] [phone] 04/10/2025 1:20 PM CDT Office Visit [facility] - Rheumatology [address] [place] [phone] Ahsan Hdz MD [address] [place] [address] documented as of this encounter Visit Diagnoses Not on filedocumented in this encounter Care Teams Curtain Mender Relationship Specialty Start Date End Date Jacky Lee MD [address] [facility] [address] [place] [phone] PCP - General Internal Medicine 06/10/19 documented as of this encounter
--- OUTSIDE RECORDS SUMMARY | 2024-12-08 15:34 | XMS_ITS | Encounter Summary ---
Author Organization [facility] Address [address] [facility] [place] [address] Care Team Providers Care Wire Setter Name Role Phone Jacky Lee MD Primary Care Provider [phone] Jacky Lee MD Primary Care Provider [phone] Reason for Visit * Reason Onset Date Comments MEDICATION REFILL 09/21/2018 Encounter Details Date Type Department Care Team (Late Contact Info) Description 09/21/2018 Refill 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 Gender Identity Not on file Sexual Orientation Not on file Occupation Industry Job Start Date Job End Date disabled Not on file Not on file Not on file documented as of this encounter Plan of Treatment Upcoming Encounters Date Type Department Care Team (Late Contact Info) Description 12/29/2024 11:00 AM CDT Office Visit [facility] - Ophthalmology [address] [facility], [place] [phone] Pravin Bates MD [address] [facility] [place] [phone] 04/10/2025 1:20 PM CDT Office Visit [facility] - Rheumatology [address] [place] [address], [place] [phone] Ahsan Hdz MD [address] [place] [phone] documented as of this encounter Visit Diagnoses Not on filedocumented in this encounter Care Teams Wire Setter Relationship Specialty Start Date End Date Jacky Lee MD [address] [facility] [address] [place] [phone] PCP - General 11/11/07 06/09/19 Jacky Lee MD [address] [facility] [address] [place] [phone] PCP - General Internal Medicine 06/10/19 documented as of this encounter
--- OUTSIDE RECORDS SUMMARY | 2024-12-08 15:35 | XMS_ITS | Clinical Summary ---
Author Organization [facility] at the [facility] Address [address] [place] [address] Care Team Providers Care Electrical And Instrumentation Manager Name Role Phone Jacky Lee MD Primary Care Provider [phone] Allergies Active Allergy Reactions Criticality Noted Date [...] NOSTRILS EVERY 12 HOURS 10/20/19 24 Active cholecalciferol, vitamin D3, 1,000 unit tablet,chewable Take by mouth Active topiramate (Topamax) 100 mg tablet Take 1 tablet (100 mg total) by mouth 3 (three) times a day 90 tablet 11 10/19/19 25 026 Active carBAMazepine (TEGretol) 200 mg tabletIndications: Psychogenic nonepileptic seizure Take 1 tablet (200 mg total) by mouth 3 (three) times a day 90 tablet 11 10/19/19 026 Active rizatriptan WEB DEVELOPMENT MANAGER (MAXALT-WEB DEVELOPMENT MANAGER) 10 mg disintegrating tabletIndications: Migraine without aura and without status migrainosus, not intractable Take 1 tablet (10 mg total) by mouth as needed for migraine May repeat in 2 hours if unresolved. Do not exceed 30 mg in 24 hours. 9 tablet 10/19/19 026 Active Active Problems Problem Noted Date Diagnosed Date Sensation of fullness in both ears 08/22/2024 Assessment & Plan (08/22/2024 7:22 PM WEB DEVELOPMENT MANAGER): Both ears have a normal exam. She [...] 08/22/2024 Assessment & Plan (08/22/2024 7:23 PM WEB DEVELOPMENT MANAGER): She does have normal hearing test and [...] 08/22/2024 Assessment & Plan (08/22/2024 7:24 PM WEB DEVELOPMENT MANAGER): She has been using Afrin nasal spray [...] 02/15/2021 Assessment & Plan (08/22/2024 7:33 PM WEB DEVELOPMENT MANAGER): This could be responsible for the periods [...] 07/05/2020 Assessment & Plan (07/05/2020 10:02 AM WEB DEVELOPMENT MANAGER): Patient has very mild non flow-limiting stenosis left subclavian artery. Noninvasive arterial studies and CT a are essentially normal. Her symptoms do not correlate with left subclavian stenosis and or subclavian steal. From my standpoint no need for further vascular workup. Follow-up with me on a p.r.n. basis. Tachycardia 07/05/2020 Assessment & Plan (07/05/2020 10:04 AM WEB DEVELOPMENT MANAGER): Patient has intermittent tachycardia. Recent Holter monitor [...] syndrome Assessment & Plan (07/05/2020 10:03 AM WEB DEVELOPMENT MANAGER): Currently controlled medical therapy. Arthralgia of shoulder [...] Encounters Date Type Department Care Team Description 11/30/2024 Orders Only [facility] [address] [place] [address] Unknown, Notinfile 10/18/2024 3:00 PM CDT Office Visit [facility] Neurology [address] [place] [phone] Erik Babin Si, MD Dystonia (Primary Dx); Psychogenic nonepileptic seizure; Migraine without aura and without status migrainosus, not intractable from Last 3 Months Immunizations Immunization Administration [...] on file Legal Sex Female 2:46 PM WEB DEVELOPMENT MANAGER Gender Identity Not on file Sexual Orientation Not on file Obstetrics History Last Filed Vital Signs Vital Sign Reading Time Taken Comments Blood Pressure 142/78 10/18/2024 3:01 PM CDT Pulse 77 10/18/2024 3:01 PM CDT Temperature 36 C (96.8 F) 10/17/2022 1:19 PM CDT Respiratory Rate 18 08/17/2024 3:45 PM WEB DEVELOPMENT MANAGER Oxygen Saturation 99% 10/17/2022 1:19 PM CDT Inhaled Oxygen Concentration - - Weight 63.5 kg (140 lb) 10/18/2024 3:01 PM CDT Height 170.2 cm (5' 7 ) 10/18/2024 3:01 PM CDT Body Mass Index 21.93 10/18/2024 3:01 PM CDT Plan of Treatment Health Maintenance Due Date Last Done Comments Breast Cancer Screening-Mammogram 1965 Colon Cancer Screening-Colonoscopy 1965 Depression Screening 1965 Hepatitis C Screening 1965 DTaP/Tdap/Td Vaccine (1 - Tdap) 10/24/1974 Hepatitis B Screening 10/24/1981 Regular Well Visit/Exam 18-64 10/24/1981 Zoster Vaccine (1 of 2) 10/24/2013 Influenza Vaccine (Season Ended) 2025 05/06/2020, 04/12/2019, 05/06/2018, Additional history exists Pneumococcal vaccine <65 Aged Out 04/05/2012 No longer eligible based on patient's age to complete this topic Procedures Procedure Name Priority Date/Time Associated Diagnosis Comments SURGICAL PATHOLOGY Routine 11/30/2024 12 :00 AM CDT from Last 3 Months Results * Surgical pathology (11/30/2024 12:00 AM CDT) Skin, shave biopsy 11/30/2024 12/01/2024 6:38 AM CDT Narrative 12/02/2024 4:11 PM CDT EPIC results best viewed via link to PDF [facility] [address] [place] [address], [address], [place] [address] [email or web address] Note to Patients: This report may contain a detailed description of human tissue sent by a health care provider to the laboratory for pathologic evaluation. The content of this report is essential for diagnosis and may provide important critical findings. This information may be unfamiliar to patients to review without a medical professional present. It is advised that the patient review this report in the presence of a health care provider who can answer questions and explain the details. FINAL REPORT Patient Information: PATIENT NAME: BELKYS LEE SEX: F : 1965 (Age: 59) Specimen Information: COLLECTED: 11/30/2024 RECEIVED: 12/01/2024 REPORTED: 12/02/2024 Submitting Physician Information: Greta Crews, [facility]- [facility], [address] [place] [id number], DERMATOPATHOLOGY REPORT RESULTS DIAGNOSIS: A. SKIN, SUPERIOR THORACIC SPINE, SHAVE BIOPSY: JUNCTIONAL MELANOCYTIC NEVUS, LENTIGINOUS TYPE, RUBBED B. SKIN, RIGHT ANTERIOR PROXIMAL UPPER ARM, SHAVE BIOPSY: COMPOUND MELANOCYTIC NEVUS, LENTIGINOUS TYPE, RUBBED C. SKIN, PERIUMBILICAL SKIN, SHAVE BIOPSY: JUNCTIONAL MELANOCYTIC NEVUS, LENTIGINOUS TYPE, RUBBED D. SKIN, RIGHT BUTTOCK, SHAVE BIOPSY: COMPOUND MELANOCYTIC NEVUS, LENTIGINOUS TYPE, RUBBED cr/isr By this signature, I attest that the above diagnosis is based upon my personal examination of the slides(and/or other material indicated in the diagnosis). Gena Blackmon M.D. Report Electronically Reviewed and Signed Out By Gena Blackmon M.D. 12/02/2024 16:11:58 CLINICAL INFORMATION A-D. NEOPLASM OF UNCERTAIN BEHAVIOR VS DYSPLASTIC NEVUS SPECIMEN DATA MICROSCOPIC DESCRIPTION: A. There is a proliferation of enlarged, relatively uniform melanocytes arranged predominantly as solitary units but also as small nests within the epidermis at the dermo-epidermal junction. There is also reticulated epidermal hyperplasia and hyperpigmentation. (D22.9) B. There is a proliferation of enlarged monomorphous melanocytes arranged as solitary units and small nests within the epidermis, at the dermo-epidermal junction and within the papillary dermis. (D22.9) C. There is a proliferation of enlarged, relatively uniform melanocytes arranged predominantly as solitary units but also as small nests within the epidermis at the dermo-epidermal junction. There is also reticulated epidermal hyperplasia and hyperpigmentation. (D22.9) D. There is a proliferation of enlarged monomorphous melanocytes arranged as solitary units and small nests within the epidermis, at the dermo-epidermal junction and within the papillary dermis. (D22.9) GROSS DESCRIPTION: A. Received in a formalin-containing bottle are two superficial fragments of pale [place], finely scaling, and semi-translucent skin measuring 0.4 by 0.1 by 0.1 cm and 0.2 by 0.1 by 0.1 cm. The surgical margins are inked blue. The specimen is submitted entirely in a single cassette. Due to shrinkage, measurements may be different than those at the time of procedure. B. Received in a formalin-containing bottle is a superficial fragment of brown, finely scaling, and hair-bearing skin measuring 0.6 by 0.4 by 0.1 cm. The surgical margin is inked blue. The specimen is sectioned into 2 pieces and submitted entirely in a single cassette. Due to shrinkage, measurements may be different than those at time of procedure. C. Received in a formalin-containing bottle is a superficial fragment of pale wal[place], finely scaling, and semi-translucent skin measuring 0.3 by 0.3 by 0.1 cm. The surgical margin is inked blue. The specimen is sectioned into 2 pieces and submitted entirely in a single cassette. Due to shrinkage, measurements may be different than those at the time of procedure. D. Received in a formalin-containing bottle is a superficial fragment of pale [place], and finely scaling skin measuring 0.7 by 0.5 by 0.1 cm. The surgical margin is inked blue. The specimen bears a flat, brown, well-circumscribed area measuring 0.3 by 0.3 cm. The specimen is sectioned into 2 pieces and submitted entirely in a single cassette. Due to shrinkage, measurements may be different than those at the time of procedure. otilia/dxv ICD-9 ZSD.877 Clerical Data A; 91028 B; 25996 C; 57870 D; 94446 The characteristics of special, immunohistochemical, and immunofluorescence stains and in-situ hybridization tests performed by the [facility] were deemed acceptable in ongoing quality control operator measures and in compliance with regulations drawn from the Clinical Laboratory Improvement Act ro5394 (CLIA '88). Control reactions for all stains performed were deemed adequate and appropriate by a pathologist prior to evaluation of patient tissue. Some diagnoses were rendered with the assistance of laboratory-developed tests utilizing analyte-specific reagents; the performance characteristic of these tests were determined by [facility] and are not cleared or approved by the US Food an Drug administration. Laboratory developed test may only be performed in a facility that is certified by the [facility] as a high-complexity laboratory under CLIA '88. These tests are used for clinical purposes and are not investigational. Notinfile Unknown LAB PATHOLOGY ORDERABLES Final Result from Last 3 Months Insurance MEDICARE [facility] MEDICARE [facility] MEDICARE [facility] Care Teams Electrical And Instrumentation Manager Relationship Specialty Start Date End Date Jacky Lee MD [address] [facility] [address] [place] [address] PCP - General 06/20/13
--- OUTSIDE RECORDS SUMMARY | 2024-12-08 15:35 | XMS_ITS | Referral Summary ---
Author Organization [facility] at the [facility] Address [address] [place] [address] Care Team Providers Care Sales Agent Business Services Name Role Phone Jacky Lee MD Primary Care Provider [phone] Encounters Date Type Department Care Team Description 11/30/2024 Orders Only [facility] [address] [place] [address] Unknown, Notinfile 10/18/2024 3:00 PM CDT Office Visit [facility] Neurology [address] [facility] [place] [address] [place] [phone] Erik Babin Si, MD Dystonia (Primary [...] TO BOTH NOSTRILS EVERY 12 HOURS 10/20/19 Active cholecalciferol, vitamin D3, 1,000 unit tablet,chewable Take by mouth Active topiramate (Topamax) 100 mg tablet Take 1 tablet (100 mg total) by mouth 3 (three) times a day 90 tablet 10/19/19 Active carBAMazepine (TEGretol) 200 mg tabletIndications: Psychogenic nonepileptic seizure Take 1 tablet (200 mg total) by mouth 3 (three) times a day 90 tablet 10/19/19 Active rizatriptan RESEARCH MANAGEMENT ASSOCIATE (MAXALT-RESEARCH MANAGEMENT ASSOCIATE) 10 mg disintegrating tabletIndications: Migraine without aura and without status migrainosus, not intractable Take 1 tablet (10 mg total) by mouth as needed for migraine May repeat in 2 hours if unresolved. Do not exceed 30 mg in 24 hours. 9 tablet 10/19/19 Active Active Problems Problem Noted Date Diagnosed Date Sensation of fullness in both ears 08/22/2024 Assessment & Plan (08/22/2024 7:22 PM SACK SORTER): Both ears have a normal exam. She [...] 08/22/2024 Assessment & Plan (08/22/2024 7:23 PM SACK SORTER): She does have normal hearing test and [...] 08/22/2024 Assessment & Plan (08/22/2024 7:24 PM SACK SORTER): She has been using Afrin nasal spray [...] 02/15/2021 Assessment & Plan (08/22/2024 7:33 PM SACK SORTER): This could be responsible for the periods [...] 07/05/2020 Assessment & Plan (07/05/2020 10:02 AM SACK SORTER): Patient has very mild non flow-limiting stenosis left subclavian artery. Noninvasive arterial studies and CT a are essentially normal. Her symptoms do not correlate with left subclavian stenosis and or subclavian steal. From my standpoint no need for further vascular workup. Follow-up with me on a p.r.n. basis. Tachycardia 07/05/2020 Assessment & Plan (07/05/2020 10:04 AM SACK SORTER): Patient has intermittent tachycardia. Recent Holter monitor [...] syndrome Assessment & Plan (07/05/2020 10:03 AM SACK SORTER): Currently controlled medical therapy. Arthralgia of shoulder [...] on file Legal Sex Female 2:46 PM SACK SORTER Gender Identity Not on file Sexual Orientation Not on file Last Filed Vital Signs Vital Sign Reading Time Taken Comments Blood Pressure 142/78 10/18/2024 3:01 PM CDT Pulse 77 10/18/2024 3:01 PM CDT Temperature 36 C (96.8 F) 10/17/2022 1:19 PM CDT Respiratory Rate 18 08/17/2024 3:45 PM SACK SORTER Oxygen Saturation 99% 10/17/2022 1:19 PM CDT Inhaled Oxygen Concentration - - Weight 63.5 kg (140 lb) 10/18/2024 3:01 PM CDT Height 170.2 cm (5' 7 ) 10/18/2024 3:01 PM CDT Body Mass Index 21.93 10/18/2024 3:01 PM CDT Plan of Treatment Not on file Procedures Procedure Name Priority Date/Time Associated Diagnosis Comments SURGICAL PATHOLOGY Routine 11/30/2024 12 :00 AM CDT from Last 3 Months Results * Surgical pathology (11/30/2024 12:00 AM CDT) Skin, shave biopsy 11/30/2024 12/01/2024 6:38 AM CDT Narrative 12/02/2024 4:11 PM CDT EPIC results best viewed via link to PDF [facility] [address] [place] [address], [address], [place] [address] [email or web address] Note to Patients: This report may contain [...] REPORTED: 12/02/2024 Submitting Physician Information: Greta Crews, [facility], [address] [place] [address], DERMATOPATHOLOGY REPORT RESULTS DIAGNOSIS: A. SKIN, SUPERIOR [...] procedure. otilia/dxv ICD-9 ZSD.877 Clerical Data A; 18280 B; 48428 C; 06404 D; 59211 The characteristics of special, immunohistochemical, and immunofluorescence stains and in-situ hybridization tests performed by the [facility] were deemed acceptable in ongoing quality control supervisor measures and in compliance with regulations drawn from the Clinical Laboratory Improvement Act pu7744 (CLIA '88). Control reactions for all stains performed were deemed adequate and appropriate by a pathologist prior to evaluation of patient tissue. Some diagnoses were rendered with the assistance of laboratory-developed tests utilizing analyte-specific reagents; the performance characteristic of these tests were determined by [facility] and are not cleared or approved by the [place] Food an Drug administration. Laboratory developed test may only be performed in a facility that is certified by the [facility] as a high-complexity laboratory under CLIA '88. These tests are used for clinical purposes and are not investigational. us Notinfile Unknown LAB PATHOLOGY ORDERABLES Final Result from Last 3 Months Insurance MEDICARE ON LICENSE OF [facility] MEDICARE ON LICENSE OF [facility] MEDICARE ON LICENSE OF [facility] Care Teams Sales Agent Business Services Relationship Specialty Start Date End Date Jacky Lee MD [address] [place] [address] PCP - General 06/20/13
== END 2024-12-08 15:31 | disposition home or self-care (01) ==
LOC: ANHIMG 15:32
PROVIDERS: PCP Internal Medicine; Visit Provider Obstetrics & Gynecology
DX: Z12.31 Encounter for screening mammogram for malignant neoplasm of breast (principal)
CPT/HCPCS: 77063; 77067

== ENCOUNTER 2025-01-31 06:53 | Outpatient (CLI) | payer MEDICARE, SELFPAY ==
--- NOTE | ~2025-01-31 | CT_ITS ---
CT ANGIOGRAM NECK AND HEAD History: Other specified symptoms and signs involving circulatory and respiratory system. Technique: Axial noncontrast imaging of the brain was performed. Serial spiral axial images through t he head and neck were then obtained during arterial phase IV injection of 100 cc of Omnipaque 350. 3- D postprocessing and MIP images were then reconstructed on the remote workstation. Dose reduction sofia hnique was used on this scan by utilizing automated exposure control and iterative reconstruction sofia hnique. The dose-length product (DLP) was 1463.26 mGy-cm. CTA neck findings: Timing of the contrast bolus is somewhat suboptimal. Bilateral vertebral are as a ppear patent. Bilateral common carotid, internal carotid, and external carotid arteries appear patent . No large vessel occlusion or stenosis seen. No aneurysm seen. The proximal right internal carotid a rtery demonstrates 0% stenosis relative to the normal distal artery lumen diameter. The proximal left internal carotid artery demonstrates 0% stenosis relative to the normal distal artery lumen diameter . CTA head findings: Distal vertebral arteries, basilar artery, and posterior cerebral arteries are pat ent. Distal internal carotid arteries, middle cerebral arteries, and anterior cerebral arteries are p atent. No large vessel occlusion or stenosis. No aneurysm. Axial noncontrast imaging of the brain is unremarkable. No acute infarct, intracranial hemorrhage, or mass lesion seen. No mass effect or midline shift. Henry-white differentiation intact. Ventricles and subarachnoid spaces are unremarkable. Orbits are unremarkable. Paranasal sinuses and mastoid air ruth ann ls are clear. Calvarium intact. Impression: No significant abnormality seen. Reviewed, dictated and finalized at location . Impression: No significant abnormality seen.
--- OUTSIDE RECORDS SUMMARY | 2025-01-31 06:56 | XMS_ITS | Encounter Summary ---
Author Organization [facility] Address [address] [place] [address] Care Team Providers Care Concrete Batch Plant Operator Name Role Phone Jacky Lee MD Primary Care Provider [phone] Reason for Visit * Reason Onset Date Comments Appointment 10/17/2024 Encounter Details Date Type Department Care Team (Late st Contact Info) Description 10/17/2024 Telephone [facility] - Centralized Scheduling [address] [place] [address] Ese Peters MD [address] [facility] [place] [address] Appointment Social History Tobacco Use [...] on file Legal Sex Female 6:14 AM RAILWAY EQUIPMENT OPERATOR Gender Identity Not on file Sexual [...] would toreschedule, please Patient Call Back Number: [phone] documented in this encounter Plan of Treatment Upcoming Encounters Date Type Department Care Team (Late st Contact Info) Description 04/10/2025 1:20 PM CDT Office Visit [facility] - Rheumatology [address] [place] [address], [place] [address] Ahsan Hdz MD [address] [place] [address] [address] [place] [phone] documented as of this encounter Visit Diagnoses Not on filedocumented in this encounter Care Teams Concrete Batch Plant Operator Relationship Specialty Start Date End Date Jacky Lee MD [address] [facility] [address] [place] [phone] PCP - General Internal Medicine 06/10/19 documented as of this encounter
--- OUTSIDE RECORDS SUMMARY | 2025-01-31 06:56 | XMS_ITS | Encounter Summary ---
Author Organization [facility] Address [address] [place] [address] Care Team Providers Care Live Study Manager Name Role Phone Jacky Lee MD Primary Care Provider [phone] Reason for Visit * Reason Onset Date Comments MEDICATION REFILL 04/07/2023 Encounter Details Date Type Department Care Team (Late st Contact Info) Description 04/07/2023 Refill [facility] - Rheumatology [address] [place] [address], [facility] [place] [address] Ahsan Hdz MD [address] [place] [address] [place] [address] MEDICATION REFILL Social History Tobacco [...] on file Legal Sex Female 6:14 AM COLLECTION TEAM LEAD Gender Identity Not on file Sexual Orientation Not on file Occupation Industry Job Start Date Job End Date disabled Not on file Not on file Not on file documented as of this encounter Plan of Treatment Upcoming Encounters Date Type Department Care Team (Late st Contact Info) Description 04/10/2025 1:20 PM CDT Office Visit [facility] - Rheumatology [address] [place] [address], [place] [phone] Ahsan Hdz MD [address] [place] [address] [place] [address] documented as of this encounter 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
--- OUTSIDE RECORDS SUMMARY | 2025-01-31 06:56 | XMS_ITS | Referral Summary ---
Author Organization [facility] at the [facility] Office Center Address [address] [place] [address] Care Team Providers Care Front Man Name Role Phone Jacky Lee MD Primary Care Provider [phone] Encounters Date Type Department Care Team Description 11/30/2024 Orders Only [facility] [address] [place] [address] Unknown, Notinfile from Last 3 Months Allergies Active Allergy [...] (three) times a day 90 tablet 11 04/01/20 25 04/01/2 026 Active carBAMazepine (TEGretol) 200 mg tabletIndications: Psychogenic nonepileptic seizure Take 1 tablet (200 mg total) by mouth 3 (three) times a day 90 tablet 10/19/19 Active rizatriptan SUPERVISOR MATTRESS AND BOXSPRINGS (MAXALT-SUPERVISOR MATTRESS AND BOXSPRINGS) 10 mg disintegrating tabletIndications: Migraine without aura [...] 08/22/2024 Assessment & Plan (08/22/2024 7:22 PM LABORATORY MONITOR): Both ears have a normal exam. She [...] 08/22/2024 Assessment & Plan (08/22/2024 7:23 PM LABORATORY MONITOR): She does have normal hearing test and [...] 08/22/2024 Assessment & Plan (08/22/2024 7:24 PM LABORATORY MONITOR): She has been using Afrin nasal spray [...] 02/15/2021 Assessment & Plan (08/22/2024 7:33 PM LABORATORY MONITOR): This could be responsible for the periods [...] 07/05/2020 Assessment & Plan (07/05/2020 10:02 AM LABORATORY MONITOR): Patient has very mild non flow-limiting stenosis left subclavian artery. Noninvasive arterial studies and CT a are essentially normal. Her symptoms do not correlate with left subclavian stenosis and or subclavian steal. From my standpoint no need for further vascular workup. Follow-up with me on a p.r.n. basis. Tachycardia 07/05/2020 Assessment & Plan (07/05/2020 10:04 AM LABORATORY MONITOR): Patient has intermittent tachycardia. Recent Holter monitor [...] syndrome Assessment & Plan (07/05/2020 10:03 AM LABORATORY MONITOR): Currently controlled medical therapy. Arthralgia of shoulder [...] on file Legal Sex Female 2:46 PM LABORATORY MONITOR Gender Identity Not on file Sexual Orientation Not on file Last Filed Vital Signs Vital Sign Reading Time Taken Comments Blood Pressure 142/78 10/18/2024 3:01 PM CDT Pulse 77 10/18/2024 3:01 PM CDT Temperature 36 C (96.8 F) 10/17/2022 1:19 PM CDT Respiratory Rate 18 08/17/2024 3:45 PM LABORATORY MONITOR Oxygen Saturation 99% 10/17/2022 1:19 PM CDT Inhaled Oxygen Concentration - - Weight 63.5 kg (140 lb) 10/18/2024 3:01 PM CDT Height 170.2 cm (5' 7) 10/18/2024 3:01 PM CDT Body Mass Index [...] results best viewed via link to PDF [facility] [address] [place] [address], [address], [place] [address] [email or web address] Note to Patients: This report [...] 12/01/2024 REPORTED: 12/02/2024 Submitting Physician Information: Greta Crews CARE ADMINISTRATIVE TECH- [facility], [address] [place] [address], DERMATOPATHOLOGY REPORT RESULTS DIAGNOSIS: A. SKIN, SUPERIOR [...] procedure. otilia/dxv ICD-9 ZSD.877 Clerical Data A; 52967 B; 56371 C; 07237 D; 08132 The characteristics of special, immunohistochemical, and immunofluorescence stains and in-situ hybridization tests performed by the [facility] were deemed acceptable in ongoing quality review specialist measures and in compliance with regulations drawn from the Clinical Laboratory Improvement Act [id number] (CLIA '88). Control reactions for all stains performed were deemed adequate and appropriate by a pathologist prior to evaluation of patient tissue. Some diagnoses were rendered with the assistance of laboratory-developed tests utilizing analyte-specific reagents; the performance characteristic of these tests were determined by [facility] and are not cleared or approved by the US Food an Drug administration. Laboratory developed test may only be performed in a facility that is certified by the [facility] as a high-complexity laboratory under CLIA '88. These tests are used for clinical purposes and are not investigational. us Notinfile Unknown LAB PATHOLOGY ORDERABLES Final Result from Last 3 Months Insurance MEDICARE [facility] MEDICARE [facility] MEDICARE [facility] Care Teams Front Man Relationship Specialty Start Date End Date Jacky Lee MD [address] [place] [address] PCP - General 06/20/13
--- OUTSIDE RECORDS SUMMARY | 2025-01-31 06:56 | XMS_ITS | Clinical Summary ---
Author Organization [facility] Address [address] [place] [address] Care Team Providers Care Network Internship Name Role Phone Jacky Lee MD Primary Care Provider [phone] Source Comments [facility],non-owned Affiliates and Associated Physician Practices is amultiple site organization consisting of ambulatory clinics and hospital sitesin [place], [place], [place] and [place]. This disclosure is being madepursuant to the Care Everywhere program and may not contain all information available regarding this patient. Last updated 18.[facility] Allergies Active Allergy Reactions Criticality Noted Date Comments Adhesive Sensitivity Rash Low 07/31/2010 Sulfamethoxazole W-Trimethoprim Urticaria Medium 10/11/2018 Butorphanol Anaphylaxis High 07/30/2010 Certolizumab Pegol Urticaria 08/23/2015 Gentamicin Urticaria 07/30/2010 Nitrofurantoin Urticaria,Other Medium 10/11/2018 Welts Meperidine Nausea and/or Vomiting 07/30/2010 Methocarbamol Other Medium 06/16/2016 Moxifloxacin Nausea and/or Vomiting 07/30/2010 Prochlorperazine MEDICAL BILLING CODER Dysfunction 07/30/2010 Nothing for nausea except zofran [...] once daily Active diphenhydrAMINE (BENADRYL) 50 MG capsuleIndicati ons:Pruritus Take 1 (one) capsule by mouth at bedtime Reasons: Itching Active omeprazole (PRILOSEC) 40 MG capsule Take 1 (one) capsule by mouth 2 times daily, before breakfast and supper Active folic acid (FOLVITE) 1 MG tablet Take 1 (one) tablet by mouth once daily 9 Active dicyclomine (BENTYL) 10 MG capsule Take 1 (one) capsule by mouth 3 times daily as needed 9 Active carBAMazepine (TEGRETOL) 200 MG tablet Take 1 (one) tablet by mouth 3 times daily 9 Active magnesium Cl-Calcium Carbonate (Slow-Mag) 71.5 mg9 MG tablet Take 1 (one) tablet by mouth once daily Active Apremilast (OTEZLA) 30 MGIndications:B ehcet's disease (HCC) Take 1 tablet by mouth 2 times daily 180 tablet 3 0 Active topiramate (TOPAMAX) 200 MG tablet TK 1 T PO TID 0 Active naltrexone 3 mg/ml compd solution Take 1 mL by mouth once daily Active dilTIAZem coated beads 24hr (CARDIZEM CD) 360 MG capsule Take 1 (one) capsule by mouth once daily 1 Active tiZANidine (Zanaflex) 4 MG tablet Take 1 (one) tablet by mouth every 8 hours as needed 2 Active rizatriptan, disintegrating, (Maxalt CUSTOMER SERVICE DRIVER) 10 MG tablet Take 1 (one) tablet by mouth as directed 2 Active pravastatin (Pravachol) 80 MG tablet Take 1 (one) tablet by mouth once daily 4 Active polyethylene glycol 3350 (Miralax) 17 GM/SCOOP powder Take 17 (seventeen) g by mouth once daily Active azelastine (Astelin) 0.1 % nasal spray [place] 1 (one) spray into each nostril once daily Active cefdinir (Omnicef) 300 MG capsule Take 1 (one) capsule by mouth every 12 hours 5 Active Cholecalciferol 25 MCG (1000 UT) Take by mouth Active colchicine 0.6 MG tabletIndicatio ns:Behcet's disease (HCC) TAKE 1 TABLET BY MOUTH TWICE DAILY 180 tablet 1 5 Active meloxicam (Mobic) 15 MG tabletIndicatio ns:Neck pain TAKE 1 TABLET BY MOUTH EVERY DAY 90 tablet 3 5 Active Active Problems Problem Noted Date Diagnosed Date Vitamin deficiency 10/12/2018 Vitamin D deficiency 10/12/2018 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 Spasm of muscle Bladder pain Encounters Date Type Department Care Team Description 12/09/2024 Refill [facility] - Rheumatology [address] [place] [phone] Ahsan Hdz MD Refill Request 12/06/2024 Refill [facility] - Rheumatology [address] [place] [phone] Ahsan Hdz MD Refill Request 11/24/2024 Telephone [facility] - Ophthalmology [address] [place] [phone] Ese Peters MD [facility]; Appointment 11/21/2024 Telephone [facility] Ophthalmology [address] [place] [phone] Ese Peters MD Appointment 11/14/2024 Telephone [facility]hthalmology [address] [place] [phone] Ese Peters MD Appointment from Last 3 Months Immunizations Immunization Administration [...] on file Legal Sex Female 6:14 AM ORTHODONTIC BAND MAKER Gender Identity Not on file Sexual Orientation [...] CDT Respiratory Rate 18 07/23/2017 2:23 PM ORTHODONTIC BAND MAKER Oxygen Saturation 97% 09/28/2023 2:08 PM CDT Inhaled Oxygen Concentration - - Weight 64.5 kg (142 lb 4.8 oz) 10/10/2024 1:08 P M CDT Height 170.2 cm (5' 7) 10/10/2024 1:08 PM CDT Body Mass Index 22.29 10/10/2024 1:08 PM CDT Plan of Treatment Upcoming Encounters Date Type Department Care Team (Late st Contact Info) Description 04/10/2025 1:20 PM CDT Office Visit [facility] - Rheumatology [address] [place] [address], [place] [phone] Ahsan Hdz MD [address] [place] [address] [place] [address] Health Maintenance Due Date Last Done Comments [...] of 2) 10/24/2013 COVID-19 VACCINE (4 - season) 2024 03/09/2021, 10/11/2020, 09/20/2020 DEPRESSION SCREENING 07/20/2024 INFLUENZA VACCINE (#1) 2025 , 04/10/2021, 05/06/2020, Additional history exists Respiratory Syncytial [...] Comment: REPORT COMMENT: FASTING:NO Test Performed at: [facility] [address] [facility] [place] [address] JAVIER VIZCARRA DO,MPH 03/16/2017 11:0 7 AM CDT 03/16/2017 11:08 AM CDT Pat Amaya MD LAB - CHEMISTRY ORDERABLES Final Result [facility] A) [address] from Last 3 Months or Most Recently Relevant to Health Maintenance Insurance [facility] MEDICARE MEDICARE Advance Directives * FULL RESUSCITATION (Latest Code Status on File) Date Activated Date Inactivated Comments 09/21/2012 11:48 PM 09/23/2012 1:49 PM Care Teams Network Internship Relationship Specialty Start Date End Date Jacky Lee MD [address] [facility] [address] [place] [address] PCP - General Internal Medicine 06/10/19
--- OUTSIDE RECORDS SUMMARY | 2025-01-31 06:56 | XMS_ITS | Encounter Summary ---
Author Organization [facility] Address [address] [place] [address] Care Team Providers Care Commercial Insulator Name Role Phone Jacky Lee MD Primary Care Provider [phone] Reason for Visit * Reason Onset Date Comments Reschedule Appointment 03/23/2024 Encounter Details Date Type Department Care Team (Late st Contact Info) Description 03/23/2024 Telephone [facility] Ophthalmology [address] [place] [phone] Ese Peters MD [address] [place] [address] [place] [address] Reschedule Appointment Social History Tobacco [...] on file Legal Sex Female 6:14 AM GRAND SCRIBE Gender Identity Not on file Sexual Orientation [...] Office Visit [facility] - Rheumatology [address] [place] [address], [place] [address] Ahsan Hdz MD [address] [place] [address] [place] [address] documented as of this encounter Visit Diagnoses Not on filedocumented in this encounter Care Teams Commercial Insulator Relationship Specialty Start Date End Date Jacky Lee MD [address] [facility] [address] [facility] [address] [place] [phone] PCP - General Internal Medicine 06/10/19 documented as of this encounter
--- OUTSIDE RECORDS SUMMARY | 2025-01-31 06:56 | XMS_ITS | Encounter Summary ---
Author Organization [facility] Address [address] [facility] [place] [address] Care Team Providers Care Contract Designer Name Role Phone Jacky Lee MD Primary Care Provider [phone] Reason for Visit * Reason Onset Date Comments MEDICATION REFILL 08/22/2020 Encounter Details Date Type Department Care Team (Late st Contact Info) Description 08/22/2020 Refill [facility] [address] [place] [address], [place] [address] Ahsan Hdz MD [address] [place] [address] [place] [address] MEDICATION REFILL Social History Tobacco Use Types Packs/Day Years Used Date Smoking Tobacco: Former Cigarettes 0.3 20 Smokeless Tobacco: Never Alcohol Use Standard Drinks/Week Comments No 0 (1 standard drink = 0.6 oz pur e alcohol) Comments No Sex and Gender Information Value Date Recorded Sex Assigned at Not on file Legal Sex Female 6:14 AM CRISIS MANAGER Gender Identity Not on file Sexual [...] ??? Moxifloxacin Nausea and/or Vomiting ??? Prochlorperazine APPLICATION TECHNICIAN Dysfunction Nothing for nausea except zofran ??? [...] ??? vitamin D, ergocalciferol, (DRISDOL) 1.25 MG (00827 UT) capsule 4 capsule 0 Sig: TAKE 1 CAPSULE BY MOUTH ONCE WEEKLY DIRECTED IS MANAGER documented in this encounter Plan of Treatment Upcoming Encounters Date Type Department Care Team (Late st Contact Info) Description 04/10/2025 1:20 PM CDT Office Visit [facility] - Rheumatology [address] [place] [address], [place] [address] Ahsan Hdz MD [address] [place] [address] [address] [place] [address] documented as of this encounter Visit Diagnoses Not on filedocumented in this encounter Care Teams Contract Designer Relationship Specialty Start Date End Date Jacky Lee MD [address] [facility] [address] [facility] [address] [place] [address] PCP - General Internal Medicine 06/10/19 documented as of this encounter
--- OUTSIDE RECORDS SUMMARY | 2025-01-31 06:56 | XMS_ITS | Encounter Summary ---
Author Organization [facility] Address [address] [facility] [place] [address] Care Team Providers Care Repairer Art Objects Name Role Phone Jacky Lee MD Primary Care Provider [phone] Jacky Lee MD Primary Care Provider [phone] Reason for Visit * Reason Onset Date Comments MEDICATION REFILL 09/21/2018 Encounter Details Date Type Department Care Team (Late Contact Info) Description 09/21/2018 Refill [facility] - Rheumatology [address] [place] [address] Ahsan Hdz MD [address] [place] [phone] MEDICATION REFILL Social History Tobacco Use Types Packs/Day Years Used Date Smoking Tobacco: Former Cigarettes 0.3 20 Smokeless Tobacco: Never Alcohol Use Standard Drinks/Week Comments No 0 (1 standard drink = 0.6 oz pur e alcohol) Comments No Sex and Gender Information Value Date Recorded Sex Assigned at Not on file Legal Sex Female 6:14 AM PRODUCTION CLERKS SUPERVISOR Gender Identity Not on file Sexual Orientation Not on file Occupation Industry Job Start Date Job End Date disabled Not on file Not on file Not on file documented as of this encounter Plan of Treatment Upcoming Encounters Date Type Department Care Team (Late Contact Info) Description 04/10/2025 1:20 PM CDT Office Visit [facility] - Rheumatology [address] [place] [address], [place] [address] Ahsan Hdz MD [address] [place] [address] [place] [address] documented as of this encounter Visit Diagnoses Not on filedocumented in this encounter Care Teams Repairer Art Objects Relationship Specialty Start Date End Date Jacky Lee MD [address] [place] [address] [place] [address] PCP - General 11/11/07 06/09/19 Jacky Lee MD [address] [place] [address] [place] [address] PCP - General Internal Medicine 06/10/19 documented as of this encounter
--- OUTSIDE RECORDS SUMMARY | 2025-01-31 06:56 | XMS_ITS | Clinical Summary ---
Author Organization [facility] at the [facility] Office Center Address [address] [place] [address] Care Team Providers Care Screen Printer Name Role Phone Jacky Lee MD Primary Care Provider [phone] Allergies Active Allergy Reactions Criticality Noted Date [...] 90 tablet 11 10/19/19 026 Active rizatriptan OFFENDER JOB RETENTION SPECIALIST (MAXALT-OFFENDER JOB RETENTION SPECIALIST) 10 mg disintegrating tabletIndications: Migraine without aura [...] 08/22/2024 Assessment & Plan (08/22/2024 7:22 PM MODEL AND DYE PERSON): Both ears have a normal exam. She [...] 08/22/2024 Assessment & Plan (08/22/2024 7:23 PM MODEL AND DYE PERSON): She does have normal hearing test and [...] 08/22/2024 Assessment & Plan (08/22/2024 7:24 PM MODEL AND DYE PERSON): She has been using Afrin nasal spray [...] 02/15/2021 Assessment & Plan (08/22/2024 7:33 PM MODEL AND DYE PERSON): This could be responsible for the periods [...] 07/05/2020 Assessment & Plan (07/05/2020 10:02 AM MODEL AND DYE PERSON): Patient has very mild non flow-limiting stenosis left subclavian artery. Noninvasive arterial studies and CT a are essentially normal. Her symptoms do not correlate with left subclavian stenosis and or subclavian steal. From my standpoint no need for further vascular workup. Follow-up with me on a p.r.n. basis. Tachycardia 07/05/2020 Assessment & Plan (07/05/2020 10:04 AM MODEL AND DYE PERSON): Patient has intermittent tachycardia. Recent Holter monitor [...] syndrome Assessment & Plan (07/05/2020 10:03 AM MODEL AND DYE PERSON): Currently controlled medical therapy. Arthralgia of shoulder [...] Orders Only [facility] [address] [place] [address] Unknown, Notinfile from Last 3 Months Immunizations Immunization Administration [...] on file Legal Sex Female 2:46 PM MODEL AND DYE PERSON Gender Identity Not on file Sexual Orientation Not on file Obstetrics History Last Filed Vital Signs Vital Sign Reading Time Taken Comments Blood Pressure 142/78 10/18/2024 3:01 PM CDT Pulse 77 10/18/2024 3:01 PM CDT Temperature 36 C (96.8 F) 10/17/2022 1:19 PM CDT Respiratory Rate 18 08/17/2024 3:45 PM MODEL AND DYE PERSON Oxygen Saturation 99% 10/17/2022 1:19 PM CDT [...] PDF [facility] [facility], [address], [place] [address] [email or web address] Note to Patients: This report may contain [...] REPORTED: 12/02/2024 Submitting Physician Information: Greta Crews [facility], [address] [place] [address], DERMATOPATHOLOGY REPORT RESULTS DIAGNOSIS: A. SKIN, SUPERIOR [...] procedure. otilia/dxv ICD-9 ZSD.877 Clerical Data A; 75241 B; 26006 C; 45876 D; 75952 The characteristics of special, immunohistochemical, and immunofluorescence stains and in-situ hybridization tests performed by the [facility] were deemed acceptable in ongoing quality control auditor measures and in compliance with regulations drawn from the Clinical Laboratory Improvement Act [id number] (CLIA '88). Control reactions for all stains performed were deemed adequate and appropriate by a pathologist prior to evaluation of patient tissue. Some diagnoses were rendered with the assistance of laboratory-developed tests utilizing analyte-specific reagents; the performance characteristic of these tests were determined by [facility] and are not cleared or approved by the US Food an Drug administration. Laboratory developed test may only be performed in a facility that is certified by the [facility] as a high-complexity laboratory under CLIA '88. These tests are used for clinical purposes and are not investigational. us Notinfile Unknown LAB PATHOLOGY ORDERABLES Final Result from Last 3 Months Insurance MEDICARE [facility] MEDICARE MEDICARE [facility] Care Teams Screen Printer Relationship Specialty Start Date End Date Jacky Lee MD [address] [facility] [address] [facility] [address] [place] [address] PCP - General 06/20/13
[2025-01-31 07:23] LABS: Estimated Glomerular Filt Rate 50
== END 2025-01-31 06:54 | disposition home or self-care (01) ==
PROVIDERS: PCP Internal Medicine; Visit Provider Internal Medicine
DX: R09.89 Other specified symptoms and signs involving the circulatory and respiratory systems (principal); I77.1 Stricture of artery
CPT/HCPCS: 70496; 70498; Q9967

== ENCOUNTER 2025-02-13 13:48 | Outpatient (CLI) | payer MEDICARE, SELFPAY ==
--- OUTSIDE RECORDS SUMMARY | 2025-02-13 13:50 | XMS_ITS | Encounter Summary ---
Author Organization [facility] Address [address] [facility] [place] [address] Care Team Providers Care Rehabilitation Aide/Scheduler Name Role Phone Jacky Lee MD Primary Care Provider [phone] Reason for Visit * Reason Onset Date Comments MEDICATION REFILL 04/07/2023 Encounter Details Date Type Department Care Team (Late st Contact Info) Description 04/07/2023 Refill [facility] - Rheumatology [address] [place] [address], [facility] [place] [address] Ahsan Hdz MD [address] [place] [address] [place] [address] MEDICATION REFILL Social History Tobacco [...] on file Legal Sex Female 6:14 AM TOOL OR DIE DRAWING CHECKER Gender Identity Not on file Sexual Orientation Not on file Occupation Industry Job Start Date Job End Date disabled Not on file Not on file Not on file documented as of this encounter Plan of Treatment Upcoming Encounters Date Type Department Care Team (Late st Contact Info) Description 04/10/2025 1:20 PM CDT Office Visit [facility] - Rheumatology [address] [place] [address], [place] [phone] Ahsan Hdz MD [address] [place] [address] [place] [address] documented as of this encounter Visit Diagnoses Diagnosis Behcet's disease (HCC) Behcet's syndrome documented in this encounter Care Teams Rehabilitation Aide/Scheduler Relationship Specialty Start Date End Date Jacky Lee MD [address] [facility] [address] [place] [address] PCP - General Internal Medicine 06/10/19 documented as of this encounter
--- OUTSIDE RECORDS SUMMARY | 2025-02-13 13:50 | XMS_ITS | Clinical Summary ---
Author Organization [facility] [employer] Address [address] [place] [address] Care Team Providers Care Site Auditor Name Role Phone Jacky Lee MD Primary Care Provider [phone] Source Comments [facility],non-owned Affiliates and Associated Physician Practices is amultiple site organization consisting of ambulatory clinics and hospital sitesin [place], [place], [place] and [place]. This disclosure is being madepursuant to the Care Everywhere program and may not contain all information available regarding this patient. Last updated 18.[facility] [employer] Allergies Active Allergy Reactions Criticality Noted Date Comments Adhesive Sensitivity Rash Low 07/31/2010 Sulfamethoxazole W-Trimethoprim Urticaria Medium 10/11/2018 Butorphanol Anaphylaxis High 07/30/2010 Certolizumab Pegol Urticaria 08/23/2015 Gentamicin Urticaria 07/30/2010 Nitrofurantoin Urticaria,Other Medium 10/11/2018 Welts Meperidine Nausea and/or Vomiting 07/30/2010 Methocarbamol Other Medium 06/16/2016 Moxifloxacin Nausea and/or Vomiting 07/30/2010 Prochlorperazine OUTSIDE MAINTENANCE WORKER Dysfunction 07/30/2010 Nothing for nausea except zofran [...] as needed 2 Active rizatriptan, disintegrating, (Maxalt ELECTRONICS TECHNOLOGY DEPARTMENT CHAIR) 10 MG tablet Take 1 (one) tablet by mouth as directed 2 Active pravastatin (Pravachol) 80 MG tablet Take 1 (one) tablet by mouth once daily 4 Active polyethylene glycol 3350 (Miralax) 17 GM/SCOOP powder Take 17 (seventeen) g by mouth once daily Active azelastine (Astelin) 0.1 % nasal spray [place] 1 (one) spray into each nostril once [...] 12/09/2024 Refill [facility] - Rheumatology [address] [place] [phone] Ahsan Hdz MD Refill Request 12/06/2024 Refill [facility] Rheumatology [address] [place] [phone] Ahsan Hdz MD Refill Request 11/24/2024 Telephone [facility] - Ophthalmology [address] [place] [phone] Ese Peters MD [facility]; Appointment 11/21/2024 Telephone [facility] Ophthalmology [address] [place] [phone] Ese Peters MD Appointment 11/14/2024 Telephone [facility]mology [address] [place] [phone] Ese Peters MD Appointment from Last 3 [...] on file 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 Gender Identity Not on file Sexual Orientation [...] CDT Respiratory Rate 18 07/23/2017 2:23 PM BAG FILLER Oxygen Saturation 97% 09/28/2023 2:08 PM CDT [...] Office Visit [facility] - Rheumatology [address] [place] [address], [place] [phone] Ahsan Hdz MD [address] [place] [address] [place] [address] Health Maintenance Due Date Last [...] Comment: REPORT COMMENT: FASTING:NO Test Performed at: [facility] [address] [facility] [place] [address] JAVIER VIZCARRA DO,MPH 03/16/2017 11:0 7 AM CDT 03/16/2017 11:08 AM CDT Pat Amaya MD LAB - CHEMISTRY ORDERABLES Final Result [facility] Z) [address] from Last 3 Months or Most Recently Relevant to Health Maintenance Insurance [facility] MEDICARE MEDICARE Advance Directives * FULL RESUSCITATION (Latest Code Status on File) Date Activated Date Inactivated Comments 09/21/2012 11:48 PM 09/23/2012 1:49 PM Care Teams Site Auditor Relationship Specialty Start Date End Date Jacky Lee MD [address] [facility] [address] [place] [address] PCP - General Internal Medicine 06/10/19
--- OUTSIDE RECORDS SUMMARY | 2025-02-13 13:50 | XMS_ITS | Encounter Summary ---
Author Organization [facility] Address [address] [facility] [place] [address] Care Team Providers Care Copper Miner Blasting Name Role Phone Jacky Lee MD Primary Care Provider Reason for Visit * Reason Onset Date Comments Appointment 10/17/2024 Encounter Details Date Type Department Care Team (Late st Contact Info) Description 10/17/2024 Telephone [facility] - Centralized Scheduling [address] [place] [address] Ese Peters MD [address] [facility] DEPT [place] [address] Appointment Social History Tobacco Use [...] on file 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 Gender Identity Not on file Sexual Orientation [...] would toreschedule, please Patient Call Back Number: [phone] documented in this encounter Plan of Treatment Upcoming Encounters Date Type Department Care Team (Late st Contact Info) Description 04/10/2025 1:20 PM CDT Office Visit [facility] - Rheumatology [address] [place] [address], [place] [address] Ahsan Hdz MD [address] [place] [address] 2L [place] [phone] documented as of this encounter Visit Diagnoses Not on filedocumented in this encounter Care Teams Copper Miner Blasting Relationship Specialty Start Date End Date Jacky Lee MD [address] [facility] [address] [place] [phone] PCP - General Internal Medicine 06/10/19 documented as of this encounter
--- OUTSIDE RECORDS SUMMARY | 2025-02-13 13:50 | XMS_ITS | Encounter Summary ---
Author Organization [facility] Address [address] [facility] [place] [address] Care Team Providers Care Jar Filler Name Role Phone Jacky Lee MD Primary Care Provider [phone] Reason for Visit * Reason Onset Date Comments MEDICATION REFILL 08/22/2020 Encounter Details Date Type Department Care Team (Late st Contact Info) Description 08/22/2020 Refill [facility] [address] [place] [address], [place] [address] Ahsan Hdz MD [address] [place] [address] [place] [address] MEDICATION REFILL Social History Tobacco Use Types Packs/Day Years Used Date Smoking Tobacco: Former Cigarettes 0.3 20 Smokeless Tobacco: Never Alcohol Use Standard Drinks/Week Comments No 0 (1 standard drink = 0.6 oz pur e alcohol) Comments No Sex and Gender Information Value Date Recorded Sex Assigned at Not on file Legal Sex Female 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 Moxifloxacin Nausea and/or Vomiting ??? Prochlorperazine MECHANICAL FITTER Dysfunction Nothing for nausea except zofran ??? [...] ??? vitamin D, ergocalciferol, (DRISDOL) 1.25 MG (87103 UT) capsule 4 capsule 0 Sig: TAKE 1 CAPSULE BY MOUTH ONCE WEEKLY DIRECTED RVISOR CELLARS documented in this encounter Plan of Treatment Upcoming Encounters Date Type Department Care Team (Late st Contact Info) Description 04/10/2025 1:20 PM CDT Office Visit [facility] - Rheumatology [address] [place] [address], [place] [address] Ahsan Hdz MD [address] [place] [address] 2[address] [place] [address] documented as of this encounter Visit Diagnoses Not on filedocumented in this encounter Care Teams Jar Filler Relationship Specialty Start Date End Date Jacky Lee MD [address] [facility] [address] [facility] [address] [place] [address] PCP - General Internal Medicine 06/10/19 documented as of this encounter
--- OUTSIDE RECORDS SUMMARY | 2025-02-13 13:50 | XMS_ITS | Referral Summary ---
Author Organization [facility] Address [address] [place] [address] Care Team Providers Care Crab Steamer Name Role Phone Jacky Lee MD Primary Care Provider [phone] Encounters Date Type Department Care Team Description 11/30/2024 Orders Only [facility] [address] [place] [address] Unknown, Notinfile from Last 3 Months Allergies [...] a day 90 tablet 10/19/19 Active rizatriptan HOTEL SUPPLIES SALESPERSON (MAXALT-HOTEL SUPPLIES SALESPERSON) 10 mg disintegrating tabletIndications: Migraine without aura [...] 08/22/2024 Assessment & Plan (08/22/2024 7:22 PM ADVANCED PRACTICE PSYCHIATRIC NURSE): Both ears have a normal exam. She [...] 08/22/2024 Assessment & Plan (08/22/2024 7:23 PM ADVANCED PRACTICE PSYCHIATRIC NURSE): She does have normal hearing test and [...] 08/22/2024 Assessment & Plan (08/22/2024 7:24 PM ADVANCED PRACTICE PSYCHIATRIC NURSE): She has been using Afrin nasal spray [...] 02/15/2021 Assessment & Plan (08/22/2024 7:33 PM ADVANCED PRACTICE PSYCHIATRIC NURSE): This could be responsible for the periods [...] 07/05/2020 Assessment & Plan (07/05/2020 10:02 AM ADVANCED PRACTICE PSYCHIATRIC NURSE): Patient has very mild non flow-limiting stenosis left subclavian artery. Noninvasive arterial studies and CT a are essentially normal. Her symptoms do not correlate with left subclavian stenosis and or subclavian steal. From my standpoint no need for further vascular workup. Follow-up with me on a p.r.n. basis. Tachycardia 07/05/2020 Assessment & Plan (07/05/2020 10:04 AM ADVANCED PRACTICE PSYCHIATRIC NURSE): Patient has intermittent tachycardia. Recent Holter monitor [...] syndrome Assessment & Plan (07/05/2020 10:03 AM ADVANCED PRACTICE PSYCHIATRIC NURSE): Currently controlled medical therapy. Arthralgia of shoulder [...] on file Legal Sex Female 2:46 PM ADVANCED PRACTICE PSYCHIATRIC NURSE Gender Identity Not on file Sexual Orientation Not on file Last Filed Vital Signs Vital Sign Reading Time Taken Comments Blood Pressure 142/78 10/18/2024 3:01 PM CDT Pulse 77 10/18/2024 3:01 PM CDT Temperature 36 C (96.8 F) 10/17/2022 1:19 PM CDT Respiratory Rate 18 08/17/2024 3:45 PM ADVANCED PRACTICE PSYCHIATRIC NURSE Oxygen Saturation 99% 10/17/2022 1:19 PM CDT [...] results best viewed via link to PDF [facility] [address] [place] [address], [address], [place] [address] [email or web address] Note to Patients: This report [...] REPORTED: 12/02/2024 Submitting Physician Information: Greta Crews MANAGER WORKERS COMPENSATION- [facility], [address] [place] [address], DERMATOPATHOLOGY REPORT RESULTS DIAGNOSIS: A. SKIN, SUPERIOR [...] procedure. otilia/dxv ICD-9 ZSD.877 Clerical Data A; 34685 B; 17133 C; 45494 D; 44696 The characteristics of special, immunohistochemical, and immunofluorescence stains and in-situ hybridization tests performed by the [facility] were deemed acceptable in ongoing research quality assurance analyst measures and in compliance with regulations drawn from the Clinical Laboratory Improvement Act rh7964 (CLIA '88). Control reactions for all stains performed were deemed adequate and appropriate by a pathologist prior to evaluation of patient tissue. Some diagnoses were rendered with the assistance of laboratory-developed tests utilizing analyte-specific reagents; the performance characteristic of these tests were determined by [facility] and are not cleared or approved by the US Food an Drug administration. Laboratory developed test may only be performed in a facility that is certified by the [facility] as a high-complexity laboratory under CLIA '88. These tests are used for clinical purposes and are not investigational. us Notinfile Unknown LAB PATHOLOGY ORDERABLES Final Result from Last 3 Months Insurance MEDICARE [facility] MEDICARE [facility] MEDICARE [facility] Care Teams Crab Steamer Relationship Specialty Start Date End Date Jacky Lee MD [address] [place] [address] PCP - General 06/20/13
--- OUTSIDE RECORDS SUMMARY | 2025-02-13 13:50 | XMS_ITS | Encounter Summary ---
Author Organization [facility] Address [address] [facility] [place] [address] Care Team Providers Care Design Director Name Role Phone Jacky Lee MD Primary Care Provider [phone] Reason for Visit * Reason Onset Date Comments Reschedule Appointment 03/23/2024 Encounter Details Date Type Department Care Team (Late st Contact Info) Description 03/23/2024 Telephone [facility] Op[facility]mology [address] [place] [address] Ese Peters MD [address] [place] [address] [place] [address] Reschedule Appointment Social History Tobacco [...] on file 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 Gender Identity Not on file Sexual [...] Office Visit [facility] Rheumatology [address] [place] [address], [place] [address] Ahsan Hdz MD [address] [place] [address] [place] [address] documented as of this encounter Visit Diagnoses Not on filedocumented in this encounter Care Teams Design Director Relationship Specialty Start Date End Date Jacky Lee MD [address] [facility] [address] [facility] [address] [place] [address] PCP - General Internal Medicine 06/10/19 documented as of this encounter
--- OUTSIDE RECORDS SUMMARY | 2025-02-13 13:50 | XMS_ITS | Encounter Summary ---
Author Organization [facility] Address [address] [place] [address] Care Team Providers Care Cocoa Bean Roaster Name Role Phone Jacky Lee MD Primary Care Provider [phone] Jacky Lee MD Primary Care Provider [phone] Reason for Visit * Reason Onset Date Comments MEDICATION REFILL 09/21/2018 Encounter Details Date Type Department Care Team (Late Contact Info) Description 09/21/2018 Refill [facility] - Rheumatology [address] [place] [address] Ahsan Hdz MD [address] [place] [address] MEDICATION REFILL Social History Tobacco Use Types Packs/Day Years Used Date Smoking Tobacco: Former Cigarettes 0.3 20 Smokeless Tobacco: Never Alcohol Use Standard Drinks/Week Comments No 0 (1 standard drink = 0.6 oz pur e alcohol) Comments No Sex and Gender Information Value Date Recorded Sex Assigned at Not on file 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 Gender Identity Not on file Sexual Orientation Not on file Occupation Industry Job Start Date Job End Date disabled Not on file Not on file Not on file documented as of this encounter Plan of Treatment Upcoming Encounters Date Type Department Care Team (Late Contact Info) Description 04/10/2025 1:20 PM CDT Office Visit [facility] - Rheumatology [address] [place] [address], [place] [address] Ahsan Hdz MD [address] [place] [address] [place] [address] documented as of this encounter Visit Diagnoses Not on filedocumented in this encounter Care Teams Cocoa Bean Roaster Relationship Specialty Start Date End Date Jacky Lee MD [address] [place] [address] [place] [address] PCP - General 11/11/07 06/09/19 Jacky Lee MD [address] [place] [address] [place] [address] PCP - General Internal Medicine 06/10/19 documented as of this encounter
--- OUTSIDE RECORDS SUMMARY | 2025-02-13 13:51 | XMS_ITS | Clinical Summary ---
Author Organization [facility] Address [address] [place] [address] Care Team Providers Care Senior Java Engineer Name Role Phone Jacky Lee MD Primary Care Provider [phone] Allergies Active Allergy Reactions Criticality Noted Date [...] 90 tablet 11 10/19/19 026 Active rizatriptan COMMERCIAL LINES ACCOUNT MANAGER (MAXALT-COMMERCIAL LINES ACCOUNT MANAGER) 10 mg disintegrating tabletIndications: Migraine without [...] 08/22/2024 Assessment & Plan (08/22/2024 7:22 PM KITCHEN WORK SUPERVISOR): Both ears have a normal exam. She [...] 08/22/2024 Assessment & Plan (08/22/2024 7:23 PM KITCHEN WORK SUPERVISOR): She does have normal hearing test and [...] 08/22/2024 Assessment & Plan (08/22/2024 7:24 PM KITCHEN WORK SUPERVISOR): She has been using Afrin nasal spray [...] 02/15/2021 Assessment & Plan (08/22/2024 7:33 PM KITCHEN WORK SUPERVISOR): This could be responsible for the periods [...] 07/05/2020 Assessment & Plan (07/05/2020 10:02 AM KITCHEN WORK SUPERVISOR): Patient has very mild non flow-limiting stenosis left subclavian artery. Noninvasive arterial studies and CT a are essentially normal. Her symptoms do not correlate with left subclavian stenosis and or subclavian steal. From my standpoint no need for further vascular workup. Follow-up with me on a p.r.n. basis. Tachycardia 07/05/2020 Assessment & Plan (07/05/2020 10:04 AM KITCHEN WORK SUPERVISOR): Patient has intermittent tachycardia. Recent Holter monitor [...] syndrome Assessment & Plan (07/05/2020 10:03 AM KITCHEN WORK SUPERVISOR): Currently controlled medical therapy. Arthralgia of shoulder [...] Orders Only [facility] [address] [place] [address] Unknown, Notinfile from Last 3 Months Immunizations [...] on file Legal Sex Female 2:46 PM KITCHEN WORK SUPERVISOR Gender Identity Not on file Sexual Orientation Not on file Obstetrics History Last Filed Vital Signs Vital Sign Reading Time Taken Comments Blood Pressure 142/78 10/18/2024 3:01 PM CDT Pulse 77 10/18/2024 3:01 PM CDT Temperature 36 C (96.8 F) 10/17/2022 1:19 PM CDT Respiratory Rate 18 08/17/2024 3:45 PM KITCHEN WORK SUPERVISOR Oxygen Saturation 99% 10/17/2022 1:19 PM CDT [...] (1 of 2) 10/24/2013 Influenza Vaccine (#1) 2025 0, 04/12/2019, 05/06/2018, Additional history exists Pneumococcal [...] results best viewed via link to PDF [facility] [facility], [address], [place] [address] [email or web address] Note to Patients: This [...] REPORTED: 12/02/2024 Submitting Physician Information: Greta Crews, [facility], [address] [place] [address], DERMATOPATHOLOGY REPORT RESULTS DIAGNOSIS: A. SKIN, SUPERIOR [...] procedure. otilia/dxv ICD-9 ZSD.877 Clerical Data A; 95240 B; 75743 C; 27570 D; 82053 The characteristics of special, immunohistochemical, and immunofluorescence stains and in-situ hybridization tests performed by the [facility] were deemed acceptable in ongoing quality assurance supervisor chassis measures and in compliance with regulations drawn from the Clinical Laboratory Improvement Act vr3963 (CLIA '88). Control reactions for all stains [...] a facility that is certified by the [facility] as a high-complexity laboratory under CLIA '88. These tests are used for clinical purposes and are not investigational. us Notinfile Unknown LAB PATHOLOGY ORDERABLES Final Result from Last 3 Months Insurance MEDICARE [facility] MEDICARE MEDICARE [facility] Care Teams Senior Java Engineer Relationship Specialty Start Date End Date Jacky Lee MD [address] [facility] [address] [facility] [address] [place] [address] PCP - General 06/20/13
== END 2025-02-13 13:49 | disposition home or self-care (01) ==
LOC: ANHAUDIO 13:48
PROVIDERS: PCP Internal Medicine; Visit Provider Internal Medicine
DX: H93.13 Tinnitus, bilateral (principal); R42 Dizziness and giddiness; M35.2 Behcet's disease; H61.21 Impacted cerumen, right ear; Z82.2 Family history of deafness and hearing loss
CPT/HCPCS: 92557; 92567

== ENCOUNTER 2025-04-07 13:22 | Outpatient (CLI) | payer MEDICARE, SELFPAY ==
--- OUTSIDE RECORDS SUMMARY | 2025-04-07 13:27 | XMS_ITS | Clinical Summary ---
Author Organization [facility] [employer] Address [address] [facility] [address] [place] [address] Care Team Providers Care Targeteer Name Role Phone Jacky Lee MD Primary Care Provider [phone] Source Comments [facility],non-owned Affiliates and Associated Physician Practices is amultiple site organization consisting of ambulatory clinics and hospital sitesin [place], [place], [place] and [place]. This disclosure is being madepursuant to the Care Everywhere program and may not contain all information available regarding this patient. Last updated 18.[facility] [employer] Allergies Active Allergy Reactions Criticality Noted Date Comments Adhesive Sensitivity Rash Low 07/31/2010 Sulfamethoxazole W-Trimethoprim Urticaria Medium 10/11/2018 Butorphanol Anaphylaxis High 07/30/2010 Certolizumab Pegol Urticaria 08/23/2015 Gentamicin Urticaria 07/30/2010 Nitrofurantoin Urticaria,Other Medium 10/11/2018 Welts Meperidine Nausea and/or Vomiting 07/30/2010 Methocarbamol Other Medium 06/16/2016 Moxifloxacin Nausea and/or Vomiting 07/30/2010 Prochlorperazine PRESCHOOL TEACHER ASSISTANT Dysfunction 07/30/2010 Nothing for nausea except zofran [...] (one) tablet by mouth once daily Active topiramate (TOPAMAX) 200 MG tablet TK [...] as needed 2 Active rizatriptan, disintegrating, (Maxalt ROUTE SALES ASSOCIATE) 10 MG tablet Take 1 (one) tablet by mouth as directed 2 Active pravastatin (Pravachol) 80 MG tablet Take 1 (one) tablet by mouth once daily 4 Active polyethylene glycol 3350 (Miralax) 17 GM/SCOOP powder Take 17 (seventeen) g by mouth once daily Active azelastine (Astelin) 0.1 % nasal spray [place] 1 (one) spray into each nostril once [...] EVERY DAY 90 tablet 3 5 Active Apremilast (Otezla) 30 MGIndications:B ehcet's disease (HCC) Take 1 (one) tablet by mouth 2 times daily 180 tablet 3 5 Active Apremilast 30 MG Take 1 (one) tablet by mouth 2 times daily 180 tablet 3 5 Active Apremilast (OTEZLA) 30 MGIndications:B ehcet's disease (HCC) Take 1 tablet by mouth 2 times daily 180 tablet 3 0 03/17/20 25 Discontinu ed(Reorder ) Active Problems Problem Noted Date Diagnosed Date Vitamin deficiency 10/12/2018 Vitamin D deficiency 10/12/2018 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 Spasm of muscle Bladder pain Encounters Date Type Department Care Team Description 03/22/2025 Orders Only [facility] - Rheumatology [address] [place] [phone] Ahsan Hdz MD 03/22/2025 Telephone [facility]ology [address] [place] [phone] Ahsan Hdz MD Refill Request 03/17/2025 Refill [facility] [address] [place] [phone] Ahsan Hdz MD MEDICATION REFILL 03/13/2025 Telephone [facility] [address] [place] [phone] Ahsan Hdz MD Medication Prior Auth Request (Otezla) from Last 3 Months Immunizations Immunization Administration [...] on file Legal Sex Female 6:14 AM SENIOR VICE PRESIDENT Gender Identity Not on file Sexual Orientation [...] CDT Respiratory Rate 18 07/23/2017 2:23 PM SENIOR VICE PRESIDENT Oxygen Saturation 97% 09/28/2023 2:08 PM CDT [...] Office Visit [facility] - Rheumatology [address] [place] [address], [place] [address] Ahsan Hdz MD [address] [place] [address] [address] [place] [address] Health Maintenance Due Date Last Done Comments [...] 10/24/2013 ZOSTER VACCINE (1 of 2) 10/24/2013 DEPRESSION SCREENING 07/20/2024 COVID-19 VACCINE ( - 2024- season) 2025 03/09/2021, 10/11/2020, 09/20/2020 INFLUENZA VACCINE (#1) 2025 3, 04/10/2021, 05/06/2020, Additional history exists Respiratory Syncytial [...] Comment: REPORT COMMENT: FASTING:NO Test Performed at: [facility] [facility] [address] [facility] [place] [address] JAVIER VIZCARRA DO,MPH 03/16/2017 11:0 7 AM CDT 03/16/2017 11:08 AM CDT Pat Amaya MD LAB - CHEMISTRY ORDERABLES Final Result [facility] ([place]) [phone] from Last 3 Months or Most Recently Relevant to Health Maintenance Insurance [facility] MEDICARE MEDICARE Advance Directives * FULL RESUSCITATION (Latest Code Status on File) Date Activated Date Inactivated Comments 09/21/2012 11:48 PM 09/23/2012 1:49 PM Care Teams Targeteer Relationship Specialty Start Date End Date Jacky Lee MD [address] [facility] [address] [place] [address] PCP - General Internal Medicine 06/10/19
--- OUTSIDE RECORDS SUMMARY | 2025-04-07 13:27 | XMS_ITS | Encounter Summary ---
Author Organization [facility] Address [address] [facility] [place] [address] Care Team Providers Care Die Caster Name Role Phone Jacky Lee MD Primary Care Provider [phone] Reason for Visit * Reason Onset Date Comments Refill Request 03/22/2025 Encounter Details Date Type Department Care Team (Late st Contact Info) Description 03/22/2025 Telephone [facility] - Rheumatology [address] [place] [address], [facility] [place] [address] Ahsan dHz MD [address] [place] [address] [place] [address] Refill Request Social History Tobacco [...] on file Legal Sex Female 6:14 AM BEHAVIOR ANALYST Gender Identity Not on file Sexual Orientation Not on file Occupation Industry Job Start Date Job End Date disabled Not on file Not on file Not on file documented as of this encounter Miscellaneous Notes * Telephone Encounter - Kera Emerson RN - 03/22/2025 9:11 AM CDT Fax #: [phone] Refill Request Ruth Lee JESSENIA: 10/10/2024 NOV scheduled: 04/10/2025 LRF: 03/17/2025 Qty Disp: 180 # of refills: 3 Allergies: Allergies[1] Pended Medication Order: Requested Prescriptions Pending Prescriptions Disp Refills Apremilast (Otezla) 30 MG 180 tablet 3 Sig: Take 1 (one) tablet by mouth 2 times daily Patient is switching pharmacies [1] Allergies Allergen Reactions Butorphanol Anaphylaxis Promethazine Other sever dystonia Macrobid [Nitrofurantoin] Urticaria and Other Welts Gentamicin Urticaria Meperidine Nausea and/or Vomiting Moxifloxacin Nausea and/or Vomiting Prochlorperazine VIDEO PRODUCTION ENGINEER Dysfunction Nothing for nausea except zofran Bactrim [...] Description 04/10/2025 1:20 PM CDT Office Visit [facility] - Rheumatology [address] [place] [address], [place] [address] Ahsan Hdz MD [address] [place] [address] 2L [place] [address] documented as of this encounter Visit Diagnoses Diagnosis Behcet's disease (HCC) Behcet's syndrome documented in this encounter Care Teams Die Caster Relationship Specialty Start Date End Date Jacky Lee MD [address] [facility] [address] [facility] [[email or web address]] [address] [place] [address] PCP - General Internal Medicine 06/10/19 documented as of this encounter
--- OUTSIDE RECORDS SUMMARY | 2025-04-07 13:27 | XMS_ITS | Clinical Summary ---
Author Organization [facility] Address [address] [place] [address] Care Team Providers Care Fisher Trawl Net Name Role Phone Jacky Lee MD Primary Care Provider [phone] Allergies Active Allergy Reactions Criticality Noted Date [...] 90 tablet 11 10/19/19 026 Active rizatriptan PACKAGE DESIGNER (MAXALT-PACKAGE DESIGNER) 10 mg disintegrating tabletIndications: Migraine without aura [...] 08/22/2024 Assessment & Plan (08/22/2024 7:22 PM GREIGE GOODS EXAMINER): Both ears have a normal exam. She [...] 08/22/2024 Assessment & Plan (08/22/2024 7:23 PM GREIGE GOODS EXAMINER): She does have normal hearing test and [...] 08/22/2024 Assessment & Plan (08/22/2024 7:24 PM GREIGE GOODS EXAMINER): She has been using Afrin nasal spray [...] 02/15/2021 Assessment & Plan (08/22/2024 7:33 PM GREIGE GOODS EXAMINER): This could be responsible for the periods [...] 07/05/2020 Assessment & Plan (07/05/2020 10:02 AM GREIGE GOODS EXAMINER): Patient has very mild non flow-limiting stenosis left subclavian artery. Noninvasive arterial studies and CT a are essentially normal. Her symptoms do not correlate with left subclavian stenosis and or subclavian steal. From my standpoint no need for further vascular workup. Follow-up with me on a p.r.n. basis. Tachycardia 07/05/2020 Assessment & Plan (07/05/2020 10:04 AM GREIGE GOODS EXAMINER): Patient has intermittent tachycardia. Recent Holter monitor [...] syndrome Assessment & Plan (07/05/2020 10:03 AM GREIGE GOODS EXAMINER): Currently controlled medical therapy. Arthralgia of shoulder [...] Diverticulitis GERD (gastroesophageal reflux disease) Hyperlipidemia Pancolitis Seizures (HCC) Vitamin D deficiency Peripheral neuropathy [...] on file Legal Sex Female 2:46 PM GREIGE GOODS EXAMINER Gender Identity Not on file Sexual Orientation Not on file Obstetrics History Last Filed Vital Signs Vital Sign Reading Time Taken Comments Blood Pressure 142/78 10/18/2024 3:01 PM CDT Pulse 77 10/18/2024 3:01 PM CDT Temperature 36 C (96.8 F) 10/17/2022 1:19 PM CDT Respiratory Rate 18 08/17/2024 3:45 PM GREIGE GOODS EXAMINER Oxygen Saturation 99% 10/17/2022 1:19 PM CDT [...] age to complete this topic Insurance MEDICARE [facility] Care Teams Fisher Trawl Net Relationship Specialty Start Date End Date Jacky Lee MD [address] [place] [address] PCP - General 06/20/13
--- OUTSIDE RECORDS SUMMARY | 2025-04-07 13:27 | XMS_ITS | Encounter Summary ---
Author Organization [facility] Address [address] [facility] [place] [address] Care Team Providers Care Tool Clerk Name Role Phone Jacky Lee MD Primary Care Provider [phone] Reason for Visit * Reason Onset Date Comments MEDICATION REFILL 04/07/2023 Encounter Details Date Type Department Care Team (Late st Contact Info) Description 04/07/2023 Refill [facility] - Rheumatology [address] [place] [address], [facility] [place] [address] Ahsan Hdz MD [address] [place] [address] [place] [address] MEDICATION REFILL Social History Tobacco [...] on file Legal Sex Female 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 Gender Identity Not on file Sexual Orientation Not on file Occupation Industry Job Start Date Job End Date disabled Not on file Not on file Not on file documented as of this encounter Plan of Treatment Upcoming Encounters Date Type Department Care Team (Late st Contact Info) Description 04/10/2025 1:20 PM CDT Office Visit [facility] - Rheumatology [address] [place] [address], [place] [phone] Ahsan Hdz MD [address] [place] [address] [place] [address] documented as of this encounter Visit Diagnoses Diagnosis Behcet's disease (HCC) Behcet's syndrome documented in this encounter Care Teams Tool Clerk Relationship Specialty Start Date End Date Jacky Lee MD [address] [facility] [address] [place] [address] PCP - General Internal Medicine 06/10/19 documented as of this encounter
--- OUTSIDE RECORDS SUMMARY | 2025-04-07 13:27 | XMS_ITS | Encounter Summary ---
Author Organization [facility] Address [address] [facility] 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 Gender Identity Not on file Sexual Orientation [...] Office Visit [facility] - Rheumatology [address] [place] [address], [place] [address] Ahsan Hdz MD [address] [place] [address] [place] [address] documented as of this encounter Visit Diagnoses Not on filedocumented in this encounter Care Teams Mortgage Loan Officer Originator Relationship Specialty Start Date End Date Jacky Lee MD [address] [facility] [address] [facility] [address] [place] [address] PCP - General Internal Medicine 06/10/19 documented as of this encounter
--- OUTSIDE RECORDS SUMMARY | 2025-04-07 13:27 | XMS_ITS | Encounter Summary ---
Author Organization [facility] Address [address] [facility] [place] [address] Care Team Providers Care Spd Tech Name Role Phone Jacky Lee MD Primary Care Provider [phone] Reason for Visit * Reason Onset Date Comments MEDICATION REFILL 08/22/2020 Encounter Details Date Type Department Care Team (Late st Contact Info) Description 08/22/2020 Refill [facility] [address] [place] [address], [place] [address] Ahsan Hdz MD [address] [place] [address] [place] [address] MEDICATION REFILL Social History Tobacco Use Types Packs/Day Years Used Date Smoking Tobacco: Former Cigarettes 0.3 20 Smokeless Tobacco: Never Alcohol Use Standard Drinks/Week Comments No 0 (1 standard drink = 0.6 oz pur e alcohol) Comments No Sex and Gender Information Value Date Recorded Sex Assigned at Not on file Legal Sex Female 6:14 AM LIBRARY ACQUISITIONS TECHNICIAN Gender Identity Not on file Sexual [...] ??? Moxifloxacin Nausea and/or Vomiting ??? Prochlorperazine FIELD CREW CHIEF Dysfunction Nothing for nausea except zofran ??? [...] ??? vitamin D, ergocalciferol, (DRISDOL) 1.25 MG (22891 UT) capsule 4 capsule 0 Sig: TAKE 1 CAPSULE BY MOUTH ONCE WEEKLY DIRECTED ARY ACQUISITIONS TECHNICIAN documented in this encounter Plan of Treatment Upcoming Encounters Date Type Department Care Team (Late st Contact Info) Description 04/10/2025 1:20 PM CDT Office Visit [facility] - Rheumatology [address] [place] [address], [place] [address] Ahsan Hdz MD [address] [place] [address] 2L [place] [address] documented as of this encounter Visit Diagnoses Not on filedocumented in this encounter Care Teams Spd Tech Relationship Specialty Start Date End Date Jacky Lee MD [address] [facility] [address] [facility] [address] [place] [address] PCP - General Internal Medicine 06/10/19 documented as of this encounter
--- OUTSIDE RECORDS SUMMARY | 2025-04-07 13:27 | XMS_ITS | Encounter Summary ---
Author Organization [facility] Address [address] [facility] [place] [address] Care Team Providers Care Center Medical Specialist Name Role Phone Jacky Lee MD Primary Care Provider Reason for Visit * Reason Onset Date Comments Appointment 10/17/2024 Encounter Details Date Type Department Care Team (Late st Contact Info) Description 10/17/2024 Telephone [facility] - Centralized Scheduling [address] [place] [address] Ese Peters MD [address] [facility] [place] [address] Appointment Social History Tobacco Use [...] file Legal Sex Female 6:14 AM TOOL AND DIE MAKER Gender Identity Not on file Sexual [...] would toreschedule, please Patient Call Back Number: [phone] documented in this encounter Plan of Treatment Upcoming Encounters Date Type Department Care Team (Late st Contact Info) Description 04/10/2025 1:20 PM CDT Office Visit [facility] - Rheumatology [address] [place] [address], [place] [address] Ahsan Hdz MD [address] [place] [address] 2L [place] [address] documented as of this encounter Visit Diagnoses Not on filedocumented in this encounter Care Teams Center Medical Specialist Relationship Specialty Start Date End Date Jacky Lee MD [address] [facility] [address] [place] [address] PCP - General Internal Medicine 06/10/19 documented as of this encounter
--- OUTSIDE RECORDS SUMMARY | 2025-04-07 13:27 | XMS_ITS | Encounter Summary ---
Author Organization [facility] Address [address] [facility] [place] [address] Care Team Providers Care Baffle Installer Name Role Phone Jacky Lee MD Primary Care Provider Jacky Lee MD Primary Care Provider [phone] Reason for Visit * Reason Onset Date Comments MEDICATION REFILL 09/21/2018 Encounter Details Date Type Department Care Team (Late Contact Info) Description 09/21/2018 Refill [facility] - Rheumatology [address] [place] [address] Ahsan Hdz MD [address] [place] [address] MEDICATION REFILL Social History Tobacco Use Types Packs/Day Years Used Date Smoking Tobacco: Former Cigarettes 0.3 20 Smokeless Tobacco: Never Alcohol Use Standard Drinks/Week Comments No 0 (1 standard drink = 0.6 oz pur e alcohol) Comments No Sex and Gender Information Value Date Recorded Sex Assigned at Not on file Legal Sex Female 6:14 AM SOURCING ENGINEER Gender Identity Not on file Sexual Orientation Not on file Occupation Industry Job Start Date Job End Date disabled Not on file Not on file Not on file documented as of this encounter Plan of Treatment Upcoming Encounters Date Type Department Care Team (Late Contact Info) Description 04/10/2025 1:20 PM CDT Office Visit [facility] - Rheumatology [address] [place] [address], [place] [address] Ahsan Hdz MD [address] [place] [address] [place] [address] documented as of this encounter Visit Diagnoses Not on filedocumented in this encounter Care Teams Baffle Installer Relationship Specialty Start Date End Date Jacky Lee MD [address] [place] [address] PCP - General 11/11/07 06/09/19 Jacky Lee MD [address] [place] [address] PCP - General Internal Medicine 06/10/19 documented as of this encounter
[2025-04-07 14:11] LABS: Hematocrit 36.6 % (37.0-47.0); Hemoglobin 10.9 g/dL (12.0-15.0); Immature Granulocyte Percent A 0.3 % (0-0.5); Lymphocytes Absolute Auto 1.11 K/mm3 (0.9-3.2); Mean Corpuscular HGB Conc 29.8 g/dl (32-36); Mean Corpuscular Hemoglobin 26.0 pg (26-34); Mean Corpuscular Volume 87.1 fl (80-100); Nucleated Red Blood Cells Absolute Auto 0.000 K/mm3 (0.0-0.012); Nucleated Red Blood Cells Perc 0.0 % (0.0-0.2); Platelet Count Result 229 k/mm3 (150-375); Red Blood Count 4.20 M/mm3 (4.2-5.4); White Blood Count 3.3 K/mm3 (4.5-10.0)
[2025-04-07 14:23] LABS: Hemoglobin A1C 5.9 % (<5.7)
[2025-04-07 14:32] LABS: Alanine Aminotransferase 17 U/L (6-35); Albumin Level 4.3 g/dL (3.5-5.1); Alkaline Phosphatase 114 U/L (38-126); Anion Gap 6 mmol/L (4-12); Aspartate Amino Transferase 27 U/L (14-36); Bilirubin,Total 0.2 mg/dL (0.2-1.3); Blood Urea Nitrogen 14 mg/dL (7-17); Calcium 8.8 mg/dL (8.4-10.2); Carbon Dioxide 24 mmol/L (22-30); Chloride 106 mmol/L (98-107); Cholesterol 191 mg/dL (0-200); Estimated Glomerular Filt Rate 58; Glucose 66 mg/dL (65-110); HDL Direct 103 mg/dL; Potassium 4.3 mmol/L (3.4-5.0); Sodium 136 mmol/L (137-145); Total Protein 6.8 g/dL (6.3-8.2); Triglycerides 139 mg/dL (<150)
[2025-04-07 14:35] LABS: Hypochromasia 1+; Ovalocytes Occasional; Schistocytes Rare
[2025-04-07 14:52] LABS: Free T4 Free Thyroxine 0.71 ng/dL (0.78-2.19)
[2025-04-07 15:25] LABS: Thyroid Stimulating Hormone 0.999 uIU/mL (0.465-4.680)
[2025-04-07 16:00] LABS: Vitamin B12 934.0 pg/mL (239-931)
== END 2025-04-07 13:23 | disposition home or self-care (01) ==
PROVIDERS: PCP Internal Medicine; Visit Provider Internal Medicine
DX: I10 Essential (primary) hypertension (principal); R79.89 Other specified abnormal findings of blood chemistry; E53.8 Deficiency of other specified B group vitamins; E78.2 Mixed hyperlipidemia; E55.9 Vitamin D deficiency, unspecified; Z13.1 Encounter for screening for diabetes mellitus
CPT/HCPCS: 36415; 80053; 80061; 82306; 82607; 82746; 83036; 84439; 84443; 85025

== ENCOUNTER 2025-04-11 14:31 | Outpatient (CLI) | payer MEDICARE, SELFPAY ==
--- OUTSIDE RECORDS SUMMARY | 2025-04-11 14:43 | XMS_ITS | Encounter Summary ---
Author Organization [facility] Address [address] [facility] [place] [address] Care Team Providers Care Grinding And Polishing Laborer Name Role Phone Jacky Lee MD Primary Care Provider [phone] Jacky Lee MD Primary Care Provider [phone] Reason for Visit * Reason Onset Date Comments MEDICATION REFILL 09/21/2018 Encounter Details Date Type Department Care Team (Late st Contact Info) Description 09/21/2018 Refill [facility] - Rheumatology [address] [facility] [place] [address] Ahsan Hdz MD [address] [place] [address] MEDICATION REFILL Social History Tobacco Use Types Packs/Day Years Used Date Smoking Tobacco: Former Cigarettes 0.3 20 Smokeless Tobacco: Never Alcohol Use Standard Drinks/Week Comments No 0 (1 standard drink = 0.6 oz pur e alcohol) Comments No Sex and Gender Information Value Date Recorded Sex Assigned at Not on file Legal Sex Female 6:14 AM SOFTWARE MANAGER Gender Identity Not on file Sexual Orientation Not on file Occupation Industry Job Start Date Job End Date disabled Not on file Not on file Not on file documented as of this encounter Plan of Treatment Not on file documented as of this encounter Visit Diagnoses Not on filedocumented in this encounter Care Teams Grinding And Polishing Laborer Relationship Specialty Start Date End Date Jacky Lee MD [address] [place] [address] PCP - General 11/11/07 06/09/19 Jacky Lee MD [address] [place] [address] PCP - General Internal Medicine 06/10/19 documented as of this encounter
--- OUTSIDE RECORDS SUMMARY | 2025-04-11 14:43 | XMS_ITS | Encounter Summary ---
Author Organization [facility] Address [address] [place] [address] Care Team Providers Care Program Manufacturing Leader Name Role Phone Jacky Lee MD Primary Care Provider [phone] Reason for Visit * Reason Onset Date Comments MEDICATION REFILL 04/07/2023 Encounter Details Date Type Department Care Team (Late st Contact Info) Description 04/07/2023 Refill [facility] - Rheumatology [address] [place] [address], [facility] [place] [address] Ahsan Hdz MD [address] [place] [address] [place] [address] MEDICATION REFILL Social History Tobacco [...] on file 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 Gender Identity Not on file Sexual Orientation Not on file Occupation Industry Job Start Date Job End Date disabled Not on file Not on file Not on file documented as of this encounter Plan of Treatment Not on file documented as of this encounter Visit Diagnoses Diagnosis Behcet's disease (HCC) Behcet's syndrome documented in this encounter Care Teams Program Manufacturing Leader Relationship Specialty Start Date End Date Jacky Lee MD [address] [facility] [address] [facility] [address] [place] [address] PCP - General Internal Medicine 06/10/19 documented as of this encounter
--- OUTSIDE RECORDS SUMMARY | 2025-04-11 14:43 | XMS_ITS | Clinical Summary ---
Author Organization [facility] Address [address] [facility] [place] [address] Care Team Providers Care Line Therapist Name Role Phone Jacky Lee MD Primary Care Provider [phone] Source Comments [facility],non-owned Affiliates and Associated Physician Practices is amultiple site organization consisting of ambulatory clinics and hospital sitesin [place], [place], [place] and [place]. This disclosure is being madepursuant to the Care Everywhere program and may not contain all information available regarding this patient. Last updated 18.[facility] Allergies Active Allergy Reactions Criticality Noted Date Comments Adhesive Sensitivity Rash Low 07/31/2010 Sulfamethoxazole W-Trimethoprim Urticaria Medium 10/11/2018 Butorphanol Anaphylaxis High 07/30/2010 Certolizumab Pegol Urticaria 08/23/2015 Gentamicin Urticaria 07/30/2010 Nitrofurantoin Urticaria,Other Medium 10/11/2018 Welts Meperidine Nausea and/or Vomiting 07/30/2010 Methocarbamol Other Medium 06/16/2016 Moxifloxacin Nausea and/or Vomiting 07/30/2010 Prochlorperazine WEB PORTAL DEVELOPER Dysfunction 07/30/2010 Nothing for nausea except zofran [...] as needed 2 Active rizatriptan, disintegrating, (Maxalt REHAB CARE ASSISTANT) 10 MG tablet Take 1 (one) tablet by mouth as directed 2 Active pravastatin (Pravachol) 80 MG tablet Take 1 (one) tablet by mouth once daily 4 Active polyethylene glycol 3350 (Miralax) 17 GM/SCOOP powder Take 17 (seventeen) g by mouth once daily Active azelastine (Astelin) 0.1 % nasal spray Rossiter 1 (one) spray into each nostril once [...] Orders Only [facility] - Rheumatology [address] [place] [address] Ahsan Hdz MD 03/22/2025 Telephone [facility] - Rheumatology [address] [place] [address] Ahsan Hdz MD Refill Request 03/17/2025 Refill [facility] - Rheumatology [address] [place] [address] Ahsan Hdz MD MEDICATION REFILL 03/13/2025 Telephone [facility] - Rheumatology [address] [place] [address] Ahsan Hdz MD Medication Prior Auth Request [...] on file Legal Sex Female 6:14 AM 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 RELATION 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 Gender Identity Not on file Sexual [...] CDT Respiratory Rate 18 07/23/2017 2:23 PM GUEST RELATION OFFICER Oxygen Saturation 97% 09/28/2023 2:08 PM CDT Inhaled Oxygen Concentration - - Weight 64.5 kg (142 lb 4.8 oz) 10/10/2024 1:08 P M CDT Height 170.2 cm (5' 7) 10/10/2024 1:08 PM CDT Body Mass Index 22.29 10/10/2024 1:08 PM CDT Plan of Treatment Health Maintenance [...] 2) 10/24/2013 DEPRESSION SCREENING 07/20/2024 COVID-19 VACCINE (4 - 2024- season) 2025 03/09/2021, 10/11/2020, 09/20/2020 [...] Comment: REPORT COMMENT: FASTING:NO Test Performed at: [facility] [address] [facility] [place] [address] JAVIER VIZCARRA DO,MPH 03/16/2017 11:0 7 AM CDT 03/16/2017 11:08 AM CDT Pat Amaya MD LAB - CHEMISTRY ORDERABLES Final Result [facility] [address] [place], [place] [id number] [place] [address] from Last 3 Months or Most Recently Relevant to Health Maintenance Insurance [facility] Address: [facility] [id number] [place] [address] MEDICARE MEDICARE Advance Directives * FULL RESUSCITATION (Latest Code Status on File) Date Activated Date Inactivated Comments 09/21/2012 11:48 PM 09/23/2012 1:49 PM Care Teams Line Therapist Relationship Specialty Start Date End Date Jacky Lee MD [address] [place] [address] PCP - General Internal Medicine 06/10/19
--- OUTSIDE RECORDS SUMMARY | 2025-04-11 14:43 | XMS_ITS | Clinical Summary ---
Author Organization [facility] Address [address] [place] [address] Care Team Providers Care Hops Farmworker Name Role Phone Jacky Lee MD Primary Care Provider [phone] Allergies Active Allergy Reactions Criticality Noted Date [...] 90 tablet 11 10/19/19 026 Active rizatriptan LEAF CONDITIONER HELPER (MAXALT-LEAF CONDITIONER HELPER) 10 mg disintegrating tabletIndications: Migraine without aura [...] 08/22/2024 Assessment & Plan (08/22/2024 7:22 PM CARE PROFESSIONALS): Both ears have a normal exam. She [...] 08/22/2024 Assessment & Plan (08/22/2024 7:23 PM CARE PROFESSIONALS): She does have normal hearing test and [...] 08/22/2024 Assessment & Plan (08/22/2024 7:24 PM CARE PROFESSIONALS): She has been using Afrin nasal spray [...] 02/15/2021 Assessment & Plan (08/22/2024 7:33 PM CARE PROFESSIONALS): This could be responsible for the periods [...] 07/05/2020 Assessment & Plan (07/05/2020 10:02 AM CARE PROFESSIONALS): Patient has very mild non flow-limiting stenosis left subclavian artery. Noninvasive arterial studies and CT a are essentially normal. Her symptoms do not correlate with left subclavian stenosis and or subclavian steal. From my standpoint no need for further vascular workup. Follow-up with me on a p.r.n. basis. Tachycardia 07/05/2020 Assessment & Plan (07/05/2020 10:04 AM CARE PROFESSIONALS): Patient has intermittent tachycardia. Recent Holter monitor [...] syndrome Assessment & Plan (07/05/2020 10:03 AM CARE PROFESSIONALS): Currently controlled medical therapy. Arthralgia of shoulder [...] on file Legal Sex Female 2:46 PM CARE PROFESSIONALS Gender Identity Not on file Sexual Orientation Not on file Obstetrics History Last Filed Vital Signs Vital Sign Reading Time Taken Comments Blood Pressure 142/78 10/18/2024 3:01 PM CDT Pulse 77 10/18/2024 3:01 PM CDT Temperature 36 C (96.8 F) 10/17/2022 1:19 PM CDT Respiratory Rate 18 08/17/2024 3:45 PM CARE PROFESSIONALS Oxygen Saturation 99% 10/17/2022 1:19 PM CDT [...] age to complete this topic Insurance MEDICARE [facility] MEDICARE [facility] MEDICARE [facility] Care Teams Hops Farmworker Relationship Specialty Start Date End Date Jacky Lee MD [address] [place] [address] PCP - General 06/20/13
--- OUTSIDE RECORDS SUMMARY | 2025-04-11 14:43 | XMS_ITS | Encounter Summary ---
Author Organization [facility] Address [address] [facility] [place] [address] Care Team Providers Care Virtualization Consultant Name Role Phone Jacky Lee MD Primary Care Provider [phone] Reason for Visit * Reason Onset Date Comments Refill Request 03/22/2025 Encounter Details Date Type Department Care Team (Late st Contact Info) Description 03/22/2025 Telephone [facility] - Rheumatology [address] [place] [address], [facility] [place] [address] Ahsan Hdz MD [address] [place] [address] [place] [address] Refill Request Social History Tobacco [...] on file Legal Sex Female 6:14 AM CHIEF PROGRAM OFFICER Gender Identity Not on file Sexual Orientation Not on file Occupation Industry Job Start Date Job End Date disabled Not on file Not on file Not on file documented as of this encounter Miscellaneous Notes * Telephone Encounter - Kera Emerson RN - 03/22/2025 9:11 AM CDT Fax #: [phone] Refill Request Ruth Lee JESSENIA: 10/10/2024 NOV [...] and/or Vomiting Moxifloxacin Nausea and/or Vomiting Prochlorperazine NECK PINNER Dysfunction Nothing for nausea except zofran Bactrim [Sulfamethoxazole W-Trimethoprim] Urticaria Methocarbamol Other Cimzia [Certolizumab Pegol] Urticaria Quinolones Urticaria Remicade [Infliximab] Other and Fever Contraindicated Robaxin [Methocarbamol] Urticaria Solifenacin Succinate Palpitations Also reacted to Toviaz Adhesive Sensitivity Rash Tegaderm Hydrogel Wound Other Redness/ itching Vesicare [Solifenacin] Other Palpations Palpations Palpations documented in this encounter Plan of Treatment Not on file documented as of this encounter Visit Diagnoses Diagnosis Behcet's disease (HCC) Behcet's syndrome documented in this encounter Care Teams Virtualization Consultant Relationship Specialty Start Date End Date Jacky Lee MD [address] [facility] [address] [place] [address] PCP - General Internal Medicine 06/10/19 documented as of this encounter
--- OUTSIDE RECORDS SUMMARY | 2025-04-11 14:43 | XMS_ITS | Encounter Summary ---
Author Organization [facility] Address [address] [place] [address] Care Team Providers Care Machine Plaster Mixer Name Role Phone Jacky Lee MD Primary Care Provider Reason for Visit * Reason Onset Date Comments Appointment 10/17/2024 Encounter Details Date Type Department Care Team (Late st Contact Info) Description 10/17/2024 Telephone [facility] - Centralized Scheduling [address] [place] [address] Ese Peters MD [address] [facility] [place] [address] Appointment Social History Tobacco Use [...] on file Legal Sex Female 6:14 AM DELI WORKER Gender Identity Not on file Sexual Orientation Not on file Occupation Industry Job Start Date Job End Date disabled Not on file Not on file Not on file documented as of this encounter Miscellaneous Notes * Telephone Encounter - Aracely Islas - 10/17/2024 11:10 AM CDT Current Provider: Lorraine Reason for Call: pt had to cancel her 6 MO OV with Piri this afternoon b/c she is ill. She would toreschedule, please Patient Call Back Number: [phone] documented in this encounter Plan of Treatment Not on file documented as of this encounter Visit Diagnoses Not on filedocumented in this encounter Care Teams Machine Plaster Mixer Relationship Specialty Start Date End Date Jacky Lee MD [address] [facility] [address] [place] [address] PCP - General Internal Medicine 06/10/19 documented as of this encounter
--- OUTSIDE RECORDS SUMMARY | 2025-04-11 14:43 | XMS_ITS | Encounter Summary ---
Author Organization [facility] Address [address] [facility] [place] [address] Care Team Providers Care Health Education Teacher Name Role Phone Jacky Lee MD Primary Care Provider [phone] Reason for Visit * Reason Onset Date Comments Reschedule Appointment 03/23/2024 Encounter Details Date Type Department Care Team (Late st Contact Info) Description 03/23/2024 Telephone [facility] - Ophthalmology [address] [place] [address] Ese Peters MD [address] [place] [address] [place] [address] Reschedule Appointment Social History Tobacco [...] on file Legal Sex Female 6:[address] DEPUTY CLERK Gender Identity Not on file Sexual Orientation [...] on filedocumented in this encounter Care Teams Health Education Teacher Relationship Specialty Start Date End Date Jacky Lee MD [address] [facility] [address] [place] [address] PCP - General Internal Medicine 06/10/19 documented as of this encounter
--- OUTSIDE RECORDS SUMMARY | 2025-04-11 14:43 | XMS_ITS | Encounter Summary ---
Author Organization [facility] Address [address] [facility] [place] [address] Care Team Providers Care Tube Winder Hand Name Role Phone Jacky Lee MD Primary Care Provider [phone] Reason for Visit * Reason Onset Date Comments MEDICATION REFILL 08/22/2020 Encounter Details Date Type Department Care Team (Late st Contact Info) Description 08/22/2020 Refill [facility] [address] [place] [address], [place] [address] Ahsan Hdz MD [address] [place] [address] [place] [address] MEDICATION REFILL Social History Tobacco Use Types Packs/Day Years Used Date Smoking Tobacco: Former Cigarettes 0.3 20 Smokeless Tobacco: Never Alcohol Use Standard Drinks/Week Comments No 0 (1 standard drink = 0.6 oz pur e alcohol) Comments No Sex and Gender Information Value Date Recorded Sex Assigned at Not on file Legal Sex Female 6:14 AM MANGLE OPERATOR GARMENTS Gender Identity Not on file Sexual Orientation [...] ??? Moxifloxacin Nausea and/or Vomiting ??? Prochlorperazine ASSISTANT SURVEYOR Dysfunction Nothing for nausea except zofran ??? [...] ??? vitamin D, ergocalciferol, (DRISDOL) 1.25 MG (50778 UT) capsule 4 capsule 0 Sig: TAKE 1 CAPSULE BY MOUTH ONCE WEEKLY DIRECTED LE OPERATOR GARMENTS documented in this encounter Plan of Treatment Not on file documented as of this encounter Visit Diagnoses Not on filedocumented in this encounter Care Teams Tube Winder Hand Relationship Specialty Start Date End Date Jacky Lee MD [address] [facility] [address] [place] [address] PCP - General Internal Medicine 06/10/19 documented as of this encounter
[2025-04-11 16:00] LABS: CRP < 0.5 mg/dL (<1.0)
== END 2025-04-11 14:32 | disposition home or self-care (01) ==
LOC: ANHLAB 14:34
PROVIDERS: PCP Internal Medicine; Visit Provider Internal Medicine
DX: M79.7 Fibromyalgia (principal); Z79.899 Other long term (current) drug therapy
CPT/HCPCS: 36415; 85652; 86140

== ENCOUNTER 2025-04-20 15:14 | Outpatient (CLI) | payer MEDICARE, SELFPAY ==
--- OUTSIDE RECORDS SUMMARY | 2025-04-20 15:19 | XMS_ITS | Encounter Summary ---
Author Organization [facility] Address [address] [facility] [place] [address] Care Team Providers Care Senior Linux Unix Engineer Name Role Phone Jacky Lee MD Primary Care Provider [phone] Reason for Visit * Reason Onset Date Comments Refill Request 03/22/2025 Encounter Details Date Type Department Care Team (Late st Contact Info) Description 03/22/2025 Telephone [facility] - Rheumatology [address] [place] [address], [facility] [place] [address] hAsan Hdz MD [address] [place] [address] [place] [address] Refill Request Social History Tobacco [...] on file Legal Sex Female 6:14 AM HEALTH DIAGNOSTICS TEACHER Gender Identity Not on file Sexual Orientation Not on file Occupation Industry Job Start Date Job End Date disabled Not on file Not on file Not on file documented as of this encounter Miscellaneous Notes * Telephone Encounter - Kera Emerson RN - 03/22/2025 9:11 AM CDT Fax #: [phone] Refill Request Ruth Lee JESSENIA: 10/10/2024 NOV [...] and/or Vomiting Moxifloxacin Nausea and/or Vomiting Prochlorperazine TURN OPERATOR Dysfunction Nothing for nausea except zofran Bactrim [...] Care Team (Late st Contact Info) Description 07/18/2025 1:40 PM HEALTH DIAGNOSTICS TEACHER Office Visit [facility] - Rheumatology [address] [place] [address], [place] [address] Ahsan Hdz MD [address] [place] [address] 2L [place] [address] documented as of this encounter Visit Diagnoses Diagnosis Behcet's disease (HCC) Behcet's syndrome documented in this encounter Care Teams Senior Linux Unix Engineer Relationship Specialty Start Date End Date Jacky Lee MD [address] [facility] [address] [facility] [address] [place] [address] PCP - General Internal Medicine 06/10/19 documented as of this encounter
--- OUTSIDE RECORDS SUMMARY | 2025-04-20 15:19 | XMS_ITS | Encounter Summary ---
Author Organization [facility] Address [address] [facility] [place] [address] Care Team Providers Care Box Press Operator Name Role Phone Jacky Lee MD Primary Care Provider [phone] Reason for Visit * Reason Onset Date Comments Appointment 10/17/2024 Encounter Details Date Type Department Care Team (Late st Contact Info) Description 10/17/2024 Telephone [facility] - Centralized Scheduling [address] [place] [address] Ese Peters MD [address] [facility] [place] [address] Appointment Social History Tobacco Use [...] on file Legal Sex Female 6:14 AM GROUT WORKER Gender Identity Not on file Sexual [...] would toreschedule, please Patient Call Back Number: [phone] documented in this encounter Plan of Treatment Upcoming Encounters Date Type Department Care Team (Late st Contact Info) Description 07/18/2025 1:40 PM GROUT WORKER Office Visit [facility] - Rheumatology [address] [place] [address], [place] [address] Ahsan Hdz MD [address] [place] [address] 2L [place] [phone] documented as of this encounter Visit Diagnoses Not on filedocumented in this encounter Care Teams Box Press Operator Relationship Specialty Start Date End Date Jacky Lee MD [address] [facility] [address] [place] [phone] PCP - General Internal Medicine 06/10/19 documented as of this encounter
--- OUTSIDE RECORDS SUMMARY | 2025-04-20 15:19 | XMS_ITS | Encounter Summary ---
Author Organization [facility] Address [address] [facility] [place] [address] Care Team Providers Care Oven Drier Tender Name Role Phone Jacky Lee MD Primary Care Provider [phone] Jacky Lee MD Primary Care Provider [phone] Reason for Visit * Reason Onset Date Comments MEDICATION REFILL 09/21/2018 Encounter Details Date Type Department Care Team (Late Contact Info) Description 09/21/2018 Refill [facility] - Rheumatology [address] [place] [address] Ahsan Hdz MD [address] [place] [address] MEDICATION REFILL Social History Tobacco Use Types Packs/Day Years Used Date Smoking Tobacco: Former Cigarettes 0.3 20 Smokeless Tobacco: Never Alcohol Use Standard Drinks/Week Comments No 0 (1 standard drink = 0.6 oz pur e alcohol) Comments No Sex and Gender Information Value Date Recorded Sex Assigned at Not on file Legal Sex Female 6:14 AM LAN/WAN ENGINEER Gender Identity Not on file Sexual Orientation Not on file Occupation Industry Job Start Date Job End Date disabled Not on file Not on file Not on file documented as of this encounter Plan of Treatment Upcoming Encounters Date Type Department Care Team (Late Contact Info) Description 07/18/2025 1:40 PM LAN/WAN ENGINEER Office Visit [facility] - Rheumatology [address] [place] [address], [place] [address] Ahsan Hdz MD [address] [place] [address] 2[address] [place] [address] documented as of this encounter Visit Diagnoses Not on filedocumented in this encounter Care Teams Oven Drier Tender Relationship Specialty Start Date End Date Jacky Lee MD [address] [place] [address] [place] [address] PCP - General 11/11/07 06/09/19 Jacky Lee MD [address] [facility] [address] [place] [address] PCP - General Internal Medicine 06/10/19 documented as of this encounter
--- OUTSIDE RECORDS SUMMARY | 2025-04-20 15:19 | XMS_ITS | Clinical Summary ---
Author Organization [facility] Address [address] [place] [address] Care Team Providers Care Executive Manager Name Role Phone Jacky Lee MD Primary Care Provider [phone] Allergies Active Allergy Reactions Criticality Noted Date [...] 90 tablet 11 10/19/19 026 Active rizatriptan CARTRIDGE BELT PUNCHER (MAXALT-CARTRIDGE BELT PUNCHER) 10 mg disintegrating tabletIndications: Migraine without aura [...] 08/22/2024 Assessment & Plan (08/22/2024 7:22 PM MEDICAL RESEARCH TECH): Both ears have a normal exam. She [...] 08/22/2024 Assessment & Plan (08/22/2024 7:23 PM MEDICAL RESEARCH TECH): She does have normal hearing test and [...] 08/22/2024 Assessment & Plan (08/22/2024 7:24 PM MEDICAL RESEARCH TECH): She has been using Afrin nasal spray [...] 02/15/2021 Assessment & Plan (08/22/2024 7:33 PM MEDICAL RESEARCH TECH): This could be responsible for the periods [...] 07/05/2020 Assessment & Plan (07/05/2020 10:02 AM MEDICAL RESEARCH TECH): Patient has very mild non flow-limiting stenosis left subclavian artery. Noninvasive arterial studies and CT a are essentially normal. Her symptoms do not correlate with left subclavian stenosis and or subclavian steal. From my standpoint no need for further vascular workup. Follow-up with me on a p.r.n. basis. Tachycardia 07/05/2020 Assessment & Plan (07/05/2020 10:04 AM MEDICAL RESEARCH TECH): Patient has intermittent tachycardia. Recent Holter monitor [...] syndrome Assessment & Plan (07/05/2020 10:03 AM MEDICAL RESEARCH TECH): Currently controlled medical therapy. Arthralgia of shoulder [...] on file Legal Sex Female 2:46 PM MEDICAL RESEARCH TECH Gender Identity Not on file Sexual Orientation Not on file Obstetrics History Last Filed Vital Signs Vital Sign Reading Time Taken Comments Blood Pressure 142/78 10/18/2024 3:01 PM CDT Pulse 77 10/18/2024 3:01 PM CDT Temperature 36 C (96.8 F) 10/17/2022 1:19 PM CDT Respiratory Rate 18 08/17/2024 3:45 PM MEDICAL RESEARCH TECH Oxygen Saturation 99% 10/17/2022 1:19 PM CDT [...] age to complete this topic Insurance MEDICARE [facility] MEDICARE [facility] MEDICARE [facility] Care Teams Executive Manager Relationship Specialty Start Date End Date Jacky Lee MD PCP - General 06/20/13
--- OUTSIDE RECORDS SUMMARY | 2025-04-20 15:19 | XMS_ITS | Encounter Summary ---
Author Organization [facility] Address [address] [facility] [place] [address] Care Team Providers Care Transportation Mechanic Name Role Phone Jacky Lee MD Primary Care Provider [phone] Reason for Visit * Reason Onset Date Comments MEDICATION REFILL 08/22/2020 Encounter Details Date Type Department Care Team (Late st Contact Info) Description 08/22/2020 Refill [facility] [address] [place] [address], [place] [address] Ahsan Hdz MD [address] [place] [address] [place] [address] MEDICATION REFILL Social History Tobacco Use Types Packs/Day Years Used Date Smoking Tobacco: Former Cigarettes 0.3 20 Smokeless Tobacco: Never Alcohol Use Standard Drinks/Week Comments No 0 (1 standard drink = 0.6 oz pur e alcohol) Comments No Sex and Gender Information Value Date Recorded Sex Assigned at Not on file Legal Sex Female 6:14 AM DOPER OPERATOR Gender Identity Not on file Sexual [...] ??? Moxifloxacin Nausea and/or Vomiting ??? Prochlorperazine EVALUATION MANAGER Dysfunction Nothing for nausea except zofran ??? [...] ??? vitamin D, ergocalciferol, (DRISDOL) 1.25 MG (26768 UT) capsule 4 capsule 0 Sig: TAKE 1 CAPSULE BY MOUTH ONCE WEEKLY DIRECTED R OPERATOR documented in this encounter Plan of Treatment Upcoming Encounters Date Type Department Care Team (Late st Contact Info) Description 07/18/2025 1:40 PM DOPER OPERATOR Office Visit [facility] - Rheumatology [address] [place] [address], [place] [address] Ahsan Hdz MD [address] [place] [address] [address] [place] [address] documented as of this encounter Visit Diagnoses Not on filedocumented in this encounter Care Teams Transportation Mechanic Relationship Specialty Start Date End Date Jacky Lee MD [address] [facility] [address] [facility] [address] [place] [address] PCP - General Internal Medicine 06/10/19 documented as of this encounter
--- OUTSIDE RECORDS SUMMARY | 2025-04-20 15:19 | XMS_ITS | Encounter Summary ---
Author Organization [facility] Address [address] [place] [address] Care Team Providers Care Concrete Curer Name Role Phone Jacky Lee MD Primary Care Provider [phone] Reason for Visit * Reason Onset Date Comments Reschedule Appointment 03/23/2024 Encounter Details Date Type Department Care Team (Late st Contact Info) Description 03/23/2024 Telephone [facility] - Ophthalmology [address] [place] [address] Ese Peters MD [address] [place] [address] [place] [address] Reschedule Appointment Social History Tobacco [...] on file Legal Sex Female 6:14 AM AUTO ENGINE MECHANIC Gender Identity Not on file Sexual Orientation [...] st Contact Info) Description 07/18/2025 1:40 PM AUTO ENGINE MECHANIC Office Visit [facility] - Rheumatology [address] [place] [address], [place] [address] Ahsan Hdz MD [address] [place] [address] [place] [address] documented as of this encounter Visit Diagnoses Not on filedocumented in this encounter Care Teams Concrete Curer Relationship Specialty Start Date End Date Jacky Lee MD [address] [facility] [address] [facility] [address] [place] [phone] PCP - General Internal Medicine 06/10/19 documented as of this encounter
--- OUTSIDE RECORDS SUMMARY | 2025-04-20 15:19 | XMS_ITS | Clinical Summary ---
Author Organization [facility] Address [address] [facility] [place] [address] Care Team Providers Care Principal Planner Name Role Phone Jacky Lee MD Primary Care Provider [phone] Source Comments [facility],non-owned Affiliates and Associated Physician Practices is amultiple site organization consisting of ambulatory clinics and hospital sitesin [place], [place], [place] and [place]. This disclosure is being madepursuant to the Care Everywhere program and may not contain all information available regarding this patient. Last updated 18.[facility] Allergies Active Allergy Reactions Criticality Noted Date Comments Adhesive Sensitivity Rash Low 07/31/2010 Sulfamethoxazole W-Trimethoprim Urticaria Medium 10/11/2018 Butorphanol Anaphylaxis High 07/30/2010 Certolizumab Pegol Urticaria 08/23/2015 Gentamicin Urticaria 07/30/2010 Nitrofurantoin Urticaria,Other Medium 10/11/2018 Welts Meperidine Nausea and/or Vomiting 07/30/2010 Methocarbamol Other Medium 06/16/2016 Moxifloxacin Nausea and/or Vomiting 07/30/2010 Prochlorperazine OFFICE MAIL CLERK Dysfunction 07/30/2010 Nothing for nausea except [...] as needed 2 Active rizatriptan, disintegrating, (Maxalt MAKEUP ARTISTRY INSTRUCTOR) 10 MG tablet Take 1 (one) tablet by mouth as directed 2 Active pravastatin (Pravachol) 80 MG tablet Take 1 (one) tablet by mouth once daily 4 Active polyethylene glycol 3350 (Miralax) 17 GM/SCOOP powder Take 17 (seventeen) g by mouth once daily Active azelastine (Astelin) 0.1 % nasal spray [place] 1 (one) spray into each nostril once [...] times daily 180 tablet 3 5 Active Active Problems Problem Noted Date Diagnosed Date Vitamin deficiency 10/12/2018 Vitamin D deficiency 10/12/2018 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 Spasm of muscle Bladder pain Encounters Date Type Department Care Team Description 04/14/2025 Travel 04/14/2025 Telephone [facility] - Rheumatology [address] [place] [address] Ahsan Hdz MD Appointment 03/22/2025 Orders Only [facility] - Rheumatology [address] [place] [phone] Ahsan Hdz MD 03/22/2025 Telephone [facility] - Rheumatology [address] [place] [address] Ahsan Hdz MD Refill Request 03/17/2025 Refill [facility] - Rheumatology [address] [place] [address] Ahsan Hdz MD MEDICATION REFILL 03/13/2025 Telephone [facility] - Rheumatology [address] [place] [phone] Ahsan Hdz MD Medication Prior Auth Request [...] on file Legal Sex Female 6:14 AM COMMUNITY MIDWIFE Gender Identity Not on file Sexual Orientation [...] CDT Respiratory Rate 18 07/23/2017 2:23 PM COMMUNITY MIDWIFE Oxygen Saturation 97% 09/28/2023 2:08 PM CDT Inhaled Oxygen Concentration - - Weight 64.5 kg (142 lb 4.8 oz) 10/10/2024 1:08 P M CDT Height 170.2 cm (5' 7) 10/10/2024 1:08 PM CDT Body Mass Index 22.29 10/10/2024 1:08 PM CDT Plan of Treatment Upcoming Encounters Date Type Department Care Team (Late st Contact Info) Description 07/18/2025 1:40 PM COMMUNITY MIDWIFE Office Visit [facility] - Rheumatology [address] [place] [address], [place] [address] Ahsan Hdz MD [address] [place] [address] [place] [address] Health Maintenance Due Date Last Done Comments [...] DEPRESSION SCREENING 07/20/2024 COVID-19 VACCINE ( - season) 2025 03/09/2021, 10/11/2020, 09/20/2020 INFLUENZA VACCINE (#1) 2025 , 04/10/2021, 05/06/2020, [...] Comment: REPORT COMMENT: FASTING:NO Test Performed at: [facility] [address] [place] [address] JAVIER VIZCARRA DO,MPH 03/16/2017 11:0 7 AM CDT 03/16/2017 11:08 AM CDT Pat Amaya MD LAB - CHEMISTRY ORDERABLES Final Result [facility] ([facility]) [id number] from Last 3 Months or Most Recently Relevant to Health Maintenance Insurance [facility] Address: [facility] [id number] [place] [address] MEDICARE MEDICARE Advance Directives * FULL RESUSCITATION (Latest Code Status on File) Date Activated Date Inactivated Comments 09/21/2012 11:48 PM 09/23/2012 1:49 PM Care Teams Principal Planner Relationship Specialty Start Date End Date Jacky Lee MD [address] [facility] [address] [place] [phone] PCP - General Internal Medicine 06/10/19
--- OUTSIDE RECORDS SUMMARY | 2025-04-20 15:19 | XMS_ITS | Encounter Summary ---
Author Organization [facility] Address [address] [place] [address] Care Team Providers Care Service Employee Name Role Phone Jacky Lee MD Primary Care Provider [phone] Reason for Visit * Reason Onset Date Comments MEDICATION REFILL 04/07/2023 Encounter Details Date Type Department Care Team (Late st Contact Info) Description 04/07/2023 Refill [facility] - Rheumatology [address] [place] [address], [facility] [place] [address] Ahsan Hdz MD [address] [place] [address] [place] [address] MEDICATION REFILL Social History Tobacco [...] on file Legal Sex Female 6:14 AM [employer] Gender Identity Not on file Sexual Orientation Not on file Occupation Industry Job Start Date Job End Date disabled Not on file Not on file Not on file documented as of this encounter Plan of Treatment Upcoming Encounters Date Type Department Care Team (Late st Contact Info) Description 07/18/2025 1:40 PM [employer] Office Visit [facility] - Rheumatology [address] [place] [address], [place] [id number] Ahsan Hdz MD [address] [place] [address] [place] [address] documented as of this encounter Visit Diagnoses Diagnosis Behcet's disease (HCC) Behcet's syndrome documented in this encounter Care Teams Service Employee Relationship Specialty Start Date End Date Jacky Lee MD [address] [facility] [address] [place] [address] PCP - General Internal Medicine 06/10/19 documented as of this encounter
[2025-04-20 15:30] LABS: Hematocrit 37.7 % (37.0-47.0); Hemoglobin 11.5 g/dL (12.0-15.0); Immature Granulocyte Percent A 0.5 % (0-0.5); Lymphocytes Absolute Auto 0.96 K/mm3 (0.9-3.2); Mean Corpuscular HGB Conc 30.5 g/dl (32-36); Mean Corpuscular Hemoglobin 26.0 pg (26-34); Mean Corpuscular Volume 85.1 fl (80-100); Nucleated Red Blood Cells Absolute Auto 0.000 K/mm3 (0.0-0.012); Nucleated Red Blood Cells Perc 0.0 % (0.0-0.2); Platelet Count Result 256 k/mm3 (150-375); Red Blood Count 4.43 M/mm3 (4.2-5.4); White Blood Count 4.3 K/mm3 (4.5-10.0)
[2025-04-20 15:54] LABS: Anion Gap 10 mmol/L (4-12); Blood Urea Nitrogen 12 mg/dL (7-17); Calcium 9.2 mg/dL (8.4-10.2); Carbon Dioxide 21 mmol/L (22-30); Chloride 106 mmol/L (98-107); Estimated Glomerular Filt Rate 58; Glucose 106 mg/dL (65-110); Potassium 4.5 mmol/L (3.4-5.0); Sodium 137 mmol/L (137-145)
== END 2025-04-20 15:15 | disposition home or self-care (01) ==
PROVIDERS: PCP Internal Medicine; Visit Provider Internal Medicine
DX: I10 Essential (primary) hypertension (principal)
CPT/HCPCS: 36415; 80048; 85025

== ENCOUNTER 2025-04-25 11:50 | Outpatient (CLI) | payer MEDICARE, SELFPAY ==
--- NOTE | ~2025-04-25 | CT_ITS ---
EXAMINATION: CT abdomen w con DATE: 04/25/2025 12:18 INDICATION: Hereditary elliptocytosis. TECHNIQUE: Computed tomography (CT) of the abdomen was performed with 100 mL Omnipaque 350 intravenous contrast. Automated exposure control and iterative reconstruction technique were employed. The dose-length product was 134.39 mGy-cm. COMPARISON: CT abdomen and pelvis 06/02/2019 FINDINGS: The visualized portions of lung bases demonstrate mild atelectasis. No pleural effusion. The heart size is normal. No pericardial effusion. Calcifications in the liver and spleen are consistent with old granulomatous disease. There is a 5 mm cyst in the liver. The spleen is normal in size and measures 10.4 cm in longest dimension. The gallbladder, pancreas, adrenal glands, and kidneys are normal. There are no dilated loops of bowel. There are no pathologically enlarged lymph nodes. There is no free intraperitoneal fluid. There is mild lumbar spondylosis. IMPRESSION: 1. Normal size of the spleen. Reviewed, dictated and finalized at location E.
== END 2025-04-25 11:51 | disposition home or self-care (01) ==
LOC: MICIMG 11:52
PROVIDERS: PCP Internal Medicine; Visit Provider Internal Medicine
DX: D58.1 Hereditary elliptocytosis (principal); Z86.19 Personal history of other infectious and parasitic diseases
CPT/HCPCS: 74160; Q9967